=== PATIENT | male | born 1940 ===

== ENCOUNTER 2017-08-08 21:18 | Inpatient (IN) | payer MEDICARE ==
[2017-08-08 21:30] VITALS: BMI 34.0
[2017-08-08 21:42] LABS: BASO # 0.1 K/uL (0.0-0.2); BASO % 0.8 % (0.0-2.0); EOS # 0.1 K/uL (0.0-0.7); EOS % 1.3 % (0.0-4.0); HEMATOCRIT 51.3 % (35.0-51.0); LYMPH # 3.9 K/uL (1.0-4.3); LYMPH % 39.8 % (20.0-40.0); MEAN CORPUSCULAR HEMOGLOBIN 32.3 pg (27.0-31.0); MEAN PLATELET VOLUME 8.8 fL (7.2-11.7); MONO # 1.1 K/uL (0.0-0.8); MONO % 11.3 % (0.0-10.0); NRBC % 0.2 % (0.0-2.0); RED CELL DISTRIBUTION WIDTH 13.9 % (11.5-14.5); WHITE BLOOD COUNT 9.9 K/uL (4.8-10.8)
[2017-08-08 21:50] LABS: INR 1.1
[2017-08-08 21:59] LABS: ALB/GLOB RATIO 1.7 (1.0-2.1); ALKALINE PHOSPHATASE 95 U/L (38-126); ALT/SGPT 69 U/L (21-72); AST/SGOT 57 U/L (17-59); BLOOD UREA NITROGEN 14 mg/dL (9-20); CARBON DIOXIDE 20 mmol/L (22-30); CHLORIDE 102 mmol/L (98-107); GFR AFRICAN-AMERICAN > 60; GLUCOSE,RANDOM 121 mg/dL (75-110); POTASSIUM 3.4 mmol/L (3.6-5.2); SODIUM 136 mmol/L (132-148)
[2017-08-08] MEDS: Magnesium Sulfate 1 gm in D5W 1 GM/100 ML BAG IVPB SCH ×2 (22:00→22:03)
[2017-08-08] MEDS ORDERED: Propofol 10 mg/ml 1,000 MG/100 ML VIAL ONE (22:12)
[2017-08-08] MEDS ORDERED: Propofol 10 mg/ml Inj (20 ML) ONE (22:12)
[2017-08-08] MEDS ORDERED: Lidocaine 2 Grams in D5W 2,000 MG/500 ML BAG IV ONE (22:13)
[2017-08-08] MEDS ORDERED: Lidocaine 2 Grams in D5W 2,000 MG/500 ML BAG IV SCH (22:15)
[2017-08-08] MEDS ORDERED: Midazolam 2 MG/2 ML VIAL ONE (22:17)
[2017-08-08] MEDS ORDERED: Lidocaine 2% Inj (20ml) ONE (22:17)
--- NOTE | 2017-08-08 22:35 | C.PDOC ---
History Of Present Illness 76 year old male brought in by BLS after having LOC and found with an arrhythmia. BLS believed patient had torsades de pointes and shocked patient twice, patient returned to rhythm. Patient had a cardiac stent placed today with stent by Dr. Velez at [facility] [place]. Time Seen by Provider: 08/08/17 21:28 Chief Complaint (Nursing): Chest Pain History Per: EMS History/Exam Limitations: no limitations Onset/Duration Of Symptoms: Hrs Current Symptoms Are (Timing): Still Present Associated Symptoms: Syncope Recent travel outside of the [place]: No Past Medical History Reviewed: Historical Data, Nursing Documentation, Vital Signs Vital Signs: Last Vital Signs Temp 97.7 F 08/12/17 16:00 Pulse 56 L 08/12/17 20:00 Resp 10 L 08/12/17 20:00 BP 122/64 08/12/17 19:37 Pulse Ox 97 08/12/17 20:00 - Medical History PMH: HTN Surgical History: Coronary Stent Family History: States: Unknown Family Hx - Social History Hx Alcohol Use: No Hx Substance Use: No - Immunization History Hx Tetanus Toxoid Vaccination: No Hx Influenza Vaccination: No Hx Pneumococcal Vaccination: No Review Of Systems Constitutional: Negative for: Fever, Chills Cardiovascular: Negative for: Palpitations Respiratory: Negative for: Shortness of Breath Gastrointestinal: Negative for: Nausea, Vomiting Genitourinary: Negative for: Dysuria Skin: Negative for: Rash Neurological: Positive for: Other (LOC). Negative for: Weakness, Numbness Physical Exam - Physical Exam Appears: Non-toxic, No Acute Distress Skin: Normal Color, Warm, Dry Head: Atraumatic, Normacephalic Eye(s): bilateral: Normal Inspection, PERRL Oral Mucosa: Moist Neck: Normal, Supple Chest: Symmetrical Cardiovascular: Rhythm Regular Respiratory: Normal Breath Sounds, No Rales, No Rhonchi, No Wheezing Gastrointestinal/Abdominal: Soft, No Distention, Other (Obese) Male Genital: Other (Bandage to irght groin from cath. No swelling, ecchymosis, or pusitile mass.) Neurological/Psych: Oriented x3 ED Course And Treatment - Laboratory Results Result Diagrams: 08/12/17 06:36 08/12/17 06:36 ECG: Interpreted By Me ECG Rhythm: Atrial Fibrillation ECG Interpretation: Abnormal Rate From EC O2 Sat by Pulse Oximetry: 88 Pulse Ox Interpretation: Abnormal - Radiology CXR: Interpreted by Me CXR Interpretation: Yes: Heart Size, Other (+ widened mediastinum) Progress Note: 2114: Arrived ED, A/O x 3, hr irreg 70's, EKG AF 70, Mag Sulfate x 2 g IV, Amiodarone 150 mg IV bolus. 2119: ? Torades and LOC, + shock x 2 with regain of perfusing rhythm. Call to Dr. Casiano and Dr. Velez- who cath and one stent this AM. 2144: SHock x 1, amio Drip started, Code Heart Called- Heparin 500 IV, Plavix 75 mg PO, ASA 325 PO given. 2199: non-perfusing arrhythmia- Shock x 2 with return of perfusing rhythm. 2209: Dr. Velez in ED, Lido bolus and drip started, Amio drip d/c'd by Dr. Velez, requests pt intubated , non-perfusing arrhythmia w shock x 2 to perfusing rhythm. Repeat EKG AF 70, no acute ST changes. 2224: Pt electively intubated by this MD, propofol for sedation. 2229: pt left ED for Settlement Agent Critical Care Time - Critical Care Note Total Time (in mins): 90 Documented critical care: time excludes all time spent performing seperately billable procedures. Medical Decision Making Medical Decision Making: arrhythmia of Torsades de Pointes vs VF, refractory to Amiodaron and Lido, and Mg IV Code Heart by Dr. Velez, consider acute occluded stent placed this AM PMD Dr. Torres, who's pt's are admitted usually to Dr. Salas. Disposition Doctor Will See Patient In The: Hospital Counseled Patient/Family Regarding: Studies Performed, Diagnosis - Disposition Disposition: HOSPITALIZED Disposition Time: 22:50 Condition: CRITICAL - POA Core Measure Indicators: Code Heart - Clinical Impression Clinical Impression: Cardiac arrest, Acute non-ST segment elevation myocardial infarction, Torsades de pointes - Scribe Statement The provider has reviewed the documentation as recorded by the Scribnati Min All medical record entries made by the Scribe were at my direction and personally dictated by me. I have reviewed the chart and agree that the record accurately reflects my personal performance of the history, physical exam, medical decision making, and the department course for this patient. I have also personally directed, reviewed, and agree with the discharge instructions and disposition.
[2017-08-08] MEDS ORDERED: Propofol 10 mg/ml Inj (100 ml) IV SCH ×2 (22:50→22:53)
[2017-08-08] MEDS: Propofol 10 mg/ml 1,000 MG/100 ML VIAL IV PRN (22:55)
[2017-08-08] MEDS ORDERED: Amiodarone 150mg/3 ml vial ONE (23:00)
[2017-08-08] MEDS ORDERED: Potassium Chloride 20 mEq 40 MEQ/200 ML BAG IVPB ONE (23:04)
[2017-08-08] MEDS ORDERED: Metoprolol 1 mg/ml Inj IVP ONE (23:39)
--- NOTE | 2017-08-09 00:11 | CP.PCM.CON ---
History of Present Illness - History of Present Illness History of Present Illness: CCM 76 yo male with hx HTN who had Cardiac Cath & [place] with MIRTA to Cx [place] [facility] [place] to ED c/o chest pain and had Torsade arrythmia in ED requiring shock. Pt given Mg and started on amiodarone but had recurrent VF arrythmia without pulse requiring multiple defib. Pt intubated in ED and Code Heart activated. Pt to lab asst required levophed & had patent stent / LV fx was OK. Pt had another ventricular arrythmia requirng defib. and code blue called. Started on Lidocaine as well.Pt started on K+ supplements in lab asst.Pt on propofol and unable to give hx.Transveinous PM placed from R groin ROS-As noted All- NKDA Social- No tob/ etoh/ drugs Meds- reviewed FH- Unknown Intubated, sedated/ T-97.5 P-90 R-17 BP-127/97 Perrl Neck-no jvd Lungs-bilat bs Heart-rr Abd-bs+, soft, nontender Ext-no edema, pulses intact Labs, EKG, x-rays -reviewed A&P NSTEMI s/p Cardiac Cath / patent MIRTA s/p Cardiac Arrest/ Torsade Acute Resp Failure Shock Hypokalemia Hx HTN vent support in ICU cont ASA/Plavix cont Lidocaine and hold Amiodarone as per Cardiology / EP cont Pacing at 90 Optimize lytes repeat labs/CE titrate off levophed DVT & GI prophylaxis ECHO Cardiology f/u titrate sedation repeat cxr Past Patient History - Past Social History Smoking Status: Unknown If Ever Smoked - CARDIAC Hx Hypertension: Yes - PULMONARY Hx Respiratory Disorders: No - NEUROLOGICAL Hx Neurological Disorder: No - HEENT Hx HEENT Problems: No - RENAL Hx Chronic Kidney Disease: No - ENDOCRINE/METABOLIC Hx Endocrine Disorders: Yes Hx Diabetes Mellitus Type 2: Yes - HEMATOLOGICAL/ONCOLOGICAL Hx Blood Disorders: No - INTEGUMENTARY Hx Dermatological Problems: No - MUSCULOSKELETAL/RHEUMATOLOGICAL Hx Musculoskeletal Disorders: No - GASTROINTESTINAL Hx Gastrointestinal Disorders: Yes - GENITOURINARY/GYNECOLOGICAL Hx Genitourinary Disorders: No - PSYCHIATRIC Hx Substance Use: No - ANESTHESIA Hx Anesthesia: Yes Meds Allergies/Adverse Reactions: Allergies Allergy/AdvReac Type Severity Reaction Status Date / Time No Known Allergies Allergy Verified 08/08/17 21:43 - Medications Medications: Current Medications Amiodarone HCl 900 mg/ (Dextrose) 500 mls @ 33.33 mls/hr IV .Q15H1M LOLLY; 1 MG/ MIN PRN Reason: Protocol Stop: 08/09/17 04:00 Last Admin: 08/08/17 22:09 Dose: 33.33 mls/hr Amiodarone HCl 900 mg/ (Dextrose) 500 mls @ 17 mls/hr IV ONCE LOLLY Lidocaine HCl/Dextrose (Lidocaine 2 Grams In D5w) 2,000 mg in 500 mls @ 15 mls/ hr IV .Q24H LOLLY; 1 MG/MIN PRN Reason: Protocol Last Admin: 08/08/17 22:20 Dose: 15 mls/hr Propofol (Diprivan) 1,000 mg in 100 mls @ 3.266 mls/hr IV .Q24H PRN; Protocol; 5 MCG/KG/MIN PRN Reason: sedation Last Admin: 08/08/17 22:55 Dose: 3.266 mls/hr Propofol (Diprivan) 100 mg IV TITR LOLLY Propofol (Diprivan) 100 mg IV TITR LOLLY Results - Vital Signs Recent Vital Signs: Last Vital Signs Temp 97.6 F 08/08/17 21:43 Pulse 49 L 08/08/17 22:10 Resp 82 H 08/08/17 22:20 BP 102/68 08/08/17 22:20 Pulse Ox 88 L 08/08/17 22:50 - Labs Result Diagrams: 08/08/17 21:37 08/08/17 21:37 Labs: Laboratory Results - last 24 hr 08/08/17 08/08/17 08/08/17 21:35 21:37 21:37 WBC 9.9 RBC 5.24 Hgb 16.9 Hct 51.3 H MCV 98.0 H MCH 32.3 H MCHC 33.0 RDW 13.9 Plt Count 224 MPV 8.8 Neut % (Auto) 46.8 L Lymph % (Auto) 39.8 [place] % (Auto) 11.3 H Eos % (Auto) 1.3 Baso % (Auto) 0.8 Neut # 4.6 Lymph # 3.9 [place] # 1.1 H Eos # 0.1 Baso # 0.1 PT 12.1 INR 1.1 APTT 27 Sodium Potassium Chloride Carbon Dioxide Anion Gap BUN Creatinine Est GFR ( Amer) Est GFR (Non-Af Amer) POC Glucose (mg/dL) 149 H Random Glucose Calcium Total Bilirubin AST ALT Alkaline Phosphatase Troponin I NT-Pro-B Natriuret Pep Total Protein Albumin Globulin Albumin/Globulin Ratio 08/08/17 21:37 WBC RBC Hgb Hct MCV MCH MCHC RDW Plt Count MPV Neut % (Auto) Lymph % (Auto) [place] % (Auto) Eos % (Auto) Baso % (Auto) Neut # Lymph # [place] # Eos # Baso # PT INR APTT Sodium 136 Potassium 3.4 L Chloride 102 Carbon Dioxide 20 L Anion Gap 17 BUN 14 Creatinine 1.0 Est GFR ( Amer) > 60 Est GFR (Non-Af Amer) > 60 POC Glucose (mg/dL) Random Glucose 121 H Calcium 9.0 Total Bilirubin 1.0 AST 57 ALT 69 Alkaline Phosphatase 95 Troponin I 1.1100 H* NT-Pro-B Natriuret Pep 57.4 Total Protein 7.0 Albumin 4.5 Globulin 2.6 Albumin/Globulin Ratio 1.7 Assessment & Plan (1) Cardiac arrest Status: Acute (2) NSTEMI (non-ST elevated myocardial infarction) Status: Acute (3) Acute non-ST segment elevation myocardial infarction Status: Acute (4) Torsades de pointes Status: Acute (5) Respiratory failure Status: Acute (6) Hypokalemia Status: Acute (7) Shock Status: Acute (8) HTN (hypertension) Status: Chronic
[2017-08-09] MEDS ORDERED: Norepinephrine 16 MG in Dextrose 5% In Water 500 ML IV PRN (00:58)
[2017-08-09] MEDS ORDERED: Magnesium Sulfate 1 gm in D5W 1 GM/100 ML BAG IVPB ONE (01:00)
[2017-08-09 01:13] LABS: BASO % 0.2 % (0.0-2.0); EOS % 0.1 % (0.0-4.0); HEMATOCRIT 46.6 % (35.0-51.0); LYMPH # 0.5 K/uL (1.0-4.3); LYMPH % 3.7 % (20.0-40.0); MEAN CELL VOLUME 97.6 fL (80.0-94.0); MEAN CORPUSCULAR HEMOGLOBIN 32.8 pg (27.0-31.0); MEAN CORPUSCULAR HGB CONC 33.6 g/dL (33.0-37.0); MEAN PLATELET VOLUME 8.9 fL (7.2-11.7); MONO # 0.7 K/uL (0.0-0.8); PLATELET COUNT 209 K/uL (130-400); RED CELL DISTRIBUTION WIDTH 13.9 % (11.5-14.5); WHITE BLOOD COUNT 14.7 K/uL (4.8-10.8)
--- NOTE | 2017-08-09 01:22 | CP.PCM.HP ---
<Tisha Strickland - Last Filed: 08/09/17 01:17> History of Present Illness - History of Present Illness History of Present Illness: CC: brought in by BLS after having LOS and arrhythmia 76 yo male with hx HTN who had Cardiac Cath & PCI with MIRTA [place] [facility] [place]. Patient brought in by BLS after having LOS and arrhythmia. Patient shocked twice and returned to rhythm. Patient given Mg and started on Amiodarone, but had recurrent VF arrythmia without pulse requiring defibrillation. Patient intubated in ED and Code Heart activated. Patient sent labor relations representative and started on Levophed. Patient found to have patent stent and okay left ventricular function by Dr. Velez. Patient had another ventricular arrythmia requiring multiple defibrillations and code blue called. Patient started on Lidocaine and K+. Patient intubated and on propofol and unable to give history or answer ROS. Present on Admission - Present on Admission Any Indicators Present on Admission: No History of DVT/PE: No History of Uncontrolled Diabetes: No Urinary Catheter: No Decubitus Ulcer Present: No Review of Systems - Review of Systems Systems not reviewed;Unavailable: Intubated Past Patient History - Past Social History Smoking Status: Unknown If Ever Smoked - CARDIAC Hx Hypertension: Yes - PULMONARY Hx Respiratory Disorders: No - NEUROLOGICAL Hx Neurological Disorder: No - HEENT Hx HEENT Problems: No - RENAL Hx Chronic Kidney Disease: No - ENDOCRINE/METABOLIC Hx Endocrine Disorders: Yes Hx Diabetes Mellitus Type 2: Yes - HEMATOLOGICAL/ONCOLOGICAL Hx Blood Disorders: No - INTEGUMENTARY Hx Dermatological Problems: No - MUSCULOSKELETAL/RHEUMATOLOGICAL Hx Musculoskeletal Disorders: No - GASTROINTESTINAL Hx Gastrointestinal Disorders: Yes - GENITOURINARY/GYNECOLOGICAL Hx Genitourinary Disorders: No - PSYCHIATRIC Hx Substance Use: No - SURGICAL HISTORY Hx Coronary Stent: Yes - ANESTHESIA Hx Anesthesia: Yes Meds Allergies/Adverse Reactions: Allergies Allergy/AdvReac Type Severity Reaction Status Date / Time No Known Allergies Allergy Verified 08/08/17 21:43 Physical Exam - Head Exam Head Exam: ATRAUMATIC, NORMAL INSPECTION, NORMOCEPHALIC - Respiratory Exam Respiratory Exam: NORMAL BREATHING PATTERN Additional comments: intubated - Cardiovascular Exam Cardiovascular Exam: RRR, +S1, +S2 - GI/Abdominal Exam GI & Abdominal Exam: Distended, Normal Bowel Sounds, Soft - Extremities Exam Extremities exam: Positive for: normal inspection. Negative for: pedal edema - Skin Skin Exam: Intact, Normal Color, Warm Results - Vital Signs Recent Vital Signs: Last Vital Signs Temp 97.6 F 08/08/17 21:43 Pulse 49 L 08/08/17 22:10 Resp 82 H 08/08/17 22:20 BP 102/68 08/08/17 22:20 Pulse Ox 88 L 08/09/17 00:52 - Labs Result Diagrams: 08/08/17 21:37 08/08/17 21:37 Labs: Laboratory Results - last 24 hr 08/08/17 08/08/17 08/08/17 21:35 21:37 21:37 WBC 9.9 RBC 5.24 Hgb 16.9 Hct 51.3 H MCV 98.0 H MCH 32.3 H MCHC 33.0 RDW 13.9 Plt Count 224 MPV 8.8 Neut % (Auto) 46.8 L Lymph % (Auto) 39.8 [place] % (Auto) 11.3 H Eos % (Auto) 1.3 Baso % (Auto) 0.8 Neut # 4.6 Lymph # 3.9 [place] # 1.1 H Eos # 0.1 Baso # 0.1 PT 12.1 INR 1.1 APTT 27 Sodium Potassium Chloride Carbon Dioxide Anion Gap BUN Creatinine Est GFR ( Amer) Est GFR (Non-Af Amer) POC Glucose (mg/dL) 149 H Random Glucose Calcium Total Bilirubin AST ALT Alkaline Phosphatase Troponin I NT-Pro-B Natriuret Pep Total Protein Albumin Globulin Albumin/Globulin Ratio 08/08/17 21:37 WBC RBC Hgb Hct MCV MCH MCHC RDW Plt Count MPV Neut % (Auto) Lymph % (Auto) [place] % (Auto) Eos % (Auto) Baso % (Auto) Neut # Lymph # [place] # Eos # Baso # PT INR APTT Sodium 136 Potassium 3.4 L Chloride 102 Carbon Dioxide 20 L Anion Gap 17 BUN 14 Creatinine 1.0 Est GFR ( Amer) > 60 Est GFR (Non-Af Amer) > 60 POC Glucose (mg/dL) Random Glucose 121 H Calcium 9.0 Total Bilirubin 1.0 AST 57 ALT 69 Alkaline Phosphatase 95 Troponin I 1.1100 H* NT-Pro-B Natriuret Pep 57.4 Total Protein 7.0 Albumin 4.5 Globulin 2.6 Albumin/Globulin Ratio 1.7 Assessment & Plan - Assessment and Plan (Free Text) Assessment: s/p Cardiac cath Dr. Velez consulted, continue recommendations s/p Cardiac arrest vent support in ICU continue Lidocaine titrate off Levophed propofol for sedation 2/2 intubation continue ICU recommendations Prophylaxis GI: Pepcid 20mg ivp q12h DVT: 5000 u sc q8h <Locke,Jim More - Last Filed: 08/09/17 06:29> Results - Vital Signs Recent Vital Signs: Last Vital Signs Temp 97.5 F L 08/09/17 04:00 Pulse 89 08/09/17 03:10 Resp 18 08/09/17 03:10 BP 103/80 08/09/17 03:07 Pulse Ox 100 08/09/17 03:10 - Labs Result Diagrams: 08/09/17 01:00 08/09/17 01:00 Labs: Laboratory Results - last 24 hr 08/08/17 08/08/17 08/08/17 21:35 21:37 21:37 WBC 9.9 RBC 5.24 Hgb 16.9 Hct 51.3 H MCV 98.0 H MCH 32.3 H MCHC 33.0 RDW 13.9 Plt Count 224 MPV 8.8 Neut % (Auto) 46.8 L Lymph % (Auto) 39.8 [place] % (Auto) 11.3 H Eos % (Auto) 1.3 Baso % (Auto) 0.8 Neut # 4.6 Lymph # 3.9 [place] # 1.1 H Eos # 0.1 Baso # 0.1 Neutrophils % (Manual) Band Neutrophils % Lymphocytes % (Manual) Reactive Lymphs % Monocytes % (Manual) Toxic Granulation Platelet Estimate RBC Morphology PT 12.1 INR 1.1 APTT 27 Puncture Site pCO2 pO2 HCO3 ABG pH ABG Total CO2 ABG O2 Saturation ABG Base Excess ABG Hemoglobin ABG Carboxyhemoglobin POC ABG HHb (Measured) ABG Methemoglobin Andres Test A-a O2 Difference Respiratory Index Hgb O2 Saturation Vent Mode Mechanical Rate FiO2 Tidal Volume PEEP Sodium Potassium Chloride Carbon Dioxide Anion Gap BUN Creatinine Est GFR ( Amer) Est GFR (Non-Af Amer) POC Glucose (mg/dL) 149 H Random Glucose Calcium Phosphorus Magnesium Total Bilirubin AST ALT Alkaline Phosphatase Troponin I NT-Pro-B Natriuret Pep Total Protein Albumin Globulin Albumin/Globulin Ratio Blood Type Antibody Screen 08/08/17 08/09/17 08/09/17 21:37 01:00 01:00 WBC 14.7 H RBC 4.78 Hgb 15.7 Hct 46.6 MCV 97.6 H MCH 32.8 H MCHC 33.6 RDW 13.9 Plt Count 209 MPV 8.9 Neut % (Auto) 91.0 H Lymph % (Auto) 3.7 L [place] % (Auto) 5.0 Eos % (Auto) 0.1 Baso % (Auto) 0.2 Neut # 13.4 H Lymph # 0.5 L [place] # 0.7 Eos # 0.0 Baso # 0.0 Neutrophils % (Manual) 87 H Band Neutrophils % 1 Lymphocytes % (Manual) 5 L Reactive Lymphs % 2 H Monocytes % (Manual) 5 Toxic Granulation Present Platelet Estimate Normal RBC Morphology Normal PT INR APTT Puncture Site pCO2 pO2 HCO3 ABG pH ABG Total CO2 ABG O2 Saturation ABG Base Excess ABG Hemoglobin ABG Carboxyhemoglobin POC ABG HHb (Measured) ABG Methemoglobin Andres Test A-a O2 Difference Respiratory Index Hgb O2 Saturation Vent Mode Mechanical Rate FiO2 Tidal Volume PEEP Sodium 136 134 Potassium 3.4 L 4.1 Chloride 102 103 Carbon Dioxide 20 L 19 L Anion Gap 17 16 BUN 14 13 Creatinine 1.0 0.8 Est GFR ( Amer) > 60 > 60 Est GFR (Non-Af Amer) > 60 > 60 POC Glucose (mg/dL) Random Glucose 121 H 192 H Calcium 9.0 8.2 L Phosphorus 3.7 Magnesium 2.3 Total Bilirubin 1.0 1.0 AST 57 71 H D ALT 69 94 H D Alkaline Phosphatase 95 107 Troponin I 1.1100 H* NT-Pro-B Natriuret Pep 57.4 Total Protein 7.0 6.3 Albumin 4.5 4.0 Globulin 2.6 2.3 Albumin/Globulin Ratio 1.7 1.8 Blood Type Antibody Screen 08/09/17 08/09/17 08/09/17 01:00 01:05 05:39 WBC RBC Hgb Hct MCV MCH MCHC RDW Plt Count MPV Neut % (Auto) Lymph % (Auto) [place] % (Auto) Eos % (Auto) Baso % (Auto) Neut # Lymph # [place] # Eos # Baso # Neutrophils % (Manual) Band Neutrophils % Lymphocytes % (Manual) Reactive Lymphs % Monocytes % (Manual) Toxic Granulation Platelet Estimate RBC Morphology PT 11.5 INR 1.0 APTT 44 H D Puncture Site [place] pCO2 40 pO2 179 H HCO3 21.4 ABG pH 7.33 L ABG Total CO2 22.3 ABG O2 Saturation 100.0 H ABG Base Excess -4.5 L ABG Hemoglobin 15.3 ABG Carboxyhemoglobin 1.8 H POC ABG HHb (Measured) 0.0 ABG Methemoglobin 0.9 Andres Test Na A-a O2 Difference 128.0 Respiratory Index 0.7 Hgb O2 Saturation 97.2 Vent Mode Prvc Mechanical Rate 12 FiO2 50.0 Tidal Volume 500 PEEP 5 Sodium Potassium Chloride Carbon Dioxide Anion Gap BUN Creatinine Est GFR ( Amer) Est GFR (Non-Af Amer) POC Glucose (mg/dL) Random Glucose Calcium Phosphorus Magnesium Total Bilirubin AST ALT Alkaline Phosphatase Troponin I NT-Pro-B Natriuret Pep Total Protein Albumin Globulin Albumin/Globulin Ratio Blood Type O POSITIVE Antibody Screen Negative Assessment & Plan - Date & Time Date: 08/09/17 (I have seen and examined the patient. I agree with the findings and plan of care as documented by Dr. Strickland. Patient a code heart in ED. Dr Velez consulted. Cardiac cath done and then admitted to ICU. On Lidocaine drip. Cath negative for occlusion. Cardiac arrhythmia. Multiple defibrillations. Further management as per ICU. Monitor for acute changes.) Time: 06:26 Attending/Attestation - Attestation I have personally seen and examined this patient.: Yes I have fully participated in the care of the patient.: Yes I have reviewed all pertinent clinical information: Yes
[2017-08-09 01:34] LABS: ALB/GLOB RATIO 1.8 (1.0-2.1); ALKALINE PHOSPHATASE 107 U/L (38-126); ALT/SGPT 94 U/L (21-72); AST/SGOT 71 U/L (17-59); BLOOD UREA NITROGEN 13 mg/dL (9-20); CALCIUM 8.2 mg/dl (8.6-10.4); CARBON DIOXIDE 19 mmol/L (22-30); CHLORIDE 103 mmol/L (98-107); GFR AFRICAN-AMERICAN > 60; GLUCOSE,RANDOM 192 mg/dL (75-110); MAGNESIUM 2.3 mg/dL (1.6-2.3); PHOSPHOROUS 3.7 mg/dL (2.5-4.5); POTASSIUM 4.1 mmol/L (3.6-5.2); SODIUM 134 mmol/L (132-148); TOTAL PROTEIN 6.3 g/dL (6.3-8.3)
[2017-08-09 02:31] LABS: NEUTROPHIL 87 % (50-75); REACTIVE LYMPHOCYTES 2 % (0-0); TOTAL CELLS COUNTED 100
[2017-08-09] MEDS: Propofol 10 mg/ml 1,000 MG/100 ML VIAL IV PRN ×5 (05:53→20:50)
[2017-08-09 06:02] LABS: ABG MECHANICAL RATE 12; ARTERIAL BLOOD GAS MODE PRVC; ARTERIAL BLOOD HGB O2 SAT 97.2 % (95.0-98.0); ATERIAL BLOOD GAS PEEP 5; CARBOXYHEMOGLOBIN 1.8 % (0.5-1.5); DRAW SITE ALINE; METHEMOGLOBIN 0.9 % (0.0-3.0)
[2017-08-09 06:51] LABS: BASO % 0.2 % (0.0-2.0); HEMATOCRIT 46.5 % (35.0-51.0); LYMPH # 0.9 K/uL (1.0-4.3); LYMPH % 7.9 % (20.0-40.0); MEAN CELL VOLUME 97.7 fL (80.0-94.0); MEAN CORPUSCULAR HEMOGLOBIN 32.6 pg (27.0-31.0); MEAN CORPUSCULAR HGB CONC 33.4 g/dL (33.0-37.0); MEAN PLATELET VOLUME 9.4 fL (7.2-11.7); MONO # 0.9 K/uL (0.0-0.8); MONO % 7.5 % (0.0-10.0); NRBC % 0.1 % (0.0-2.0); PLATELET COUNT 213 K/uL (130-400); RED CELL DISTRIBUTION WIDTH 13.5 % (11.5-14.5); WHITE BLOOD COUNT 11.6 K/uL (4.8-10.8)
--- NOTE | 2017-08-09 06:58 | CP.PCM.CON ---
History of Present Illness - History of Present Illness History of Present Illness: Patient s/p L Cx PCI presented to [facility] with syncope and recurrent [place] episodes requiring multiple shocks Taken to [facility] emergently 1. Patent Coronaries 2. Normal EF 3. Hand injection Aortogram did not detect major abnormalities Patient now on Lidocaine drip and Overdrive pacing at HR of 90 DD: 1. Irritable Myocardium (Ischemia) Vs. 2. Electrolyte abnormalities EP Dr. Hampton to see patient this morning Continue ASA, Plavix, Statins, Hep SC, Pepcid and IVF Will Check ECHO Patient sedated and intubated Past Patient History - Past Medical History & Family History Past Medical History?: Yes - Past Social History Smoking Status: Unknown If Ever Smoked - CARDIAC Hx Hypertension: Yes - PULMONARY Hx Respiratory Disorders: No - NEUROLOGICAL Hx Neurological Disorder: No - HEENT Hx HEENT Problems: No - RENAL Hx Chronic Kidney Disease: No - ENDOCRINE/METABOLIC Hx Endocrine Disorders: Yes Hx Diabetes Mellitus Type 2: Yes - HEMATOLOGICAL/ONCOLOGICAL Hx Blood Disorders: No - INTEGUMENTARY Hx Dermatological Problems: No - MUSCULOSKELETAL/RHEUMATOLOGICAL Hx Musculoskeletal Disorders: No - GASTROINTESTINAL Hx Gastrointestinal Disorders: Yes - GENITOURINARY/GYNECOLOGICAL Hx Genitourinary Disorders: No - PSYCHIATRIC Hx Substance Use: No - SURGICAL HISTORY Hx Coronary Stent: Yes - ANESTHESIA Hx Anesthesia: Yes Meds Allergies/Adverse Reactions: Allergies Allergy/AdvReac Type Severity Reaction Status Date / Time No Known Allergies Allergy Verified 08/08/17 21:43 - Medications Medications: Current Medications Aspirin (Ecotrin) 81 mg PO DAILY [facility] Clopidogrel Bisulfate (Plavix) 75 mg PO DAILY [facility] Famotidine (Pepcid) 20 mg IVP Q12 [facility] Last Admin: 08/09/17 01:02 Dose: 20 mg Heparin Sodium (Porcine) (Heparin) 5,000 units SC Q8 [facility] Last Admin: 08/09/17 05:41 Dose: 5,000 units Propofol (Diprivan) 1,000 mg in 100 mls @ 3.266 mls/hr IV .Q24H PRN; Protocol; 5 MCG/KG/MIN PRN Reason: sedation Last Admin: 08/09/17 05:53 Dose: 30 mcg/kg/min, 19.6 mls/hr Norepinephrine Bitartrate 16 (mg/ Dextrose) 516 mls @ 7.74 mls/hr IV .Q24H PRN ; Protocol; 4 MCG/MIN PRN Reason: TITRATE PER MD ORDER Last Titration: 08/09/17 05:00 Dose: 7.75 mcg/min, 15 mls/hr Sodium Chloride (Sodium Chloride 0.9%) 1,000 mls @ 80 mls/hr IV .[id number] [facility] Last Admin: 08/09/17 00:00 Dose: 80 mls/hr Lidocaine HCl/Dextrose (Lidocaine 2 Grams In D5w) 2,000 mg in 500 mls @ 45 mls/ hr IV .Q11H7M [facility]; 3 MG/MIN PRN Reason: Protocol Propofol (Diprivan) 100 mg IV TITR [facility] Propofol (Diprivan) 100 mg IV TITR [facility] Rosuvastatin Calcium (Crestor) 20 mg PO HS [facility] Results - Vital Signs Recent Vital Signs: Last Vital Signs Temp 97.5 F L 08/09/17 04:00 Pulse 89 08/09/17 03:10 Resp 18 08/09/17 03:10 BP 103/80 08/09/17 03:07 Pulse Ox 100 08/09/17 03:10 - Labs Result Diagrams: 08/09/17 06:43 08/09/17 01:00 Labs: Laboratory Results - last 24 hr 08/08/17 08/08/17 08/08/17 21:35 21:37 21:37 WBC 9.9 RBC 5.24 Hgb 16.9 Hct 51.3 H MCV 98.0 H MCH 32.3 H MCHC 33.0 RDW 13.9 Plt Count 224 MPV 8.8 Neut % (Auto) 46.8 L Lymph % (Auto) 39.8 [place] % (Auto) 11.3 H Eos % (Auto) 1.3 Baso % (Auto) 0.8 Neut # 4.6 Lymph # 3.9 [place] # 1.1 H Eos # 0.1 Baso # 0.1 Neutrophils % (Manual) Band Neutrophils % Lymphocytes % (Manual) Reactive Lymphs % Monocytes % (Manual) Toxic Granulation Platelet Estimate RBC Morphology PT 12.1 INR 1.1 APTT 27 Puncture Site pCO2 pO2 HCO3 ABG pH ABG Total CO2 ABG O2 Saturation ABG Base Excess ABG Hemoglobin ABG Carboxyhemoglobin POC ABG HHb (Measured) ABG Methemoglobin Andres Test A-a O2 Difference Respiratory Index Hgb O2 Saturation Vent Mode Mechanical Rate FiO2 Tidal Volume PEEP Sodium Potassium Chloride Carbon Dioxide Anion Gap BUN Creatinine Est GFR ( Amer) Est GFR (Non-Af Amer) POC Glucose (mg/dL) 149 H Random Glucose Calcium Phosphorus Magnesium Total Bilirubin AST ALT Alkaline Phosphatase Troponin I NT-Pro-B Natriuret Pep Total Protein Albumin Globulin Albumin/Globulin Ratio Blood Type Antibody Screen 08/08/17 08/09/17 08/09/17 21:37 01:00 01:00 WBC 14.7 H RBC 4.78 Hgb 15.7 Hct 46.6 MCV 97.6 H MCH 32.8 H MCHC 33.6 RDW 13.9 Plt Count 209 MPV 8.9 Neut % (Auto) 91.0 H Lymph % (Auto) 3.7 L [place] % (Auto) 5.0 Eos % (Auto) 0.1 Baso % (Auto) 0.2 Neut # 13.4 H Lymph # 0.5 L [place] # 0.7 Eos # 0.0 Baso # 0.0 Neutrophils % (Manual) 87 H Band Neutrophils % 1 Lymphocytes % (Manual) 5 L Reactive Lymphs % 2 H Monocytes % (Manual) 5 Toxic Granulation Present Platelet Estimate Normal RBC Morphology Normal PT INR APTT Puncture Site pCO2 pO2 HCO3 ABG pH ABG Total CO2 ABG O2 Saturation ABG Base Excess ABG Hemoglobin ABG Carboxyhemoglobin POC ABG HHb (Measured) ABG Methemoglobin Andres Test A-a O2 Difference Respiratory Index Hgb O2 Saturation Vent Mode Mechanical Rate FiO2 Tidal Volume PEEP Sodium 136 134 Potassium 3.4 L 4.1 Chloride 102 103 Carbon Dioxide 20 L 19 L Anion Gap 17 16 BUN 14 13 Creatinine 1.0 0.8 Est GFR ( Amer) > 60 > 60 Est GFR (Non-Af Amer) > 60 > 60 POC Glucose (mg/dL) Random Glucose 121 H 192 H Calcium 9.0 8.2 L Phosphorus 3.7 Magnesium 2.3 Total Bilirubin 1.0 1.0 AST 57 71 H D ALT 69 94 H D Alkaline Phosphatase 95 107 Troponin I 1.1100 H* NT-Pro-B Natriuret Pep 57.4 Total Protein 7.0 6.3 Albumin 4.5 4.0 Globulin 2.6 2.3 Albumin/Globulin Ratio 1.7 1.8 Blood Type Antibody Screen 08/09/17 08/09/17 08/09/17 01:00 01:05 05:39 WBC RBC Hgb Hct MCV MCH MCHC RDW Plt Count MPV Neut % (Auto) Lymph % (Auto) [place] % (Auto) Eos % (Auto) Baso % (Auto) Neut # Lymph # [place] # Eos # Baso # Neutrophils % (Manual) Band Neutrophils % Lymphocytes % (Manual) Reactive Lymphs % Monocytes % (Manual) Toxic Granulation Platelet Estimate RBC Morphology PT 11.5 INR 1.0 APTT 44 H D Puncture Site [place] pCO2 40 pO2 179 H HCO3 21.4 ABG pH 7.33 L ABG Total CO2 22.3 ABG O2 Saturation 100.0 H ABG Base Excess -4.5 L ABG Hemoglobin 15.3 ABG Carboxyhemoglobin 1.8 H POC ABG HHb (Measured) 0.0 ABG Methemoglobin 0.9 Andres Test Na A-a O2 Difference 128.0 Respiratory Index 0.7 Hgb O2 Saturation 97.2 Vent Mode Prvc Mechanical Rate 12 FiO2 50.0 Tidal Volume 500 PEEP 5 Sodium Potassium Chloride Carbon Dioxide Anion Gap BUN Creatinine Est GFR ( Amer) Est GFR (Non-Af Amer) POC Glucose (mg/dL) Random Glucose Calcium Phosphorus Magnesium Total Bilirubin AST ALT Alkaline Phosphatase Troponin I NT-Pro-B Natriuret Pep Total Protein Albumin Globulin Albumin/Globulin Ratio Blood Type O POSITIVE Antibody Screen Negative
[2017-08-09 07:01] LABS: ALB/GLOB RATIO 1.1 (1.0-2.1); ALKALINE PHOSPHATASE 75 U/L (38-126); ALT/SGPT 83 U/L (21-72); AST/SGOT 60 U/L (17-59); BILIRUBIN,TOTAL 0.6 mg/dL (0.2-1.3); BLOOD UREA NITROGEN 12 mg/dL (9-20); CALCIUM 7.6 mg/dl (8.6-10.4); CARBON DIOXIDE 18 mmol/L (22-30); CHLORIDE 106 mmol/L (98-107); GFR AFRICAN-AMERICAN > 60; GLUCOSE,RANDOM 149 mg/dL (75-110); POTASSIUM 3.6 mmol/L (3.6-5.2); SODIUM 137 mmol/L (132-148); TOTAL PROTEIN 6.7 g/dL (6.3-8.3)
[2017-08-09] MEDS: Lidocaine 2 Grams in D5W 2,000 MG/500 ML BAG IV SCH ×3 (07:23→19:43)
--- NOTE | 2017-08-09 08:32 | RAD ---
PROCEDURE: CHEST RADIOGRAPH, 1 VIEW HISTORY: Shortness of breath COMPARISON: None available. FINDINGS: LUNGS: Mild venous congestion with mild linear atelectatic changes in the right midlung zone. Biapical pleural thickening with upper lobe granulomatous changes. Right hilar prominence. PLEURA: No pneumothorax or pleural fluid seen. CARDIOVASCULAR: Widened mediastinum with enlarged ectatic aorta. Mild cardiomegaly. OSSEOUS STRUCTURES: Degenerative changes the spine and shoulders. VISUALIZED UPPER ABDOMEN: Normal. OTHER FINDINGS: None. IMPRESSION: Mild venous congestion with mild linear atelectatic changes in the right midlung zone. Biapical pleural thickening with upper lobe granulomatous changes. Right hilar prominence. Widened mediastinum with enlarged ectatic aorta. Mild cardiomegaly.
--- NOTE | 2017-08-09 08:36 | CP.CCUPN ---
<Macho Perez - Last Filed: 08/09/17 10:50> CCU Subjective - Physician Review Subjective (Free Text): PGY1 ICU progress note for Dr. De León Patient seen and examined at bedside this morning. Patient is intubated. ROS unattainable. CCU Objective - Vital Signs / Intake & Output Vital Signs (Last 4 hours): Vital Signs Temp Pulse Resp BP BP Pulse Ox 08/09/17 08:23 96/69 L 08/09/17 08:22 90 14 100 08/09/17 08:20 90 14 100 08/09/17 08:10 90 12 100 08/09/17 08:00 97.5 F L 89 14 118/81 100 08/09/17 07:50 90 14 100 08/09/17 07:40 89 15 99 08/09/17 07:30 89 13 100 08/09/17 07:23 90 12 104/75 100 08/09/17 07:20 90 14 100 08/09/17 07:10 89 16 100 08/09/17 07:00 89 12 100 08/09/17 06:52 89 14 133/95 H 100 08/09/17 06:50 90 14 99 08/09/17 06:40 89 14 100 08/09/17 06:30 89 13 100 08/09/17 06:23 89 13 98/68 L 100 08/09/17 06:20 89 13 100 08/09/17 06:10 89 13 100 08/09/17 06:00 89 13 100 08/09/17 05:50 90 13 100 08/09/17 05:40 89 13 100 08/09/17 05:30 89 8 L 100 08/09/17 05:23 89 14 128/95 H 100 08/09/17 05:20 90 12 100 08/09/17 05:12 89 15 126/86 100 08/09/17 05:10 89 13 100 08/09/17 05:00 89 13 100 08/09/17 04:50 89 14 100 08/09/17 04:40 90 14 100 Intake and Output (Last 8hrs): Intake & Output 08/08/17 08/09/17 08/09/17 22:59 06:59 14:59 Intake Total 1381.8 345.0 Output Total 3400 125 Balance -2018.2 220.0 Weight 240 lb 244 lb 12.8 oz Intake: IV 206 20 Intake, IV Amount 1175.8 325.0 rt ac port 1 176.4 52.4 rt ac port 2 560 160 rt fem cordis 124.4 22.6 rt fem cordis distal 315 90 port Output: Urine 3400 125 Urethral (Melissa) 3400 125 Other: Voiding Method Indwelling Catheter # Bowel Movements 0 - Physical Exam Physical Exam Limitations: Positive for: Other (Intubated) Head: Positive for: Atraumatic Pupils: Positive for: PERRL Conjunctiva: Positive for: Normal Mouth: Positive for: Other (intubation) Nose (External): Positive for: Atraumatic Respiratory/Chest: Positive for: Clear to Auscultation, Good Air Exchange. Negative for: Respiratory Distress, Accessory Muscle Use Cardiovascular: Positive for: Regular Rate and Rhythm Abdomen: Positive for: Normal Bowel Sounds. Negative for: Distention Upper Extremity: Negative for: Edema Lower Extremity: Positive for: Other (SCDs in place). Negative for: Edema Neurological: Positive for: Other (intubated). Negative for: GCS=15 Psychiatric: Negative for: Alert, Oriented x 3 - Medications Active Medications: Active Medications Generic Name Dose Route Start Last Admin Trade Name Freq PRN Reason Stop Dose Admin Aspirin 81 mg 08/09/17 10:00 Ecotrin PO DAILY LOLLY Clopidogrel Bisulfate 75 mg 08/09/17 10:00 Plavix PO DAILY LOLLY Famotidine 20 mg 08/09/17 00:30 08/09/17 01:02 Pepcid IVP 20 mg Q12 LOLLY Administration Heparin Sodium (Porcine) 5,000 units 08/09/17 06:00 08/09/17 05:41 Heparin SC 5,000 units Q8 LOLLY Administration Propofol 1,000 mg in 100 mls @ 3.266 mls/hr 08/08/17 21:45 08/09/17 07:13 Diprivan IV 40.11 mcg/kg/min .Q24H PRN 26.2 mls/hr sedation Titration Protocol 5 MCG/KG/MIN Norepinephrine Bitartrate 16 516 mls @ 7.74 mls/hr 08/09/17 00:58 08/09/17 06 :53 mg/ Dextrose IV 5.83 mcg/min .Q24H PRN 11.3 mls/hr TITRATE PER MD ORDER Titration Protocol 4 MCG/MIN Sodium Chloride 1,000 mls @ 80 mls/hr 08/09/17 00:00 08/09/17 00:00 Sodium Chloride 0.9% IV 80 mls/hr .[id number] LOLLY Administration Lidocaine HCl/Dextrose 2,000 mg in 500 mls @ 45 mls/hr 08/09/17 06:52 07:23 Lidocaine 2 Grams In D5w IV Not Given .[id number] LOLLY Protocol 3 MG/MIN Propofol 100 mg 08/08/17 22:50 Diprivan IV TITR LOLLY Propofol 100 mg 08/08/17 22:53 Diprivan IV TITR LOLLY Rosuvastatin Calcium 20 mg 08/09/17 22:00 Crestor PO HS LOLLY - Patient Studies Lab Studies: Lab Studies 08/09/17 08/09/17 08/09/17 Range/Units 06:43 06:36 05:39 WBC 11.6 H (4.8-10.8) K/uL RBC 4.75 (4.40-5.90) Mil/uL Hgb 15.5 (12.0-18.0) g/dL Hct 46.5 (35.0-51.0) % MCV 97.7 H (80.0-94.0) fL MCH 32.6 H (27.0-31.0) pg MCHC 33.4 (33.0-37.0) g/dL RDW 13.5 (11.5-14.5) % Plt Count 213 (130-400) K/uL MPV 9.4 (7.2-11.7) fL Neut % (Auto) 84.4 H (50.0-75.0) % Lymph % (Auto) 7.9 L (20.0-40.0) % [place] % (Auto) 7.5 (0.0-10.0) % Eos % (Auto) 0.0 (0.0-4.0) % Baso % (Auto) 0.2 (0.0-2.0) % Neut # 9.8 H (1.8-7.0) K/uL Lymph # 0.9 L (1.0-4.3) K/uL [place] # 0.9 H (0.0-0.8) K/uL Eos # 0.0 (0.0-0.7) K/uL Baso # 0.0 (0.0-0.2) K/uL Neutrophils % (Manual) (50-75) % Band Neutrophils % (0-2) % Lymphocytes % (Manual) (20-40) % Reactive Lymphs % (0-0) % Monocytes % (Manual) (0-10) % Toxic Granulation Platelet Estimate (NORMAL) RBC Morphology PT (9.7-12.2) SECONDS INR APTT (21-34) SECONDS Puncture Site [place] pCO2 40 (35-45) mm/Hg pO2 179 H (80-100) mm/Hg HCO3 21.4 (21-28) mmol/L ABG pH 7.33 L (7.35-7.45) ABG Total CO2 22.3 (22-28) mmol/L ABG O2 Saturation 100.0 H (95-98) % ABG Base Excess -4.5 L (-2.0-3.0) mmol/L ABG Hemoglobin 15.3 (11.7-17.4) g/dL ABG Carboxyhemoglobin 1.8 H (0.5-1.5) % POC ABG HHb (Measured) 0.0 (0.0-5.0) % ABG Methemoglobin 0.9 (0.0-3.0) % Andres Test Na A-a O2 Difference 128.0 mm/Hg Respiratory Index 0.7 Hgb O2 Saturation 97.2 (95.0-98.0) % Vent Mode Prvc Mechanical Rate 12 FiO2 50.0 % Tidal Volume 500 PEEP 5 Sodium 137 (132-148) mmol/L Potassium 3.6 (3.6-5.2) mmol/L Chloride 106 (98-107) mmol/L Carbon Dioxide 18 L (22-30) mmol/L Anion Gap 17 (10-20) BUN 12 (9-20) mg/dL Creatinine 0.8 (0.8-1.5) mg/dL Est GFR ( Amer) > 60 Est GFR (Non-Af Amer) > 60 POC Glucose (mg/dL) (65-110) mg/dL Random Glucose 149 H (75-110) mg/dL Calcium 7.6 L (8.6-10.4) mg/dl Phosphorus 7.0 H (2.5-4.5) mg/dL Magnesium 2.0 (1.6-2.3) mg/dL Total Bilirubin 0.6 (0.2-1.3) mg/dL AST 60 H (17-59) U/L ALT 83 H (21-72) U/L Alkaline Phosphatase 75 (38-126) U/L Troponin I 0.9660 H* (0.00-0.120) ng/mL NT-Pro-B Natriuret Pep (0-900) pg/mL Total Protein 6.7 (6.3-8.3) g/dL Albumin 3.5 (3.5-5.0) g/dL Globulin 3.2 (2.2-3.9) gm/dL Albumin/Globulin Ratio 1.1 (1.0-2.1) Blood Type Antibody Screen 08/09/17 08/09/17 08/09/17 Range/Units 01:05 01:00 01:00 WBC 14.7 H (4.8-10.8) K/uL RBC 4.78 (4.40-5.90) Mil/uL Hgb 15.7 (12.0-18.0) g/dL Hct 46.6 (35.0-51.0) % MCV 97.6 H (80.0-94.0) fL MCH 32.8 H (27.0-31.0) pg MCHC 33.6 (33.0-37.0) g/dL RDW 13.9 (11.5-14.5) % Plt Count 209 (130-400) K/uL MPV 8.9 (7.2-11.7) fL Neut % (Auto) 91.0 H (50.0-75.0) % Lymph % (Auto) 3.7 L (20.0-40.0) % [place] % (Auto) 5.0 (0.0-10.0) % Eos % (Auto) 0.1 (0.0-4.0) % Baso % (Auto) 0.2 (0.0-2.0) % Neut # 13.4 H (1.8-7.0) K/uL Lymph # 0.5 L (1.0-4.3) K/uL [place] # 0.7 (0.0-0.8) K/uL Eos # 0.0 (0.0-0.7) K/uL Baso # 0.0 (0.0-0.2) K/uL Neutrophils % (Manual) 87 H (50-75) % Band Neutrophils % 1 (0-2) % Lymphocytes % (Manual) 5 L (20-40) % Reactive Lymphs % 2 H (0-0) % Monocytes % (Manual) 5 (0-10) % Toxic Granulation Present Platelet Estimate Normal (NORMAL) RBC Morphology Normal PT 11.5 (9.7-12.2) SECONDS INR 1.0 APTT 44 H D (21-34) SECONDS Puncture Site pCO2 (35-45) mm/Hg pO2 (80-100) mm/Hg HCO3 (21-28) mmol/L ABG pH (7.35-7.45) ABG Total CO2 (22-28) mmol/L ABG O2 Saturation (95-98) % ABG Base Excess (-2.0-3.0) mmol/L ABG Hemoglobin (11.7-17.4) g/dL ABG Carboxyhemoglobin (0.5-1.5) % POC ABG HHb (Measured) (0.0-5.0) % ABG Methemoglobin (0.0-3.0) % Andres Test A-a O2 Difference mm/Hg Respiratory Index Hgb O2 Saturation (95.0-98.0) % Vent Mode Mechanical Rate FiO2 % Tidal Volume PEEP Sodium (132-148) mmol/L Potassium (3.6-5.2) mmol/L Chloride (98-107) mmol/L Carbon Dioxide (22-30) mmol/L Anion Gap (10-20) BUN (9-20) mg/dL Creatinine (0.8-1.5) mg/dL Est GFR ( Amer) Est GFR (Non-Af Amer) POC Glucose (mg/dL) (65-110) mg/dL Random Glucose (75-110) mg/dL Calcium (8.6-10.4) mg/dl Phosphorus (2.5-4.5) mg/dL Magnesium (1.6-2.3) mg/dL Total Bilirubin (0.2-1.3) mg/dL AST (17-59) U/L ALT (21-72) U/L Alkaline Phosphatase (38-126) U/L Troponin I (0.00-0.120) ng/mL NT-Pro-B Natriuret Pep (0-900) pg/mL Total Protein (6.3-8.3) g/dL Albumin (3.5-5.0) g/dL Globulin (2.2-3.9) gm/dL Albumin/Globulin Ratio (1.0-2.1) Blood Type O POSITIVE Antibody Screen Negative 08/09/17 08/08/17 08/08/17 Range/Units 01:00 21:37 21:37 WBC (4.8-10.8) K/uL RBC (4.40-5.90) Mil/uL Hgb (12.0-18.0) g/dL Hct (35.0-51.0) % MCV (80.0-94.0) fL MCH (27.0-31.0) pg MCHC (33.0-37.0) g/dL RDW (11.5-14.5) % Plt Count (130-400) K/uL MPV (7.2-11.7) fL Neut % (Auto) (50.0-75.0) % Lymph % (Auto) (20.0-40.0) % [place] % (Auto) (0.0-10.0) % Eos % (Auto) (0.0-4.0) % Baso % (Auto) (0.0-2.0) % Neut # (1.8-7.0) K/uL Lymph # (1.0-4.3) K/uL [place] # (0.0-0.8) K/uL Eos # (0.0-0.7) K/uL Baso # (0.0-0.2) K/uL Neutrophils % (Manual) (50-75) % Band Neutrophils % (0-2) % Lymphocytes % (Manual) (20-40) % Reactive Lymphs % (0-0) % Monocytes % (Manual) (0-10) % Toxic Granulation Platelet Estimate (NORMAL) RBC Morphology PT 12.1 (9.7-12.2) SECONDS INR 1.1 APTT 27 (21-34) SECONDS Puncture Site pCO2 (35-45) mm/Hg pO2 (80-100) mm/Hg HCO3 (21-28) mmol/L ABG pH (7.35-7.45) ABG Total CO2 (22-28) mmol/L ABG O2 Saturation (95-98) % ABG Base Excess (-2.0-3.0) mmol/L ABG Hemoglobin (11.7-17.4) g/dL ABG Carboxyhemoglobin (0.5-1.5) % POC ABG HHb (Measured) (0.0-5.0) % ABG Methemoglobin (0.0-3.0) % Andres Test A-a O2 Difference mm/Hg Respiratory Index Hgb O2 Saturation (95.0-98.0) % Vent Mode Mechanical Rate FiO2 % Tidal Volume PEEP Sodium 134 136 (132-148) mmol/L Potassium 4.1 3.4 L (3.6-5.2) mmol/L Chloride 103 102 (98-107) mmol/L Carbon Dioxide 19 L 20 L (22-30) mmol/L Anion Gap 16 17 (10-20) BUN 13 14 (9-20) mg/dL Creatinine 0.8 1.0 (0.8-1.5) mg/dL Est GFR ( Amer) > 60 > 60 Est GFR (Non-Af Amer) > 60 > 60 POC Glucose (mg/dL) (65-110) mg/dL Random Glucose 192 H 121 H (75-110) mg/dL Calcium 8.2 L 9.0 (8.6-10.4) mg/dl Phosphorus 3.7 (2.5-4.5) mg/dL Magnesium 2.3 (1.6-2.3) mg/dL Total Bilirubin 1.0 1.0 (0.2-1.3) mg/dL AST 71 H D 57 (17-59) U/L ALT 94 H D 69 (21-72) U/L Alkaline Phosphatase 107 95 (38-126) U/L Troponin I 1.1100 H* (0.00-0.120) ng/mL NT-Pro-B Natriuret Pep 57.4 (0-900) pg/mL Total Protein 6.3 7.0 (6.3-8.3) g/dL Albumin 4.0 4.5 (3.5-5.0) g/dL Globulin 2.3 2.6 (2.2-3.9) gm/dL Albumin/Globulin Ratio 1.8 1.7 (1.0-2.1) Blood Type Antibody Screen 08/08/17 08/08/17 Range/Units 21:37 21:35 WBC 9.9 (4.8-10.8) K/uL RBC 5.24 (4.40-5.90) Mil/uL Hgb 16.9 (12.0-18.0) g/dL Hct 51.3 H (35.0-51.0) % MCV 98.0 H (80.0-94.0) fL MCH 32.3 H (27.0-31.0) pg MCHC 33.0 (33.0-37.0) g/dL RDW 13.9 (11.5-14.5) % Plt Count 224 (130-400) K/uL MPV 8.8 (7.2-11.7) fL Neut % (Auto) 46.8 L (50.0-75.0) % Lymph % (Auto) 39.8 (20.0-40.0) % [place] % (Auto) 11.3 H (0.0-10.0) % Eos % (Auto) 1.3 (0.0-4.0) % Baso % (Auto) 0.8 (0.0-2.0) % Neut # 4.6 (1.8-7.0) K/uL Lymph # 3.9 (1.0-4.3) K/uL [place] # 1.1 H (0.0-0.8) K/uL Eos # 0.1 (0.0-0.7) K/uL Baso # 0.1 (0.0-0.2) K/uL Neutrophils % (Manual) (50-75) % Band Neutrophils % (0-2) % Lymphocytes % (Manual) (20-40) % Reactive Lymphs % (0-0) % Monocytes % (Manual) (0-10) % Toxic Granulation Platelet Estimate (NORMAL) RBC Morphology PT (9.7-12.2) SECONDS INR APTT (21-34) SECONDS Puncture Site pCO2 (35-45) mm/Hg pO2 (80-100) mm/Hg HCO3 (21-28) mmol/L ABG pH (7.35-7.45) ABG Total CO2 (22-28) mmol/L ABG O2 Saturation (95-98) % ABG Base Excess (-2.0-3.0) mmol/L ABG Hemoglobin (11.7-17.4) g/dL ABG Carboxyhemoglobin (0.5-1.5) % POC ABG HHb (Measured) (0.0-5.0) % ABG Methemoglobin (0.0-3.0) % Andres Test A-a O2 Difference mm/Hg Respiratory Index Hgb O2 Saturation (95.0-98.0) % Vent Mode Mechanical Rate FiO2 % Tidal Volume PEEP Sodium (132-148) mmol/L Potassium (3.6-5.2) mmol/L Chloride (98-107) mmol/L Carbon Dioxide (22-30) mmol/L Anion Gap (10-20) BUN (9-20) mg/dL Creatinine (0.8-1.5) mg/dL Est GFR ( Amer) Est GFR (Non-Af Amer) POC Glucose (mg/dL) 149 H (65-110) mg/dL Random Glucose (75-110) mg/dL Calcium (8.6-10.4) mg/dl Phosphorus (2.5-4.5) mg/dL Magnesium (1.6-2.3) mg/dL Total Bilirubin (0.2-1.3) mg/dL AST (17-59) U/L ALT (21-72) U/L Alkaline Phosphatase (38-126) U/L Troponin I (0.00-0.120) ng/mL NT-Pro-B Natriuret Pep (0-900) pg/mL Total Protein (6.3-8.3) g/dL Albumin (3.5-5.0) g/dL Globulin (2.2-3.9) gm/dL Albumin/Globulin Ratio (1.0-2.1) Blood Type Antibody Screen Laboratory Results - last 24 hr 08/08/17 08/08/17 08/08/17 21:35 21:37 21:37 WBC 9.9 RBC 5.24 Hgb 16.9 Hct 51.3 H MCV 98.0 H MCH 32.3 H MCHC 33.0 RDW 13.9 Plt Count 224 MPV 8.8 Neut % (Auto) 46.8 L Lymph % (Auto) 39.8 [place] % (Auto) 11.3 H Eos % (Auto) 1.3 Baso % (Auto) 0.8 Neut # 4.6 Lymph # 3.9 [place] # 1.1 H Eos # 0.1 Baso # 0.1 Neutrophils % (Manual) Band Neutrophils % Lymphocytes % (Manual) Reactive Lymphs % Monocytes % (Manual) Toxic Granulation Platelet Estimate RBC Morphology PT 12.1 INR 1.1 APTT 27 Puncture Site pCO2 pO2 HCO3 ABG pH ABG Total CO2 ABG O2 Saturation ABG Base Excess ABG Hemoglobin ABG Carboxyhemoglobin POC ABG HHb (Measured) ABG Methemoglobin Andres Test A-a O2 Difference Respiratory Index Hgb O2 Saturation Vent Mode Mechanical Rate FiO2 Tidal Volume PEEP Sodium Potassium Chloride Carbon Dioxide Anion Gap BUN Creatinine Est GFR ( Amer) Est GFR (Non-Af Amer) POC Glucose (mg/dL) 149 H Random Glucose Calcium Phosphorus Magnesium Total Bilirubin AST ALT Alkaline Phosphatase Troponin I NT-Pro-B Natriuret Pep Total Protein Albumin Globulin Albumin/Globulin Ratio Blood Type Antibody Screen 08/08/17 08/09/17 08/09/17 21:37 01:00 01:00 WBC 14.7 H RBC 4.78 Hgb 15.7 Hct 46.6 MCV 97.6 H MCH 32.8 H MCHC 33.6 RDW 13.9 Plt Count 209 MPV 8.9 Neut % (Auto) 91.0 H Lymph % (Auto) 3.7 L [place] % (Auto) 5.0 Eos % (Auto) 0.1 Baso % (Auto) 0.2 Neut # 13.4 H Lymph # 0.5 L [place] # 0.7 Eos # 0.0 Baso # 0.0 Neutrophils % (Manual) 87 H Band Neutrophils % 1 Lymphocytes % (Manual) 5 L Reactive Lymphs % 2 H Monocytes % (Manual) 5 Toxic Granulation Present Platelet Estimate Normal RBC Morphology Normal PT INR APTT Puncture Site pCO2 pO2 HCO3 ABG pH ABG Total CO2 ABG O2 Saturation ABG Base Excess ABG Hemoglobin ABG Carboxyhemoglobin POC ABG HHb (Measured) ABG Methemoglobin Andres Test A-a O2 Difference Respiratory Index Hgb O2 Saturation Vent Mode Mechanical Rate FiO2 Tidal Volume PEEP Sodium 136 134 Potassium 3.4 L 4.1 Chloride 102 103 Carbon Dioxide 20 L 19 L Anion Gap 17 16 BUN 14 13 Creatinine 1.0 0.8 Est GFR ( Amer) > 60 > 60 Est GFR (Non-Af Amer) > 60 > 60 POC Glucose (mg/dL) Random Glucose 121 H 192 H Calcium 9.0 8.2 L Phosphorus 3.7 Magnesium 2.3 Total Bilirubin 1.0 1.0 AST 57 71 H D ALT 69 94 H D Alkaline Phosphatase 95 107 Troponin I 1.1100 H* NT-Pro-B Natriuret Pep 57.4 Total Protein 7.0 6.3 Albumin 4.5 4.0 Globulin 2.6 2.3 Albumin/Globulin Ratio 1.7 1.8 Blood Type Antibody Screen 08/09/17 08/09/17 08/09/17 01:00 01:05 05:39 WBC RBC Hgb Hct MCV MCH MCHC RDW Plt Count MPV Neut % (Auto) Lymph % (Auto) [place] % (Auto) Eos % (Auto) Baso % (Auto) Neut # Lymph # [place] # Eos # Baso # Neutrophils % (Manual) Band Neutrophils % Lymphocytes % (Manual) Reactive Lymphs % Monocytes % (Manual) Toxic Granulation Platelet Estimate RBC Morphology PT 11.5 INR 1.0 APTT 44 H D Puncture Site [place] pCO2 40 pO2 179 H HCO3 21.4 ABG pH 7.33 L ABG Total CO2 22.3 ABG O2 Saturation 100.0 H ABG Base Excess -4.5 L ABG Hemoglobin 15.3 ABG Carboxyhemoglobin 1.8 H POC ABG HHb (Measured) 0.0 ABG Methemoglobin 0.9 Andres Test Na A-a O2 Difference 128.0 Respiratory Index 0.7 Hgb O2 Saturation 97.2 Vent Mode Prvc Mechanical Rate 12 FiO2 50.0 Tidal Volume 500 PEEP 5 Sodium Potassium Chloride Carbon Dioxide Anion Gap BUN Creatinine Est GFR ( Amer) Est GFR (Non-Af Amer) POC Glucose (mg/dL) Random Glucose Calcium Phosphorus Magnesium Total Bilirubin AST ALT Alkaline Phosphatase Troponin I NT-Pro-B Natriuret Pep Total Protein Albumin Globulin Albumin/Globulin Ratio Blood Type O POSITIVE Antibody Screen Negative 08/09/17 08/09/17 06:36 06:43 WBC 11.6 H RBC 4.75 Hgb 15.5 Hct 46.5 MCV 97.7 H MCH 32.6 H MCHC 33.4 RDW 13.5 Plt Count 213 MPV 9.4 Neut % (Auto) 84.4 H Lymph % (Auto) 7.9 L [place] % (Auto) 7.5 Eos % (Auto) 0.0 Baso % (Auto) 0.2 Neut # 9.8 H Lymph # 0.9 L [place] # 0.9 H Eos # 0.0 Baso # 0.0 Neutrophils % (Manual) Band Neutrophils % Lymphocytes % (Manual) Reactive Lymphs % Monocytes % (Manual) Toxic Granulation Platelet Estimate RBC Morphology PT INR APTT Puncture Site pCO2 pO2 HCO3 ABG pH ABG Total CO2 ABG O2 Saturation ABG Base Excess ABG Hemoglobin ABG Carboxyhemoglobin POC ABG HHb (Measured) ABG Methemoglobin Andres Test A-a O2 Difference Respiratory Index Hgb O2 Saturation Vent Mode Mechanical Rate FiO2 Tidal Volume PEEP Sodium 137 Potassium 3.6 Chloride 106 Carbon Dioxide 18 L Anion Gap 17 BUN 12 Creatinine 0.8 Est GFR ( Amer) > 60 Est GFR (Non-Af Amer) > 60 POC Glucose (mg/dL) Random Glucose 149 H Calcium 7.6 L Phosphorus 7.0 H Magnesium 2.0 Total Bilirubin 0.6 AST 60 H ALT 83 H Alkaline Phosphatase 75 Troponin I 0.9660 H* NT-Pro-B Natriuret Pep Total Protein 6.7 Albumin 3.5 Globulin 3.2 Albumin/Globulin Ratio 1.1 Blood Type Antibody Screen EKG/Cardiology Studies: Cardiology / EKG Studies 08/08/17 21:29 ELECTROCARDIOGRAM Stat Comment: Mode Of Transportation: BED Reason For Exam: SOB 08/09/17 00:22 EKG [ELECTROCARDIOGRAM] Stat Comment: Mode Of Transportation: PORTABLE Reason For Exam: vfib Fingerstick Blood Sugar Results: 149 Review of Systems - Review of Systems Systems not reviewed;Unavailable: Intubated Assessment/Plan - Assessment and Plan (Free Text) Assessment: 76 year old male with PMH of HTN and DM presenting with LOC and V-fib/torsade's after PCI and MIRTA placement. Code Heart/Code Blue. Shocked 2x by EMS/7x in ED/ 6x in [place]. Plan: Cardio: Dr. Velez consulted, help appreciated Dr. Hampton consulted, help appreciated Code Heart/Code Blue s/p left circumflex MIRTA (08/08/17) at [facility] [place] Velez patient was taken back to [place] [place] overnight - no blockages seen, stent patent. V-fib w/ or w/o "Torsades" arrhythmias - shocked 2x by EMS/shocked 7x by ER/ shocked 6x in [place] = 15 total shocks LV function preserved Aspirin 81mg PO daily Plavix 75mg PO daily Crestor 20mg PO HS Levophed drip Lidocaine drip Transvenous pacing - "overdrive" pacing - cardio will attempt to ween him down NS @ 80ml/hr NS 500ml bolus challenge given for hypotension f/u cardio recs - due to failure of documentation (rhythm strip) of the Torsade's rhythm, amiodarone use is contra indicated at this time, per Dr. Hampton - may need MRI of heart for further evaluation - should be considered for ICD placement Respiratory: Intubated pCO2 40 pO2 179 HCO3 21.4 pH 7.33 Current vent settings: Prvc, TV 500/FiO2 50/RR 12/PEEP 5 Neuro: Propofol drip f/u Head CT - r/o brain bleed due to patient on anticoagulation for MIRTA placement and became unresponsive at home, per Dr. Velez Electrolytes: K+ = 3.6 Goal potassium > 4 K+ 20 mEq IVPB given x2 Phos 7.0 - continue to monitor Prophylactic: Pepcid 20mg IVP q12 Heparin 5,000 units SC q8 Case discussed with Dr[address] Sarthak Perez PGY1 <Yves De León - Last Filed: 08/09/17 18:38> CCU Objective - Vital Signs / Intake & Output Vital Signs (Last 4 hours): Vital Signs Temp Pulse Resp BP Pulse Ox 08/09/17 18:10 70 15 100 08/09/17 18:00 97.3 F L 71 12 107/66 100 08/09/17 17:50 71 12 100 08/09/17 17:40 71 13 100 08/09/17 17:30 72 12 97 08/09/17 17:23 72 17 90/58 L 99 08/09/17 17:20 71 15 97 08/09/17 17:10 71 15 100 08/09/17 17:00 71 17 100 08/09/17 16:50 69 16 100 08/09/17 16:40 71 15 100 08/09/17 16:30 70 15 100 08/09/17 16:23 71 15 91/65 L 100 08/09/17 16:20 72 16 100 08/09/17 16:10 71 13 100 08/09/17 16:00 70 16 100 08/09/17 15:50 70 14 100 08/09/17 15:40 72 13 100 08/09/17 15:30 71 13 100 08/09/17 15:23 70 13 94/58 L 100 08/09/17 15:20 71 11 L 100 08/09/17 15:10 70 13 100 08/09/17 15:00 89 15 100 08/09/17 14:50 89 16 100 08/09/17 14:40 90 19 100 Intake and Output (Last 8hrs): Intake & Output 08/09/17 08/09/17 08/09/17 06:59 14:59 22:59 Intake Total 1381.8 2187.2 767.2 Output Total 3400 430 395 Balance -2018.2 1757.2 372.2 Weight 244 lb 12.8 oz Intake: IV 206 210 200 Intake, IV Amount 1175.8 1897.2 567.2 Left Antecubital 200 rt ac port 1 176.4 213.4 104.8 rt ac port 2 560 1060 320 rt fem cordis 124.4 63.8 22.4 rt fem cordis distal 315 360 120 port Other 80 Output: Urine 3400 430 395 Urethral (Melissa) 3400 430 395 Other: Voiding Method Indwelling Catheter # Bowel Movements 0 0 - Medications Active Medications: Active Medications Generic Name Dose Route Start Last Admin Trade Name Ducq PRN Reason Stop Dose Admin Aspirin 81 mg 08/09/17 10:00 08/09/17 09:37 Ecotrin PO 81 mg DAILY LOLLY Administration Clopidogrel Bisulfate 75 mg 08/09/17 10:00 08/09/17 09:37 Plavix PO 75 mg DAILY LOLLY Administration Famotidine 20 mg 08/09/17 00:30 08/09/17 09:36 Pepcid IVP 20 mg Q12 LOLLY Administration Heparin Sodium (Porcine) 5,000 units 08/09/17 06:00 08/09/17 13:48 Heparin SC 5,000 units Q8 LOLLY Administration Norepinephrine Bitartrate 16 516 mls @ 7.74 mls/hr 08/09/17 00:58 08/09/17 11 :00 mg/ Dextrose IV 2.89 mcg/min .Q24H PRN 5.6 mls/hr TITRATE PER MD ORDER Titration Protocol 4 MCG/MIN Sodium Chloride 1,000 mls @ 80 mls/hr 08/09/17 00:00 08/09/17 12:58 Sodium Chloride 0.9% IV 80 mls/hr .[id number] LOLLY Administration Lidocaine HCl/Dextrose 2,000 mg in 500 mls @ 45 mls/hr 08/09/17 06:52 15:05 Lidocaine 2 Grams In D5w IV 2 mg/min .Q11H7M LOLLY 30 mls/hr Protocol Titration 3 MG/MIN Propofol 1,000 mg in 100 mls @ 26.25 mls/hr 08/09/17 17:45 Diprivan IV .Q3H49M PRN TITRATE PER MD ORDER Protocol 39.4 MCG/KG/MIN Rosuvastatin Calcium 20 mg 08/09/17 22:00 Crestor PO HS LOLLY - Patient Studies Lab Studies: Lab Studies 08/09/17 08/09/17 08/09/17 Range/Units 08:41 06:43 06:36 WBC 11.6 H (4.8-10.8) K/uL RBC 4.75 (4.40-5.90) Mil/uL Hgb 15.5 (12.0-18.0) g/dL Hct 46.5 (35.0-51.0) % MCV 97.7 H (80.0-94.0) fL MCH 32.6 H (27.0-31.0) pg MCHC 33.4 (33.0-37.0) g/dL RDW 13.5 (11.5-14.5) % Plt Count 213 (130-400) K/uL MPV 9.4 (7.2-11.7) fL Neut % (Auto) 84.4 H (50.0-75.0) % Lymph % (Auto) 7.9 L (20.0-40.0) % [place] % (Auto) 7.5 (0.0-10.0) % Eos % (Auto) 0.0 (0.0-4.0) % Baso % (Auto) 0.2 (0.0-2.0) % Neut # 9.8 H (1.8-7.0) K/uL Lymph # 0.9 L (1.0-4.3) K/uL [place] # 0.9 H (0.0-0.8) K/uL Eos # 0.0 (0.0-0.7) K/uL Baso # 0.0 (0.0-0.2) K/uL Neutrophils % (Manual) 82 H (50-75) % Band Neutrophils % 4 H (0-2) % Lymphocytes % (Manual) 8 L (20-40) % Reactive Lymphs % (0-0) % Monocytes % (Manual) 6 (0-10) % Toxic Granulation Platelet Estimate Normal (NORMAL) Large Platelets Present Giant Platelets Present RBC Morphology PT (9.7-12.2) SECONDS INR APTT (21-34) SECONDS Puncture Site pCO2 (35-45) mm/Hg pO2 (80-100) mm/Hg HCO3 (21-28) mmol/L ABG pH (7.35-7.45) ABG Total CO2 (22-28) mmol/L ABG O2 Saturation (95-98) % ABG Base Excess (-2.0-3.0) mmol/L ABG Hemoglobin (11.7-17.4) g/dL ABG Carboxyhemoglobin (0.5-1.5) % POC ABG HHb (Measured) (0.0-5.0) % ABG Methemoglobin (0.0-3.0) % Andres Test A-a O2 Difference mm/Hg Respiratory Index Hgb O2 Saturation (95.0-98.0) % Vent Mode Mechanical Rate FiO2 % Tidal Volume PEEP Sodium 137 (132-148) mmol/L Potassium 3.6 (3.6-5.2) mmol/L Chloride 106 (98-107) mmol/L Carbon Dioxide 18 L (22-30) mmol/L Anion Gap 17 (10-20) BUN 12 (9-20) mg/dL Creatinine 0.8 (0.8-1.5) mg/dL Est GFR ( Amer) > 60 Est GFR (Non-Af Amer) > 60 POC Glucose (mg/dL) (65-110) mg/dL Random Glucose 149 H (75-110) mg/dL Calcium 7.6 L (8.6-10.4) mg/dl Phosphorus 7.0 H (2.5-4.5) mg/dL Magnesium 2.0 (1.6-2.3) mg/dL Total Bilirubin 0.6 (0.2-1.3) mg/dL AST 60 H (17-59) U/L ALT 83 H (21-72) U/L Alkaline Phosphatase 75 (38-126) U/L Troponin I 0.9660 H* (0.00-0.120) ng/mL NT-Pro-B Natriuret Pep (0-900) pg/mL Total Protein 6.7 (6.3-8.3) g/dL Albumin 3.5 (3.5-5.0) g/dL Globulin 3.2 (2.2-3.9) gm/dL Albumin/Globulin Ratio 1.1 (1.0-2.1) Urine Color Yellow (YELLOW) Urine Clarity [place] (Clear) Urine pH 5.0 (5.0-8.0) Ur Specific [place] 1.031 H (1.003-1.030) Urine Protein 1+ H (NEGATIVE) mg/dL Urine Glucose (UA) Normal (Normal) mg/dL Urine Ketones Negative (NEGATIVE) mg/dL Urine Blood 2+ H (NEGATIVE) Urine Nitrate Negative (NEGATIVE) Urine Bilirubin Negative (NEGATIVE) Urine Urobilinogen Normal (0.2-1.0) mg/dL Ur Leukocyte Esterase 1+ H (Negative) Patricia/uL Urine WBC (Auto) 14 H (0-5) /hpf Urine RBC (Auto) 24 H (0-3) /hpf Urine Bacteria Rare (<OCC) Blood Type Antibody Screen 08/09/17 08/09/17 08/09/17 Range/Units 05:39 01:05 01:00 WBC (4.8-10.8) K/uL RBC (4.40-5.90) Mil/uL Hgb (12.0-18.0) g/dL Hct (35.0-51.0) % MCV (80.0-94.0) fL MCH (27.0-31.0) pg MCHC (33.0-37.0) g/dL RDW (11.5-14.5) % Plt Count (130-400) K/uL MPV (7.2-11.7) fL Neut % (Auto) (50.0-75.0) % Lymph % (Auto) (20.0-40.0) % [place] % (Auto) (0.0-10.0) % Eos % (Auto) (0.0-4.0) % Baso % (Auto) (0.0-2.0) % Neut # (1.8-7.0) K/uL Lymph # (1.0-4.3) K/uL [place] # (0.0-0.8) K/uL Eos # (0.0-0.7) K/uL Baso # (0.0-0.2) K/uL Neutrophils % (Manual) (50-75) % Band Neutrophils % (0-2) % Lymphocytes % (Manual) (20-40) % Reactive Lymphs % (0-0) % Monocytes % (Manual) (0-10) % Toxic Granulation Platelet Estimate (NORMAL) Large Platelets Giant Platelets RBC Morphology PT 11.5 (9.7-12.2) SECONDS INR 1.0 APTT 44 H D (21-34) SECONDS Puncture Site [place] pCO2 40 (35-45) mm/Hg pO2 179 H (80-100) mm/Hg HCO3 21.4 (21-28) mmol/L ABG pH 7.33 L (7.35-7.45) ABG Total CO2 22.3 (22-28) mmol/L ABG O2 Saturation 100.0 H (95-98) % ABG Base Excess -4.5 L (-2.0-3.0) mmol/L ABG Hemoglobin 15.3 (11.7-17.4) g/dL ABG Carboxyhemoglobin 1.8 H (0.5-1.5) % POC ABG HHb (Measured) 0.0 (0.0-5.0) % ABG Methemoglobin 0.9 (0.0-3.0) % Andres Test Na A-a O2 Difference 128.0 mm/Hg Respiratory Index 0.7 Hgb O2 Saturation 97.2 (95.0-98.0) % Vent Mode Prvc Mechanical Rate 12 FiO2 50.0 % Tidal Volume 500 PEEP 5 Sodium (132-148) mmol/L Potassium (3.6-5.2) mmol/L Chloride (98-107) mmol/L Carbon Dioxide (22-30) mmol/L Anion Gap (10-20) BUN (9-20) mg/dL Creatinine (0.8-1.5) mg/dL Est GFR ( Amer) Est GFR (Non-Af Amer) POC Glucose (mg/dL) (65-110) mg/dL Random Glucose (75-110) mg/dL Calcium (8.6-10.4) mg/dl Phosphorus (2.5-4.5) mg/dL Magnesium (1.6-2.3) mg/dL Total Bilirubin (0.2-1.3) mg/dL AST (17-59) U/L ALT (21-72) U/L Alkaline Phosphatase (38-126) U/L Troponin I (0.00-0.120) ng/mL NT-Pro-B Natriuret Pep (0-900) pg/mL Total Protein (6.3-8.3) g/dL Albumin (3.5-5.0) g/dL Globulin (2.2-3.9) gm/dL Albumin/Globulin Ratio (1.0-2.1) Urine Color (YELLOW) Urine Clarity (Clear) Urine pH (5.0-8.0) Ur Specific [place] (1.003-1.030) Urine Protein (NEGATIVE) mg/dL Urine Glucose (UA) (Normal) mg/dL Urine Ketones (NEGATIVE) mg/dL Urine Blood (NEGATIVE) Urine Nitrate (NEGATIVE) Urine Bilirubin (NEGATIVE) Urine Urobilinogen (0.2-1.0) mg/dL Ur Leukocyte Esterase (Negative) Patricia/uL Urine WBC (Auto) (0-5) /hpf Urine RBC (Auto) (0-3) /hpf Urine Bacteria (<OCC) Blood Type O POSITIVE Antibody Screen Negative 08/09/17 08/09/17 08/08/17 Range/Units 01:00 01:00 21:37 WBC 14.7 H (4.8-10.8) K/uL RBC 4.78 (4.40-5.90) Mil/uL Hgb 15.7 (12.0-18.0) g/dL Hct 46.6 (35.0-51.0) % MCV 97.6 H (80.0-94.0) fL MCH 32.8 H (27.0-31.0) pg MCHC 33.6 (33.0-37.0) g/dL RDW 13.9 (11.5-14.5) % Plt Count 209 (130-400) K/uL MPV 8.9 (7.2-11.7) fL Neut % (Auto) 91.0 H (50.0-75.0) % Lymph % (Auto) 3.7 L (20.0-40.0) % [place] % (Auto) 5.0 (0.0-10.0) % Eos % (Auto) 0.1 (0.0-4.0) % Baso % (Auto) 0.2 (0.0-2.0) % Neut # 13.4 H (1.8-7.0) K/uL Lymph # 0.5 L (1.0-4.3) K/uL [place] # 0.7 (0.0-0.8) K/uL Eos # 0.0 (0.0-0.7) K/uL Baso # 0.0 (0.0-0.2) K/uL Neutrophils % (Manual) 87 H (50-75) % Band Neutrophils % 1 (0-2) % Lymphocytes % (Manual) 5 L (20-40) % Reactive Lymphs % 2 H (0-0) % Monocytes % (Manual) 5 (0-10) % Toxic Granulation Present Platelet Estimate Normal (NORMAL) Large Platelets Giant Platelets RBC Morphology Normal PT (9.7-12.2) SECONDS INR APTT (21-34) SECONDS Puncture Site pCO2 (35-45) mm/Hg pO2 (80-100) mm/Hg HCO3 (21-28) mmol/L ABG pH (7.35-7.45) ABG Total CO2 (22-28) mmol/L ABG O2 Saturation (95-98) % ABG Base Excess (-2.0-3.0) mmol/L ABG Hemoglobin (11.7-17.4) g/dL ABG Carboxyhemoglobin (0.5-1.5) % POC ABG HHb (Measured) (0.0-5.0) % ABG Methemoglobin (0.0-3.0) % Andres Test A-a O2 Difference mm/Hg Respiratory Index Hgb O2 Saturation (95.0-98.0) % Vent Mode Mechanical Rate FiO2 % Tidal Volume PEEP Sodium 134 136 (132-148) mmol/L Potassium 4.1 3.4 L (3.6-5.2) mmol/L Chloride 103 102 (98-107) mmol/L Carbon Dioxide 19 L 20 L (22-30) mmol/L Anion Gap 16 17 (10-20) BUN 13 14 (9-20) mg/dL Creatinine 0.8 1.0 (0.8-1.5) mg/dL Est GFR ( Amer) > 60 > 60 Est GFR (Non-Af Amer) > 60 > 60 POC Glucose (mg/dL) (65-110) mg/dL Random Glucose 192 H 121 H (75-110) mg/dL Calcium 8.2 L 9.0 (8.6-10.4) mg/dl Phosphorus 3.7 (2.5-4.5) mg/dL Magnesium 2.3 (1.6-2.3) mg/dL Total Bilirubin 1.0 1.0 (0.2-1.3) mg/dL AST 71 H D 57 (17-59) U/L ALT 94 H D 69 (21-72) U/L Alkaline Phosphatase 107 95 (38-126) U/L Troponin I 1.1100 H* (0.00-0.120) ng/mL NT-Pro-B Natriuret Pep 57.4 (0-900) pg/mL Total Protein 6.3 7.0 (6.3-8.3) g/dL Albumin 4.0 4.5 (3.5-5.0) g/dL Globulin 2.3 2.6 (2.2-3.9) gm/dL Albumin/Globulin Ratio 1.8 1.7 (1.0-2.1) Urine Color (YELLOW) Urine Clarity (Clear) Urine pH (5.0-8.0) Ur Specific [place] (1.003-1.030) Urine Protein (NEGATIVE) mg/dL Urine Glucose (UA) (Normal) mg/dL Urine Ketones (NEGATIVE) mg/dL Urine Blood (NEGATIVE) Urine Nitrate (NEGATIVE) Urine Bilirubin (NEGATIVE) Urine Urobilinogen (0.2-1.0) mg/dL Ur Leukocyte Esterase (Negative) Patricia/uL Urine WBC (Auto) (0-5) /hpf Urine RBC (Auto) (0-3) /hpf Urine Bacteria (<OCC) Blood Type Antibody Screen 08/08/17 08/08/17 08/08/17 Range/Units 21:37 21:37 21:35 WBC 9.9 (4.8-10.8) K/uL RBC 5.24 (4.40-5.90) Mil/uL Hgb 16.9 (12.0-18.0) g/dL Hct 51.3 H (35.0-51.0) % MCV 98.0 H (80.0-94.0) fL MCH 32.3 H (27.0-31.0) pg MCHC 33.0 (33.0-37.0) g/dL RDW 13.9 (11.5-14.5) % Plt Count 224 (130-400) K/uL MPV 8.8 (7.2-11.7) fL Neut % (Auto) 46.8 L (50.0-75.0) % Lymph % (Auto) 39.8 (20.0-40.0) % [place] % (Auto) 11.3 H (0.0-10.0) % Eos % (Auto) 1.3 (0.0-4.0) % Baso % (Auto) 0.8 (0.0-2.0) % Neut # 4.6 (1.8-7.0) K/uL Lymph # 3.9 (1.0-4.3) K/uL [place] # 1.1 H (0.0-0.8) K/uL Eos # 0.1 (0.0-0.7) K/uL Baso # 0.1 (0.0-0.2) K/uL Neutrophils % (Manual) (50-75) % Band Neutrophils % (0-2) % Lymphocytes % (Manual) (20-40) % Reactive Lymphs % (0-0) % Monocytes % (Manual) (0-10) % Toxic Granulation Platelet Estimate (NORMAL) Large Platelets Giant Platelets RBC Morphology PT 12.1 (9.7-12.2) SECONDS INR 1.1 APTT 27 (21-34) SECONDS Puncture Site pCO2 (35-45) mm/Hg pO2 (80-100) mm/Hg HCO3 (21-28) mmol/L ABG pH (7.35-7.45) ABG Total CO2 (22-28) mmol/L ABG O2 Saturation (95-98) % ABG Base Excess (-2.0-3.0) mmol/L ABG Hemoglobin (11.7-17.4) g/dL ABG Carboxyhemoglobin (0.5-1.5) % POC ABG HHb (Measured) (0.0-5.0) % ABG Methemoglobin (0.0-3.0) % Andres Test A-a O2 Difference mm/Hg Respiratory Index Hgb O2 Saturation (95.0-98.0) % Vent Mode Mechanical Rate FiO2 % Tidal Volume PEEP Sodium (132-148) mmol/L Potassium (3.6-5.2) mmol/L Chloride (98-107) mmol/L Carbon Dioxide (22-30) mmol/L Anion Gap (10-20) BUN (9-20) mg/dL Creatinine (0.8-1.5) mg/dL Est GFR ( Amer) Est GFR (Non-Af Amer) POC Glucose (mg/dL) 149 H (65-110) mg/dL Random Glucose (75-110) mg/dL Calcium (8.6-10.4) mg/dl Phosphorus (2.5-4.5) mg/dL Magnesium (1.6-2.3) mg/dL Total Bilirubin (0.2-1.3) mg/dL AST (17-59) U/L ALT (21-72) U/L Alkaline Phosphatase (38-126) U/L Troponin I (0.00-0.120) ng/mL NT-Pro-B Natriuret Pep (0-900) pg/mL Total Protein (6.3-8.3) g/dL Albumin (3.5-5.0) g/dL Globulin (2.2-3.9) gm/dL Albumin/Globulin Ratio (1.0-2.1) Urine Color (YELLOW) Urine Clarity (Clear) Urine pH (5.0-8.0) Ur Specific [place] (1.003-1.030) Urine Protein (NEGATIVE) mg/dL Urine Glucose (UA) (Normal) mg/dL Urine Ketones (NEGATIVE) mg/dL Urine Blood (NEGATIVE) Urine Nitrate (NEGATIVE) Urine Bilirubin (NEGATIVE) Urine Urobilinogen (0.2-1.0) mg/dL Ur Leukocyte Esterase (Negative) Patricia/uL Urine WBC (Auto) (0-5) /hpf Urine RBC (Auto) (0-3) /hpf Urine Bacteria (<OCC) Blood Type Antibody Screen Laboratory Results - last 24 hr 08/08/17 08/08/17 08/08/17 21:35 21:37 21:37 WBC 9.9 RBC 5.24 Hgb 16.9 Hct 51.3 H MCV 98.0 H MCH 32.3 H MCHC 33.0 RDW 13.9 Plt Count 224 MPV 8.8 Neut % (Auto) 46.8 L Lymph % (Auto) 39.8 [place] % (Auto) 11.3 H Eos % (Auto) 1.3 Baso % (Auto) 0.8 Neut # 4.6 Lymph # 3.9 [place] # 1.1 H Eos # 0.1 Baso # 0.1 Neutrophils % (Manual) Band Neutrophils % Lymphocytes % (Manual) Reactive Lymphs % Monocytes % (Manual) Toxic Granulation Platelet Estimate Large Platelets Giant Platelets RBC Morphology PT 12.1 INR 1.1 APTT 27 Puncture Site pCO2 pO2 HCO3 ABG pH ABG Total CO2 ABG O2 Saturation ABG Base Excess ABG Hemoglobin ABG Carboxyhemoglobin POC ABG HHb (Measured) ABG Methemoglobin Andres Test A-a O2 Difference Respiratory Index Hgb O2 Saturation Vent Mode Mechanical Rate FiO2 Tidal Volume PEEP Sodium Potassium Chloride Carbon Dioxide Anion Gap BUN Creatinine Est GFR ( Amer) Est GFR (Non-Af Amer) POC Glucose (mg/dL) 149 H Random Glucose Calcium Phosphorus Magnesium Total Bilirubin AST ALT Alkaline Phosphatase Troponin I NT-Pro-B Natriuret Pep Total Protein Albumin Globulin Albumin/Globulin Ratio Urine Color Urine Clarity Urine pH Ur Specific [place] Urine Protein Urine Glucose (UA) Urine Ketones Urine Blood Urine Nitrate Urine Bilirubin Urine Urobilinogen Ur Leukocyte Esterase Urine WBC (Auto) Urine RBC (Auto) Urine Bacteria Blood Type Antibody Screen 08/08/17 08/09/17 08/09/17 21:37 01:00 01:00 WBC 14.7 H RBC 4.78 Hgb 15.7 Hct 46.6 MCV 97.6 H MCH 32.8 H MCHC 33.6 RDW 13.9 Plt Count 209 MPV 8.9 Neut % (Auto) 91.0 H Lymph % (Auto) 3.7 L [place] % (Auto) 5.0 Eos % (Auto) 0.1 Baso % (Auto) 0.2 Neut # 13.4 H Lymph # 0.5 L [place] # 0.7 Eos # 0.0 Baso # 0.0 Neutrophils % (Manual) 87 H Band Neutrophils % 1 Lymphocytes % (Manual) 5 L Reactive Lymphs % 2 H Monocytes % (Manual) 5 Toxic Granulation Present Platelet Estimate Normal Large Platelets Giant Platelets RBC Morphology Normal PT INR APTT Puncture Site pCO2 pO2 HCO3 ABG pH ABG Total CO2 ABG O2 Saturation ABG Base Excess ABG Hemoglobin ABG Carboxyhemoglobin POC ABG HHb (Measured) ABG Methemoglobin Andres Test A-a O2 Difference Respiratory Index Hgb O2 Saturation Vent Mode Mechanical Rate FiO2 Tidal Volume PEEP Sodium 136 134 Potassium 3.4 L 4.1 Chloride 102 103 Carbon Dioxide 20 L 19 L Anion Gap 17 16 BUN 14 13 Creatinine 1.0 0.8 Est GFR ( Amer) > 60 > 60 Est GFR (Non-Af Amer) > 60 > 60 POC Glucose (mg/dL) Random Glucose 121 H 192 H Calcium 9.0 8.2 L Phosphorus 3.7 Magnesium 2.3 Total Bilirubin 1.0 1.0 AST 57 71 H D ALT 69 94 H D Alkaline Phosphatase 95 107 Troponin I 1.1100 H* NT-Pro-B Natriuret Pep 57.4 Total Protein 7.0 6.3 Albumin 4.5 4.0 Globulin 2.6 2.3 Albumin/Globulin Ratio 1.7 1.8 Urine Color Urine Clarity Urine pH Ur Specific [place] Urine Protein Urine Glucose (UA) Urine Ketones Urine Blood Urine Nitrate Urine Bilirubin Urine Urobilinogen Ur Leukocyte Esterase Urine WBC (Auto) Urine RBC (Auto) Urine Bacteria Blood Type Antibody Screen 08/09/17 08/09/17 08/09/17 01:00 01:05 05:39 WBC RBC Hgb Hct MCV MCH MCHC RDW Plt Count MPV Neut % (Auto) Lymph % (Auto) [place] % (Auto) Eos % (Auto) Baso % (Auto) Neut # Lymph # [place] # Eos # Baso # Neutrophils % (Manual) Band Neutrophils % Lymphocytes % (Manual) Reactive Lymphs % Monocytes % (Manual) Toxic Granulation Platelet Estimate Large Platelets Giant Platelets RBC Morphology PT 11.5 INR 1.0 APTT 44 H D Puncture Site [place] pCO2 40 pO2 179 H HCO3 21.4 ABG pH 7.33 L ABG Total CO2 22.3 ABG O2 Saturation 100.0 H ABG Base Excess -4.5 L ABG Hemoglobin 15.3 ABG Carboxyhemoglobin 1.8 H POC ABG HHb (Measured) 0.0 ABG Methemoglobin 0.9 Andres Test Na A-a O2 Difference 128.0 Respiratory Index 0.7 Hgb O2 Saturation 97.2 Vent Mode Prvc Mechanical Rate 12 FiO2 50.0 Tidal Volume 500 PEEP 5 Sodium Potassium Chloride Carbon Dioxide Anion Gap BUN Creatinine Est GFR ( Amer) Est GFR (Non-Af Amer) POC Glucose (mg/dL) Random Glucose Calcium Phosphorus Magnesium Total Bilirubin AST ALT Alkaline Phosphatase Troponin I NT-Pro-B Natriuret Pep Total Protein Albumin Globulin Albumin/Globulin Ratio Urine Color Urine Clarity Urine pH Ur Specific [place] Urine Protein Urine Glucose (UA) Urine Ketones Urine Blood Urine Nitrate Urine Bilirubin Urine Urobilinogen Ur Leukocyte Esterase Urine WBC (Auto) Urine RBC (Auto) Urine Bacteria Blood Type O POSITIVE Antibody Screen Negative 08/09/17 08/09/17 08/09/17 06:36 06:43 08:41 WBC 11.6 H RBC 4.75 Hgb 15.5 Hct 46.5 MCV 97.7 H MCH 32.6 H MCHC 33.4 RDW 13.5 Plt Count 213 MPV 9.4 Neut % (Auto) 84.4 H Lymph % (Auto) 7.9 L [place] % (Auto) 7.5 Eos % (Auto) 0.0 Baso % (Auto) 0.2 Neut # 9.8 H Lymph # 0.9 L [place] # 0.9 H Eos # 0.0 Baso # 0.0 Neutrophils % (Manual) 82 H Band Neutrophils % 4 H Lymphocytes % (Manual) 8 L Reactive Lymphs % Monocytes % (Manual) 6 Toxic Granulation Platelet Estimate Normal Large Platelets Present Giant Platelets Present RBC Morphology PT INR APTT Puncture Site pCO2 pO2 HCO3 ABG pH ABG Total CO2 ABG O2 Saturation ABG Base Excess ABG Hemoglobin ABG Carboxyhemoglobin POC ABG HHb (Measured) ABG Methemoglobin Andres Test A-a O2 Difference Respiratory Index Hgb O2 Saturation Vent Mode Mechanical Rate FiO2 Tidal Volume PEEP Sodium 137 Potassium 3.6 Chloride 106 Carbon Dioxide 18 L Anion Gap 17 BUN 12 Creatinine 0.8 Est GFR ( Amer) > 60 Est GFR (Non-Af Amer) > 60 POC Glucose (mg/dL) Random Glucose 149 H Calcium 7.6 L Phosphorus 7.0 H Magnesium 2.0 Total Bilirubin 0.6 AST 60 H ALT 83 H Alkaline Phosphatase 75 Troponin I 0.9660 H* NT-Pro-B Natriuret Pep Total Protein 6.7 Albumin 3.5 Globulin 3.2 Albumin/Globulin Ratio 1.1 Urine Color Yellow Urine Clarity [place] Urine pH 5.0 Ur Specific [place] 1.031 H Urine Protein 1+ H Urine Glucose (UA) Normal Urine Ketones Negative Urine Blood 2+ H Urine Nitrate Negative Urine Bilirubin Negative Urine Urobilinogen Normal Ur Leukocyte Esterase 1+ H Urine WBC (Auto) 14 H Urine RBC (Auto) 24 H Urine Bacteria Rare Blood Type Antibody Screen EKG/Cardiology Studies: Cardiology / EKG Studies 08/08/17 21:29 ELECTROCARDIOGRAM Stat Comment: Mode Of Transportation: BED Reason For Exam: SOB 08/09/17 00:22 EKG [ELECTROCARDIOGRAM] Stat Comment: Mode Of Transportation: PORTABLE Reason For Exam: vfib Attending/Attestation - Attestation I have personally seen and examined this patient.: Yes I have fully participated in the care of the patient.: Yes I have reviewed all pertinent clinical information: Yes Notes (Text): 08/09/17 18:36 Patient seen and examined in the intensive care unit. Case discussed with house staff in the morning rounds. Patient remains intubated on ventilatory support Sedated on propofol drip On amiodarone and lidocaine drip later amiodarone. discontinued By EPS Arrhythmia consistent with ventricular fibrillation Continue present treatment for now Taper off Levophed weaning from tomorrow Reduce lidocaine drip as tolerated
[2017-08-09 08:37] LABS: TOTAL CELLS COUNTED 100
[2017-08-09 08:38] LABS: GIANT PLATELETS PRESENT; LARGE PLATELETS PRESENT; NEUTROPHIL 82 % (50-75)
--- NOTE | 2017-08-09 08:38 | RAD ---
PROCEDURE: CHEST RADIOGRAPH, 1 VIEW HISTORY: post intubation COMPARISON: 08/08/2017 FINDINGS: LUNGS: Endotracheal tube extending into the mid thoracic trachea. Biapical pleural thickening with upper lobe granulomatous changes. Diffuse increased interstitial lung markings. Patchy increased markings at the left lung base with trace left pleural effusion. Bilateral hilar prominence. PLEURA: No pneumothorax or pleural fluid seen. CARDIOVASCULAR: Cardiomegaly. Enlarged ectatic aorta. OSSEOUS STRUCTURES: Degenerative changes in the spine and shoulders. VISUALIZED UPPER ABDOMEN: Normal. OTHER FINDINGS: None. IMPRESSION: Endotracheal tube extending into the mid thoracic trachea. Biapical pleural thickening with upper lobe granulomatous changes. Diffuse increased interstitial lung markings. Patchy increased markings at the left lung base with trace left pleural effusion. Bilateral hilar prominence.
[2017-08-09 09:05] LABS: RBC URINE 24 /hpf (0-3); URINE BACTERIA RARE (<OCC); URINE BILIRUBIN NEGATIVE (NEGATIVE); URINE BLOOD 2+ (NEGATIVE); URINE COLOR Yellow (YELLOW); URINE GLUCOSE (UA) NORMAL (Normal); URINE KETONE NEGATIVE (NEGATIVE); URINE LEUKOCYTE ESTERASE 1+ Leu/uL (Negative); URINE PROTEIN 1+ mg/dL (NEGATIVE); URINE UROBILINOGEN NORMAL mg/dL (0.2-1.0); WBC URINE 14 /hpf (0-5)
[2017-08-09] MEDS: Sodium Chloride 0.9% 500 ML IV SCH ×5 (09:33→17:40)
--- NOTE | 2017-08-09 10:09 | CP.PCM.CON ---
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; was transferred to the ICU post cardiac cath on a temporary transvenous pacemaker amiodarone and lidocaine He had an unremarkable left circumflex coronary artery stent at [facility] [facility] yesterday and discharged to home Currently intubated; history corroborated from patients at bedside Past Patient History - Past Medical History & Family History Past Medical History?: Yes - Past Social History Smoking Status: Unknown If Ever Smoked - CARDIAC Hx Hypertension: Yes - PULMONARY Hx Respiratory Disorders: No - NEUROLOGICAL Hx Neurological Disorder: No - HEENT Hx HEENT Problems: No - RENAL Hx Chronic Kidney Disease: No - ENDOCRINE/METABOLIC Hx Endocrine Disorders: Yes Hx Diabetes Mellitus Type 2: Yes - HEMATOLOGICAL/ONCOLOGICAL Hx Blood Disorders: No - INTEGUMENTARY Hx Dermatological Problems: No - MUSCULOSKELETAL/RHEUMATOLOGICAL Hx Musculoskeletal Disorders: No - GASTROINTESTINAL Hx Gastrointestinal Disorders: Yes - GENITOURINARY/GYNECOLOGICAL Hx Genitourinary Disorders: No - PSYCHIATRIC Hx Substance Use: No - SURGICAL HISTORY Hx Coronary Stent: Yes - ANESTHESIA Hx Anesthesia: Yes Meds Allergies/Adverse Reactions: Allergies Allergy/AdvReac Type Severity Reaction Status Date / Time No Known Allergies Allergy Verified 08/08/17 21:43 - Medications Medications: Current Medications Aspirin (Ecotrin) 81 mg PO DAILY [facility] Last Admin: 08/09/17 09:37 Dose: 81 mg Clopidogrel Bisulfate (Plavix) 75 mg PO DAILY [facility] Last Admin: 08/09/17 09:37 Dose: 75 mg Famotidine (Pepcid) 20 mg IVP Q12 [facility] Last Admin: 08/09/17 09:36 Dose: 20 mg Heparin Sodium (Porcine) (Heparin) 5,000 units SC Q8 [facility] Last Admin: 08/09/17 05:41 Dose: 5,000 units Propofol (Diprivan) 1,000 mg in 100 mls @ 3.266 mls/hr IV .Q24H PRN; Protocol; 5 MCG/KG/MIN PRN Reason: sedation Last Admin: 08/09/17 09:54 Dose: 40.11 mcg/kg/min, 26.2 mls/hr Norepinephrine Bitartrate 16 (mg/ Dextrose) 516 mls @ 7.74 mls/hr IV .Q24H PRN ; Protocol; 4 MCG/MIN PRN Reason: TITRATE PER MD ORDER Last Titration: 08/09/17 09:50 Dose: 3.87 mcg/min, 7.5 mls/hr Sodium Chloride (Sodium Chloride 0.9%) 1,000 mls @ 80 mls/hr IV .[id number] [facility] Last Admin: 08/09/17 00:00 Dose: 80 mls/hr Lidocaine HCl/Dextrose (Lidocaine 2 Grams In D5w) 2,000 mg in 500 mls @ 45 mls/ hr IV .Q11H7M LOLLY; 3 MG/MIN PRN Reason: Protocol Last Admin: 08/09/17 09:52 Dose: 3 mg/min, 45 mls/hr Potassium Chloride (Potassium Chloride 20 Meq/100 Ml) 20 meq in 100 mls @ 50 mls/hr IVPB ONCE ONE Stop: 08/09/17 11:19 Last Admin: 08/09/17 09:36 Dose: 50 mls/hr Sodium Chloride (Sodium Chloride 0.9%) 500 mls @ 1,000 mls/hr IV .Q30M [facility] Last Admin: 08/09/17 09:33 Dose: 1,000 mls/hr Propofol (Diprivan) 100 mg IV TITR LOLLY Propofol (Diprivan) 100 mg IV TITR LOLLY Rosuvastatin Calcium (Crestor) 20 mg PO HS LO[facility] Results - Vital Signs Recent Vital Signs: Last Vital Signs Temp 97.5 F L 08/09/17 08:00 Pulse 90 08/09/17 08:22 Resp 14 08/09/17 08:22 BP 96/69 L 08/09/17 08:23 Pulse Ox 100 08/09/17 08:22 - Labs Result Diagrams: 08/09/17 06:43 08/09/17 06:36 Labs: Laboratory Results - last 24 hr 08/08/17 08/08/17 08/08/17 21:35 21:37 21:37 WBC 9.9 RBC 5.24 Hgb 16.9 Hct 51.3 H MCV 98.0 H MCH 32.3 H MCHC 33.0 RDW 13.9 Plt Count 224 MPV 8.8 Neut % (Auto) 46.8 L Lymph % (Auto) 39.8 Starr % (Auto) 11.3 H Eos % (Auto) 1.3 Baso % (Auto) 0.8 Neut # 4.6 Lymph # 3.9 Starr # 1.1 H Eos # 0.1 Baso # 0.1 Neutrophils % (Manual) Band Neutrophils % Lymphocytes % (Manual) Reactive Lymphs % Monocytes % (Manual) Toxic Granulation Platelet Estimate Large Platelets Giant Platelets RBC Morphology PT 12.1 INR 1.1 APTT 27 Puncture Site pCO2 pO2 HCO3 ABG pH ABG Total CO2 ABG O2 Saturation ABG Base Excess ABG Hemoglobin ABG Carboxyhemoglobin POC ABG HHb (Measured) ABG Methemoglobin Andres Test A-a O2 Difference Respiratory Index Hgb O2 Saturation Vent Mode Mechanical Rate FiO2 Tidal Volume PEEP Sodium Potassium Chloride Carbon Dioxide Anion Gap BUN Creatinine Est GFR ( Amer) Est GFR (Non-Af Amer) POC Glucose (mg/dL) 149 H Random Glucose Calcium Phosphorus Magnesium Total Bilirubin AST ALT Alkaline Phosphatase Troponin I NT-Pro-B Natriuret Pep Total Protein Albumin Globulin Albumin/Globulin Ratio Urine Color Urine Clarity Urine pH Ur Specific [place] Urine Protein Urine Glucose (UA) Urine Ketones Urine Blood Urine Nitrate Urine Bilirubin Urine Urobilinogen Ur Leukocyte Esterase Urine WBC (Auto) Urine RBC (Auto) Urine Bacteria Blood Type Antibody Screen 08/08/17 08/09/17 08/09/17 21:37 01:00 01:00 WBC 14.7 H RBC 4.78 Hgb 15.7 Hct 46.6 MCV 97.6 H MCH 32.8 H MCHC 33.6 RDW 13.9 Plt Count 209 MPV 8.9 Neut % (Auto) 91.0 H Lymph % (Auto) 3.7 L Starr % (Auto) 5.0 Eos % (Auto) 0.1 Baso % (Auto) 0.2 Neut # 13.4 H Lymph # 0.5 L Starr # 0.7 Eos # 0.0 Baso # 0.0 Neutrophils % (Manual) 87 H Band Neutrophils % 1 Lymphocytes % (Manual) 5 L Reactive Lymphs % 2 H Monocytes % (Manual) 5 Toxic Granulation Present Platelet Estimate Normal Large Platelets Giant Platelets RBC Morphology Normal PT INR APTT Puncture Site pCO2 pO2 HCO3 ABG pH ABG Total CO2 ABG O2 Saturation ABG Base Excess ABG Hemoglobin ABG Carboxyhemoglobin POC ABG HHb (Measured) ABG Methemoglobin Andres Test A-a O2 Difference Respiratory Index Hgb O2 Saturation Vent Mode Mechanical Rate FiO2 Tidal Volume PEEP Sodium 136 134 Potassium 3.4 L 4.1 Chloride 102 103 Carbon Dioxide 20 L 19 L Anion Gap 17 16 BUN 14 13 Creatinine 1.0 0.8 Est GFR ( Amer) > 60 > 60 Est GFR (Non-Af Amer) > 60 > 60 POC Glucose (mg/dL) Random Glucose 121 H 192 H Calcium 9.0 8.2 L Phosphorus 3.7 Magnesium 2.3 Total Bilirubin 1.0 1.0 AST 57 71 H D ALT 69 94 H D Alkaline Phosphatase 95 107 Troponin I 1.1100 H* NT-Pro-B Natriuret Pep 57.4 Total Protein 7.0 6.3 Albumin 4.5 4.0 Globulin 2.6 2.3 Albumin/Globulin Ratio 1.7 1.8 Urine Color Urine Clarity Urine pH Ur Specific [place] Urine Protein Urine Glucose (UA) Urine Ketones Urine Blood Urine Nitrate Urine Bilirubin Urine Urobilinogen Ur Leukocyte Esterase Urine WBC (Auto) Urine RBC (Auto) Urine Bacteria Blood Type Antibody Screen 08/09/17 08/09/17 08/09/17 01:00 01:05 05:39 WBC RBC Hgb Hct MCV MCH MCHC RDW Plt Count MPV Neut % (Auto) Lymph % (Auto) Starr % (Auto) Eos % (Auto) Baso % (Auto) Neut # Lymph # Starr # Eos # Baso # Neutrophils % (Manual) Band Neutrophils % Lymphocytes % (Manual) Reactive Lymphs % Monocytes % (Manual) Toxic Granulation Platelet Estimate Large Platelets Giant Platelets RBC Morphology PT 11.5 INR 1.0 APTT 44 H D Puncture Site [place] pCO2 40 pO2 179 H HCO3 21.4 ABG pH 7.33 L ABG Total CO2 22.3 ABG O2 Saturation 100.0 H ABG Base Excess -4.5 L ABG Hemoglobin 15.3 ABG Carboxyhemoglobin 1.8 H POC ABG HHb (Measured) 0.0 ABG Methemoglobin 0.9 Andres Test Na A-a O2 Difference 128.0 Respiratory Index 0.7 Hgb O2 Saturation 97.2 Vent Mode Prvc Mechanical Rate 12 FiO2 50.0 Tidal Volume 500 PEEP 5 Sodium Potassium Chloride Carbon Dioxide Anion Gap BUN Creatinine Est GFR ( Amer) Est GFR (Non-Af Amer) POC Glucose (mg/dL) Random Glucose Calcium Phosphorus Magnesium Total Bilirubin AST ALT Alkaline Phosphatase Troponin I NT-Pro-B Natriuret Pep Total Protein Albumin Globulin Albumin/Globulin Ratio Urine Color Urine Clarity Urine pH Ur Specific [place] Urine Protein Urine Glucose (UA) Urine Ketones Urine Blood Urine Nitrate Urine Bilirubin Urine Urobilinogen Ur Leukocyte Esterase Urine WBC (Auto) Urine RBC (Auto) Urine Bacteria Blood Type O POSITIVE Antibody Screen Negative 08/09/17 08/09/17 08/09/17 06:36 06:43 08:41 WBC 11.6 H RBC 4.75 Hgb 15.5 Hct 46.5 MCV 97.7 H MCH 32.6 H MCHC 33.4 RDW 13.5 Plt Count 213 MPV 9.4 Neut % (Auto) 84.4 H Lymph % (Auto) 7.9 L Starr % (Auto) 7.5 Eos % (Auto) 0.0 Baso % (Auto) 0.2 Neut # 9.8 H Lymph # 0.9 L Starr # 0.9 H Eos # 0.0 Baso # 0.0 Neutrophils % (Manual) 82 H Band Neutrophils % 4 H Lymphocytes % (Manual) 8 L Reactive Lymphs % Monocytes % (Manual) 6 Toxic Granulation Platelet Estimate Normal Large Platelets Present Giant Platelets Present RBC Morphology PT INR APTT Puncture Site pCO2 pO2 HCO3 ABG pH ABG Total CO2 ABG O2 Saturation ABG Base Excess ABG Hemoglobin ABG Carboxyhemoglobin POC ABG HHb (Measured) ABG Methemoglobin Andres Test A-a O2 Difference Respiratory Index Hgb O2 Saturation Vent Mode Mechanical Rate FiO2 Tidal Volume PEEP Sodium 137 Potassium 3.6 Chloride 106 Carbon Dioxide 18 L Anion Gap 17 BUN 12 Creatinine 0.8 Est GFR ( Amer) > 60 Est GFR (Non-Af Amer) > 60 POC Glucose (mg/dL) Random Glucose 149 H Calcium 7.6 L Phosphorus 7.0 H Magnesium 2.0 Total Bilirubin 0.6 AST 60 H ALT 83 H Alkaline Phosphatase 75 Troponin I 0.9660 H* NT-Pro-B Natriuret Pep Total Protein 6.7 Albumin 3.5 Globulin 3.2 Albumin/Globulin Ratio 1.1 Urine Color Yellow Urine Clarity [place] Urine pH 5.0 Ur Specific [place] 1.031 H Urine Protein 1+ H Urine Glucose (UA) Normal Urine Ketones Negative Urine Blood 2+ H Urine Nitrate Negative Urine Bilirubin Negative Urine Urobilinogen Normal Ur Leukocyte Esterase 1+ H Urine WBC (Auto) 14 H Urine RBC (Auto) 24 H Urine Bacteria Rare Blood Type Antibody Screen Assessment & Plan - Assessment and Plan (Free Text) Assessment: Mr. Rodriguez presented with unstable tachy-arrhythmias after an unremarkable percutaneous intervention of the left circumflex. The identity of the initiating arrhythmia is difficult to ascertain in absence of documentation; assuming a polymorphic tachycardia, its unlikely to be ' tporsade given normal Qtc intervals; the subsequent events at the hospital for which documentation is available is ventricular fibrillation. In absence of myocardial ischemia and seemingly preserved LV systolic function the trigger and the supportive substrate for the arrhythmia is not obvious; there is no evidence or suggestion of "myocarditis' or a stress cardiomyopathy , toxin drugs or electrolytes or a primary electrical abnormality (brugada etc) Diagnostic options include an MRI of the heart Regardless if neurological function is not a concern he should be considered for an ICD; in the interim would continue with lidocaine, wean him off the transvenous pacing support and obtain an echocardiogram amiodarone has been used with polymorphic VT but is contraindicated with ' torsade'; given difficulty in obtaining the initiating arrhythmia would defer its use for now. Plan: as above
--- NOTE | 2017-08-09 12:54 | CP.PCM.PN ---
Subjective - Date & Time of Evaluation Date of Evaluation: 08/09/17 Time of Evaluation: 12:53 - Subjective Subjective: Sedated on MV Discussed with her daughter Andria at bedside and spoke to G Paul Guerrero Objective - Vital Signs/Intake and Output Vital Signs (last 24 hours): Temp Pulse Resp BP Pulse Ox 97.5 F L 90 14 90/59 L 100 08/09/17 08:00 08/09/17 12:40 08/09/17 12:40 08/09/17 12:22 08/09/17 12:40 Intake and Output: 08/09/17 08/09/17 06:59 18:59 Intake Total 1381.8 1516.8 Output Total 3400 255 Balance -2018.2 1261.8 - Medications Medications: Current Medications Aspirin (Ecotrin) 81 mg PO DAILY [facility] Last Admin: 08/09/17 09:37 Dose: 81 mg Clopidogrel Bisulfate (Plavix) 75 mg PO DAILY [facility] Last Admin: 08/09/17 09:37 Dose: 75 mg Famotidine (Pepcid) 20 mg IVP Q12 [facility] Last Admin: 08/09/17 09:36 Dose: 20 mg Heparin Sodium (Porcine) (Heparin) 5,000 units SC Q8 [facility] Last Admin: 08/09/17 05:41 Dose: 5,000 units Propofol (Diprivan) 1,000 mg in 100 mls @ 3.266 mls/hr IV .Q24H PRN; Protocol; 5 MCG/KG/MIN PRN Reason: sedation Last Admin: 08/09/17 09:54 Dose: 40.11 mcg/kg/min, 26.2 mls/hr Norepinephrine Bitartrate 16 (mg/ Dextrose) 516 mls @ 7.74 mls/hr IV .Q24H PRN ; Protocol; 4 MCG/MIN PRN Reason: TITRATE PER MD ORDER Last Titration: 08/09/17 11:00 Dose: 2.89 mcg/min, 5.6 mls/hr Sodium Chloride (Sodium Chloride 0.9%) 1,000 mls @ 80 mls/hr IV .[id number] [facility] Last Admin: 08/09/17 00:00 Dose: 80 mls/hr Lidocaine HCl/Dextrose (Lidocaine 2 Grams In D5w) 2,000 mg in 500 mls @ 45 mls/ hr IV .Q11H7M LOLLY; 3 MG/MIN PRN Reason: Protocol Last Admin: 08/09/17 09:52 Dose: 3 mg/min, 45 mls/hr Sodium Chloride (Sodium Chloride 0.9%) 500 mls @ 1,000 mls/hr IV .Q30M [facility] Last Admin: 08/09/17 09:33 Dose: 1,000 mls/hr Potassium Chloride (Potassium Chloride 20 Meq/100 Ml) 20 meq in 100 mls @ 50 mls/hr IVPB ONCE ONE Stop: 08/09/17 14:14 Propofol (Diprivan) 100 mg IV TITR LOLLY Propofol (Diprivan) 100 mg IV TITR [facility] Rosuvastatin Calcium (Crestor) 20 mg PO HS LOLLY - Labs Labs: 08/09/17 06:43 08/09/17 06:36 PT 11.5 SECONDS (9.7-12.2) 08/09/17 01:00 INR 1.0 08/09/17 01:00 APTT 44 SECONDS (21-34) H D 08/09/17 01:00 - Constitutional Appears: No Acute Distress - Head Exam Head Exam: ATRAUMATIC - Eye Exam Eye Exam: Normal appearance - ENT Exam ENT Exam: Mucous Membranes Moist - Neck Exam Neck Exam: absent: Full ROM (intubated) - Respiratory Exam Respiratory Exam: Clear to Ausculation Bilateral, NORMAL BREATHING PATTERN - Cardiovascular Exam Cardiovascular Exam: REGULAR RHYTHM - GI/Abdominal Exam GI & Abdominal Exam: Soft, Normal Bowel Sounds - Exam External exam: NORMAL EXTERNAL EXAM - Extremities Exam Extremities Exam: Normal Inspection - Neurological Exam Neurological Exam: absent: Alert - Psychiatric Exam Psychiatric exam: absent: Normal Mood - Skin Skin Exam: Dry Assessment and Plan - Assessment and Plan (Free Text) Assessment: This is a 76 years old male with history of hypertension who had Cardiac Cath & PCI with MIRTA to Cx yesterday at [facility] with Dr. Velez was brought in by BLS after having LOS and arrhythmia. Patient shocked twice and returned to rhythm. Patient given Mg and started on Amiodarone, but had recurrent VF arrythmia without pulse requiring defibrillation. Patient intubated in ED and Code Heart activated. Patient sent [facility] programmer and started on Levophed. Patient found to have patent stent . Patient had another ventricular arrythmia requiring multiple defibrillation and code blue called. Patient started on Lidocaine Plan: 1. 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 CAD,s/p stent continue asprin,plavix and crestor 4 Prophylactic: Pepcid 20mg IVP q12 Heparin 5,000 units SC q8
[2017-08-09] MEDS: Sodium Chloride 0.9% 1,000 ML IV SCH ×2 (12:58)
--- NOTE | 2017-08-09 13:51 | CT ---
PROCEDURE: CT HEAD WITHOUT CONTRAST. HISTORY: r/o bleed, s/p MIRTA placement on anticoag COMPARISON: MR brain without contrast performed 03/08/15 TECHNIQUE: Axial computed tomography images were obtained through the head/brain without intravenous contrast. Radiation dose: Total exam DLP = 1395.86 mGy-cm. This CT exam was performed using one or more of the following dose reduction techniques: Automated exposure control, adjustment of the mA and/or kV according to patient size, and/or use of iterative reconstruction technique. FINDINGS: Streak artifact obscures evaluation of the skullbase. Partially imaged endotracheal tube an nasogastric tube. HEMORRHAGE: No intracranial hemorrhage. BRAIN: Diffuse atrophy with prominence of the ventricles and sulci noted. No mass effect or edema. Scattered periventricular and subcortical white matter hypodensities, which are nonspecific, but often seen with chronic microvascular ischemic disease. Please note that MRI with diffusion imaging is more sensitive in the detection of acute ischemic event. VENTRICLES: No hydrocephalus. CALVARIUM: Unremarkable. PARANASAL SINUSES: Unremarkable as visualized. No significant inflammatory changes. MASTOID AIR CELLS: Fluid/opacification of bilateral mastoid air cells. OTHER FINDINGS: None. IMPRESSION: Generalized atrophy. Nonspecific white matter changes. Bilateral fluid/opacification within the mastoid air cells. Correlate for mastoiditis. Endotracheal tube. Nasogastric tube.
--- NOTE | 2017-08-09 15:13 | RAD ---
HISTORY: vent COMPARISON: Chest radiograph performed approximately 6.5 hours prior. FINDINGS: LUNGS: Stable chronic prominence of the bilateral interstitial markings. No focal consolidation. PLEURA: No significant pleural effusion identified, no pneumothorax apparent. CARDIOVASCULAR: Stable cardiomediastinal silhouette. OSSEOUS STRUCTURES: No significant abnormalities. VISUALIZED UPPER ABDOMEN: Normal. OTHER FINDINGS: Interval placement of enteric tube with tip in the stomach. Endotracheal tube, unchanged. IMPRESSION: Interval of tube in satisfactory position. No other significant interval changes.
[2017-08-09] MEDS ORDERED: Propofol 10 mg/ml 1,000 MG/100 ML VIAL IV PRN (17:39)
--- NOTE | 2017-08-09 18:13 | CARD ---
APPROVED REPORT EXAM: Two-dimensional and M-mode echocardiogram with Doppler and color Doppler. Other Information Quality : Technically LimitedRhythm : INDICATION Status/Post DC Non STEMI RISK FACTORS Hypertension 2D DIMENSIONS IVSd1.0 (0.7-1.1cm)LVDd4.4 (3.9-5.9cm) PWd1.0 (0.7-1.1cm)LVDs4.1 (2.5-4.0cm) FS (%) 8.4 %LVEF (%)40.0 (>50%) M-Mode DIMENSIONS RVDd1.73 (2.1-3.2cm)Left Atrium (MM)3.23 (2.5-4.0cm) Aortic Root4.15 (2.2-3.7cm)Aortic Cusp Exc.2.33 (1.5-2.0cm) Mitral Valve MV A Bppxoefz36.1cm/sE/A ratio0.0 TDI E/Lateral E'0.0E/Medial E'0.0 Tricuspid Valve TR Peak [id number]/sTR Peak [id number] LEFT VENTRICLE There is borderline to mild concentric left ventricular hypertrophy. The systolic function is mildly to moderately impaired. Paradoxical septal motion. Diastolic function is undetermined. RIGHT VENTRICLE The right ventricle is normal size. the right ventricular systolic function is mildly reduced. ATRIA The left atrium size is normal. The right atrium size is normal. AORTIC VALVE The aortic valve is normal in structure. MITRAL VALVE The mitral valve is normal in structure. TRICUSPID VALVE The tricuspid valve is normal in structure. There is trace to mild tricuspid regurgitation. PULMONIC VALVE The pulmonic valve is not well visualized. GREAT VESSELS The aortic root is mildly enlarged. The aortic root displays mild sclerocalcific changes. The IVC is dilated. PERICARDIAL EFFUSION There is no pericardial effusion. <Conclusion> SUBOPTIMAL STUDY DUE TO POOR ACOUSTIC WINDOWS There is borderline to mild concentric left ventricular hypertrophy. The systolic function is mildly to moderately impaired. Paradoxical septal motion. Diastolic function is undetermined. the right ventricular systolic function is mildly reduced. The aortic root is mildly enlarged. The aortic root displays mild sclerocalcific changes. There is no pericardial effusion.
--- NOTE | 2017-08-09 19:27 | CARD ---
APPROVED REPORT EKG Measurement Heart [id number] <Conclusion> Atrial fibrillation Low voltage QRS Septal infarct, age undetermined Abnormal ECG
--- NOTE | 2017-08-09 19:39 | CARD ---
APPROVED REPORT EKG Measurement Heart [id number] <Conclusion> Ventricular-paced rhythm Abnormal ECG
[2017-08-10] MEDS: Propofol 10 mg/ml 1,000 MG/100 ML VIAL IV PRN ×4 (00:35→10:41)
[2017-08-10] MEDS: Lidocaine 2 Grams in D5W 2,000 MG/500 ML BAG IV SCH ×3 (01:19→18:29)
[2017-08-10] MEDS: Sodium Chloride 0.9% 1,000 ML IV SCH ×2 (01:22→15:21)
[2017-08-10 05:46] LABS: ABG MECHANICAL RATE 12; ARTERIAL BLOOD GAS MODE PRVC; ARTERIAL BLOOD HGB O2 SAT 96.7 % (95.0-98.0); ATERIAL BLOOD GAS PEEP 5; CARBOXYHEMOGLOBIN 1.2 % (0.5-1.5); DRAW SITE RB; METHEMOGLOBIN 1.1 % (0.0-3.0)
[2017-08-10] MEDS ORDERED: Lidocaine 2% Inj (20ml) ONE (06:17)
[2017-08-10 06:34] LABS: BASO % 0.2 % (0.0-2.0); EOS % 0.1 % (0.0-4.0); LYMPH # 1.3 K/uL (1.0-4.3); LYMPH % 11.2 % (20.0-40.0); MEAN CELL VOLUME 99.2 fL (80.0-94.0); MEAN CORPUSCULAR HEMOGLOBIN 31.9 pg (27.0-31.0); MEAN CORPUSCULAR HGB CONC 32.2 g/dL (33.0-37.0); MEAN PLATELET VOLUME 9.3 fL (7.2-11.7); MONO % 8.4 % (0.0-10.0); NRBC % 0.1 % (0.0-2.0); WHITE BLOOD COUNT 11.7 K/uL (4.8-10.8)
[2017-08-10 07:00] LABS: ALB/GLOB RATIO 1.5 (1.0-2.1); ALKALINE PHOSPHATASE 68 U/L (38-126); ALT/SGPT 64 U/L (21-72); AST/SGOT 44 U/L (17-59); BILIRUBIN,TOTAL 1.1 mg/dL (0.2-1.3); BLOOD UREA NITROGEN 9 mg/dL (9-20); CARBON DIOXIDE 19 mmol/L (22-30); CHLORIDE 105 mmol/L (98-107); GFR AFRICAN-AMERICAN > 60; GLUCOSE,RANDOM 118 mg/dL (75-110); PHOSPHOROUS 3.4 mg/dL (2.5-4.5); POTASSIUM 5.1 mmol/L (3.6-5.2); SODIUM 134 mmol/L (132-148); TOTAL PROTEIN 6.1 g/dL (6.3-8.3)
--- NOTE | 2017-08-10 07:36 | CP.CCUPN ---
<Macho Perez - Last Filed: 08/10/17 10:11> CCU Subjective - Physician Review Subjective (Free Text): PGY1 ICU progress note for Dr. De León Patient seen and examined at bedside this morning. Patient is intubated. ROS unattainable. CCU Objective - Vital Signs / Intake & Output Vital Signs (Last 4 hours): Vital Signs Temp Pulse Resp BP Pulse Ox 08/10/17 05:00 73 15 120/88 100 08/10/17 04:46 72 14 110/78 100 08/10/17 04:31 72 13 95/61 L 98 08/10/17 04:15 74 14 79/49 L 100 08/10/17 04:06 72 14 81/50 L 08/10/17 04:00 98 F 08/10/17 03:50 71 13 71/33 L 98 Intake and Output (Last 8hrs): Intake & Output 08/09/17 08/10/17 08/10/17 22:59 06:59 14:59 Intake Total 1569.6 1787.90 49.0 Output Total 945 505 Balance 624.6 1282.90 49.0 Intake: IV 340.1 823.10 49.0 Intake, IV Amount 1139.5 964.8 rt ac port 1 229.1 166.9 rt ac port 2 640 560 rt fem cordis 30.4 27.9 rt fem cordis distal 240 210 port Other 90 Output: Urine 945 505 Urethral (Melissa) 945 505 Other: # Bowel Movements 0 0 - Physical Exam Head: Positive for: Atraumatic Conjunctiva: Positive for: Normal Mouth: Positive for: Other (intubation) Nose (External): Positive for: Atraumatic Respiratory/Chest: Positive for: Clear to Auscultation, Good Air Exchange. Negative for: Respiratory Distress, Accessory Muscle Use Cardiovascular: Positive for: Regular Rate and Rhythm Abdomen: Positive for: Normal Bowel Sounds. Negative for: Distention Upper Extremity: Negative for: Edema Lower Extremity: Positive for: Other (SCDs in place). Negative for: Edema Neurological: Positive for: Other (intubated) Psychiatric: Negative for: Alert, Oriented x 3 - Medications Active Medications: Active Medications Generic Name Dose Route Start Last Admin Trade Name Freq PRN Reason Stop Dose Admin Aspirin 81 mg 08/09/17 10:00 08/09/17 09:37 Ecotrin PO 81 mg DAILY LOLLY Administration Clopidogrel Bisulfate 75 mg 08/09/17 10:00 08/09/17 09:37 Plavix PO 75 mg DAILY LOLLY Administration Famotidine 20 mg 08/09/17 00:30 08/09/17 22:19 Pepcid IVP 20 mg Q12 LOLLY Administration Heparin Sodium (Porcine) 5,000 units 08/09/17 06:00 08/10/17 05:12 Heparin SC 5,000 units Q8 LOLLY Administration Norepinephrine Bitartrate 16 516 mls @ 7.74 mls/hr 08/09/17 00:58 08/10/17 07 :00 mg/ Dextrose IV 3 mcg/min .Q24H PRN 5.8 mls/hr TITRATE PER MD ORDER Titration Protocol 4 MCG/MIN Sodium Chloride 1,000 mls @ 80 mls/hr 08/09/17 00:00 08/10/17 01:22 Sodium Chloride 0.9% IV 80 mls/hr .[id number] LOLLY Administration Lidocaine HCl/Dextrose 2,000 mg in 500 mls @ 45 mls/hr 08/09/17 06:52 06:00 Lidocaine 2 Grams In D5w IV 1 mg/min .Q11H7M LOLLY 15 mls/hr Protocol Titration 3 MG/MIN Propofol 1,000 mg in 100 mls @ 26.25 mls/hr 08/09/17 17:45 08/10/17 07:00 Diprivan IV 40 mcg/kg/min .Q3H49M PRN 26.649 mls/hr TITRATE PER MD ORDER Titration Protocol 39.4 MCG/KG/MIN Rosuvastatin Calcium 20 mg 08/09/17 22:00 08/09/17 21:55 Crestor PO 20 mg HS LOLLY Administration - Patient Studies Lab Studies: Lab Studies 08/10/17 08/10/17 08/10/17 Range/Units 06:26 06:25 05:00 WBC 11.7 H (4.8-10.8) K/uL RBC 4.34 L (4.40-5.90) Mil/uL Hgb 13.8 (12.0-18.0) g/dL Hct 43.0 (35.0-51.0) % MCV 99.2 H (80.0-94.0) fL MCH 31.9 H (27.0-31.0) pg MCHC 32.2 L (33.0-37.0) g/dL RDW 14.0 (11.5-14.5) % Plt Count 167 (130-400) K/uL MPV 9.3 (7.2-11.7) fL Neut % (Auto) 80.1 H (50.0-75.0) % Lymph % (Auto) 11.2 L (20.0-40.0) % [place] % (Auto) 8.4 (0.0-10.0) % Eos % (Auto) 0.1 (0.0-4.0) % Baso % (Auto) 0.2 (0.0-2.0) % Neut # 9.4 H (1.8-7.0) K/uL Lymph # 1.3 (1.0-4.3) K/uL [place] # 1.0 H (0.0-0.8) K/uL Eos # 0.0 (0.0-0.7) K/uL Baso # 0.0 (0.0-0.2) K/uL Neutrophils % (Manual) (50-75) % Band Neutrophils % (0-2) % Lymphocytes % (Manual) (20-40) % Monocytes % (Manual) (0-10) % Platelet Estimate (NORMAL) Large Platelets Giant Platelets Puncture Site Rb pCO2 37 (35-45) mm/Hg pO2 146 H (80-100) mm/Hg HCO3 21.3 (21-28) mmol/L ABG pH 7.35 (7.35-7.45) ABG Total CO2 21.5 L (22-28) mmol/L ABG O2 Saturation 99.0 H (95-98) % ABG Base Excess -4.6 L (-2.0-3.0) mmol/L ABG Hemoglobin 15.3 (11.7-17.4) g/dL ABG Carboxyhemoglobin 1.2 (0.5-1.5) % POC ABG HHb (Measured) 1.0 (0.0-5.0) % ABG Methemoglobin 1.1 (0.0-3.0) % Andres Test Na A-a O2 Difference 164.0 mm/Hg Respiratory Index 1.1 Hgb O2 Saturation 96.7 (95.0-98.0) % Vent Mode Prvc Mechanical Rate 12 FiO2 50.0 % Tidal Volume 500 PEEP 5 Sodium 134 (132-148) mmol/L Potassium 5.1 (3.6-5.2) mmol/L Chloride 105 (98-107) mmol/L Carbon Dioxide 19 L (22-30) mmol/L Anion Gap 15 (10-20) BUN 9 (9-20) mg/dL Creatinine 1.0 (0.8-1.5) mg/dL Est GFR ( Amer) > 60 Est GFR (Non-Af Amer) > 60 Random Glucose 118 H (75-110) mg/dL Calcium 8.0 L (8.6-10.4) mg/dl Phosphorus 3.4 (2.5-4.5) mg/dL Magnesium 2.0 (1.6-2.3) mg/dL Total Bilirubin 1.1 (0.2-1.3) mg/dL AST 44 (17-59) U/L ALT 64 (21-72) U/L Alkaline Phosphatase 68 (38-126) U/L Total Protein 6.1 L (6.3-8.3) g/dL Albumin 3.6 (3.5-5.0) g/dL Globulin 2.5 (2.2-3.9) gm/dL Albumin/Globulin Ratio 1.5 (1.0-2.1) Urine Color (YELLOW) Urine Clarity (Clear) Urine pH (5.0-8.0) Ur Specific [place] (1.003-1.030) Urine Protein (NEGATIVE) mg/dL Urine Glucose (UA) (Normal) mg/dL Urine Ketones (NEGATIVE) mg/dL Urine Blood (NEGATIVE) Urine Nitrate (NEGATIVE) Urine Bilirubin (NEGATIVE) Urine Urobilinogen (0.2-1.0) mg/dL Ur Leukocyte Esterase (Negative) Patricia/uL Urine WBC (Auto) (0-5) /hpf Urine RBC (Auto) (0-3) /hpf Urine Bacteria (<OCC) 08/09/17 08/09/17 Range/Units 08:41 06:43 WBC (4.8-10.8) K/uL RBC (4.40-5.90) Mil/uL Hgb (12.0-18.0) g/dL Hct (35.0-51.0) % MCV (80.0-94.0) fL MCH (27.0-31.0) pg MCHC (33.0-37.0) g/dL RDW (11.5-14.5) % Plt Count (130-400) K/uL MPV (7.2-11.7) fL Neut % (Auto) (50.0-75.0) % Lymph % (Auto) (20.0-40.0) % [place] % (Auto) (0.0-10.0) % Eos % (Auto) (0.0-4.0) % Baso % (Auto) (0.0-2.0) % Neut # (1.8-7.0) K/uL Lymph # (1.0-4.3) K/uL [place] # (0.0-0.8) K/uL Eos # (0.0-0.7) K/uL Baso # (0.0-0.2) K/uL Neutrophils % (Manual) 82 H (50-75) % Band Neutrophils % 4 H (0-2) % Lymphocytes % (Manual) 8 L (20-40) % Monocytes % (Manual) 6 (0-10) % Platelet Estimate Normal (NORMAL) Large Platelets Present Giant Platelets Present Puncture Site pCO2 (35-45) mm/Hg pO2 (80-100) mm/Hg HCO3 (21-28) mmol/L ABG pH (7.35-7.45) ABG Total CO2 (22-28) mmol/L ABG O2 Saturation (95-98) % ABG Base Excess (-2.0-3.0) mmol/L ABG Hemoglobin (11.7-17.4) g/dL ABG Carboxyhemoglobin (0.5-1.5) % POC ABG HHb (Measured) (0.0-5.0) % ABG Methemoglobin (0.0-3.0) % Andres Test A-a O2 Difference mm/Hg Respiratory Index Hgb O2 Saturation (95.0-98.0) % Vent Mode Mechanical Rate FiO2 % Tidal Volume PEEP Sodium (132-148) mmol/L Potassium (3.6-5.2) mmol/L Chloride (98-107) mmol/L Carbon Dioxide (22-30) mmol/L Anion Gap (10-20) BUN (9-20) mg/dL Creatinine (0.8-1.5) mg/dL Est GFR ( Amer) Est GFR (Non-Af Amer) Random Glucose (75-110) mg/dL Calcium (8.6-10.4) mg/dl Phosphorus (2.5-4.5) mg/dL Magnesium (1.6-2.3) mg/dL Total Bilirubin (0.2-1.3) mg/dL AST (17-59) U/L ALT (21-72) U/L Alkaline Phosphatase (38-126) U/L Total Protein (6.3-8.3) g/dL Albumin (3.5-5.0) g/dL Globulin (2.2-3.9) gm/dL Albumin/Globulin Ratio (1.0-2.1) Urine Color Yellow (YELLOW) Urine Clarity [place] (Clear) Urine pH 5.0 (5.0-8.0) Ur Specific [place] 1.031 H (1.003-1.030) Urine Protein 1+ H (NEGATIVE) mg/dL Urine Glucose (UA) Normal (Normal) mg/dL Urine Ketones Negative (NEGATIVE) mg/dL Urine Blood 2+ H (NEGATIVE) Urine Nitrate Negative (NEGATIVE) Urine Bilirubin Negative (NEGATIVE) Urine Urobilinogen Normal (0.2-1.0) mg/dL Ur Leukocyte Esterase 1+ H (Negative) Patricia/uL Urine WBC (Auto) 14 H (0-5) /hpf Urine RBC (Auto) 24 H (0-3) /hpf Urine Bacteria Rare (<OCC) Laboratory Results - last 24 hr 08/09/17 08/09/17 08/10/17 06:43 08:41 05:00 WBC RBC Hgb Hct MCV MCH MCHC RDW Plt Count MPV Neut % (Auto) Lymph % (Auto) [place] % (Auto) Eos % (Auto) Baso % (Auto) Neut # Lymph # [place] # Eos # Baso # Neutrophils % (Manual) 82 H Band Neutrophils % 4 H Lymphocytes % (Manual) 8 L Monocytes % (Manual) 6 Platelet Estimate Normal Large Platelets Present Giant Platelets Present Puncture Site Rb pCO2 37 pO2 146 H HCO3 21.3 ABG pH 7.35 ABG Total CO2 21.5 L ABG O2 Saturation 99.0 H ABG Base Excess -4.6 L ABG Hemoglobin 15.3 ABG Carboxyhemoglobin 1.2 POC ABG HHb (Measured) 1.0 ABG Methemoglobin 1.1 Andres Test Na A-a O2 Difference 164.0 Respiratory Index 1.1 Hgb O2 Saturation 96.7 Vent Mode Prvc Mechanical Rate 12 FiO2 50.0 Tidal Volume 500 PEEP 5 Sodium Potassium Chloride Carbon Dioxide Anion Gap BUN Creatinine Est GFR ( Amer) Est GFR (Non-Af Amer) Random Glucose Calcium Phosphorus Magnesium Total Bilirubin AST ALT Alkaline Phosphatase Total Protein Albumin Globulin Albumin/Globulin Ratio Urine Color Yellow Urine Clarity [place] Urine pH 5.0 Ur Specific [place] 1.031 H Urine Protein 1+ H Urine Glucose (UA) Normal Urine Ketones Negative Urine Blood 2+ H Urine Nitrate Negative Urine Bilirubin Negative Urine Urobilinogen Normal Ur Leukocyte Esterase 1+ H Urine WBC (Auto) 14 H Urine RBC (Auto) 24 H Urine Bacteria Rare 08/10/17 08/10/17 06:25 06:26 WBC 11.7 H RBC 4.34 L Hgb 13.8 Hct 43.0 MCV 99.2 H MCH 31.9 H MCHC 32.2 L RDW 14.0 Plt Count 167 MPV 9.3 Neut % (Auto) 80.1 H Lymph % (Auto) 11.2 L [place] % (Auto) 8.4 Eos % (Auto) 0.1 Baso % (Auto) 0.2 Neut # 9.4 H Lymph # 1.3 [place] # 1.0 H Eos # 0.0 Baso # 0.0 Neutrophils % (Manual) Band Neutrophils % Lymphocytes % (Manual) Monocytes % (Manual) Platelet Estimate Large Platelets Giant Platelets Puncture Site pCO2 pO2 HCO3 ABG pH ABG Total CO2 ABG O2 Saturation ABG Base Excess ABG Hemoglobin ABG Carboxyhemoglobin POC ABG HHb (Measured) ABG Methemoglobin Andres Test A-a O2 Difference Respiratory Index Hgb O2 Saturation Vent Mode Mechanical Rate FiO2 Tidal Volume PEEP Sodium 134 Potassium 5.1 Chloride 105 Carbon Dioxide 19 L Anion Gap 15 BUN 9 Creatinine 1.0 Est GFR ( Amer) > 60 Est GFR (Non-Af Amer) > 60 Random Glucose 118 H Calcium 8.0 L Phosphorus 3.4 Magnesium 2.0 Total Bilirubin 1.1 AST 44 ALT 64 Alkaline Phosphatase 68 Total Protein 6.1 L Albumin 3.6 Globulin 2.5 Albumin/Globulin Ratio 1.5 Urine Color Urine Clarity Urine pH Ur Specific [place] Urine Protein Urine Glucose (UA) Urine Ketones Urine Blood Urine Nitrate Urine Bilirubin Urine Urobilinogen Ur Leukocyte Esterase Urine WBC (Auto) Urine RBC (Auto) Urine Bacteria Fingerstick Blood Sugar Results: 149 Review of Systems - Review of Systems Systems not reviewed;Unavailable: Intubated Assessment/Plan - Assessment and Plan (Free Text) Assessment: 76 year old male with PMH of HTN and DM presenting with LOC and V-fib/torsade's after PCI and MIRTA placement. Code Heart/Code Blue. Shocked 2x by EMS/7x in ED/ 6x in [facility]. Plan: Cardio: Dr. Velez consulted, help appreciated Dr. Hampton consulted, help appreciated Code Heart/Code Blue s/p left circumflex MIRTA (08/08/17) at [facility] with Dr. Velez patient was taken back to [facility] overnight - no blockages seen, stent patent. V-fib w/ or w/o "Torsades" arrhythmias - shocked 2x by EMS/shocked 7x by ER/ shocked 6x in [facility] = 15 total shocks ECHO- LV function preserved, near normal EF Aspirin 81mg PO daily Plavix 75mg PO daily Crestor 20mg PO HS Levophed drip Lidocaine drip, per cardio - decreased to 1mg/min - attempt to titrate off tomorrow Transvenous pacing, per cardio - pacing rate decreased to 60 bpm A-line replaced, femoral removed - new line placed in L radial NS @ 80ml/hr f/u cardio recs - due to failure of documentation (rhythm strip) of the Torsade's rhythm, amiodarone use is contra indicated at this time, per Dr. Hampton - may need MRI of heart for further evaluation - should be considered for ICD placement Respiratory: Intubated pCO2 37 pO2 146 HCO3 21.3 pH 7.35 Current vent settings: Prvc, TV 500/FiO2 50/RR 12/PEEP 5 - will start to ween off of vent Neuro: Propofol drip - will decrease sedation Head CT - negative for brain bleed Electrolytes: K+ = 5.1 Goal potassium > 4 Prophylactic: Pepcid 20mg IVP q12 Heparin 5,000 units SC q8 Case discussed with Dr. Sarthak Pritchard Chris PGY1 <Yvse De León S - Last Filed: 08/10/17 17:20> CCU Objective - Vital Signs / Intake & Output Vital Signs (Last 4 hours): Vital Signs Temp Pulse Resp BP Pulse Ox 08/10/17 17:00 99 F 64 18 100 08/10/17 16:26 67 11 L 126/76 95 08/10/17 16:00 68 11 L 100 08/10/17 15:26 65 9 L 130/80 100 08/10/17 15:00 66 11 L 100 08/10/17 14:25 63 7 L 113/71 100 08/10/17 14:00 64 6 L 100 08/10/17 13:26 61 8 L 130/73 100 Intake and Output (Last 8hrs): Intake & Output 08/10/17 08/10/17 08/10/17 06:59 14:59 22:59 Intake Total 1787.90 1250.4 285 Output Total 505 1095 345 Balance 1282.90 155.4 -60 Intake: IV 823.10 249.0 Intake, IV Amount 964.8 921.4 285 Right Antecubital 80 rt ac port 1 166.9 127.6 0 rt ac port 2 560 640 160 rt fem cordis 27.9 33.8 0 rt fem cordis distal 210 120 45 port Other 80 Output: Urine 505 1095 345 Urethral (Melissa) 505 1095 345 Other: # Bowel Movements 0 0 0 - Medications Active Medications: Active Medications Generic Name Dose Route Start Last Admin Trade Name Bandar PRN Reason Stop Dose Admin Aspirin 81 mg 08/09/17 10:00 08/10/17 09:07 Ecotrin PO 81 mg DAILY LOLLY Administration Clopidogrel Bisulfate 75 mg 08/09/17 10:00 08/10/17 09:07 Plavix PO 75 mg DAILY LOLLY Administration Famotidine 20 mg 08/09/17 00:30 08/10/17 09:07 Pepcid IVP 20 mg Q12 LOLLY Administration Heparin Sodium (Porcine) 5,000 units 08/09/17 06:00 08/10/17 13:27 Heparin SC 5,000 units Q8 LOLLY Administration Norepinephrine Bitartrate 16 516 mls @ 7.74 mls/hr 08/09/17 00:58 08/10/17 10 :30 mg/ Dextrose IV 0 mcg/min .Q24H PRN 0 mls/hr TITRATE PER MD ORDER Titration Protocol 4 MCG/MIN Sodium Chloride 1,000 mls @ 80 mls/hr 08/09/17 00:00 08/10/17 15:21 Sodium Chloride 0.9% IV 80 mls/hr .[id number] LOLLY Administration Lidocaine HCl/Dextrose 2,000 mg in 500 mls @ 45 mls/hr 08/09/17 06:52 06:00 Lidocaine 2 Grams In D5w IV 1 mg/min .Q11H7M LOLLY 15 mls/hr Protocol Titration 3 MG/MIN Propofol 1,000 mg in 100 mls @ 26.25 mls/hr 08/09/17 17:45 08/10/17 12:10 Diprivan IV 0 mcg/kg/min .Q3H49M PRN 0 mls/hr TITRATE PER MD ORDER Titration Protocol 39.4 MCG/KG/MIN Rosuvastatin Calcium 20 mg 08/09/17 22:00 08/09/17 21:55 Crestor PO 20 mg HS LOLLY Administration - Patient Studies Lab Studies: Lab Studies 08/10/17 08/10/17 08/10/17 Range/Units 06:26 06:25 05:00 WBC 11.7 H (4.8-10.8) K/uL RBC 4.34 L (4.40-5.90) Mil/uL Hgb 13.8 (12.0-18.0) g/dL Hct 43.0 (35.0-51.0) % MCV 99.2 H (80.0-94.0) fL MCH 31.9 H (27.0-31.0) pg MCHC 32.2 L (33.0-37.0) g/dL RDW 14.0 (11.5-14.5) % Plt Count 167 (130-400) K/uL MPV 9.3 (7.2-11.7) fL Neut % (Auto) 80.1 H (50.0-75.0) % Lymph % (Auto) 11.2 L (20.0-40.0) % [place] % (Auto) 8.4 (0.0-10.0) % Eos % (Auto) 0.1 (0.0-4.0) % Baso % (Auto) 0.2 (0.0-2.0) % Neut # 9.4 H (1.8-7.0) K/uL Lymph # 1.3 (1.0-4.3) K/uL [place] # 1.0 H (0.0-0.8) K/uL Eos # 0.0 (0.0-0.7) K/uL Baso # 0.0 (0.0-0.2) K/uL Puncture Site Rb pCO2 37 (35-45) mm/Hg pO2 146 H (80-100) mm/Hg HCO3 21.3 (21-28) mmol/L ABG pH 7.35 (7.35-7.45) ABG Total CO2 21.5 L (22-28) mmol/L ABG O2 Saturation 99.0 H (95-98) % ABG Base Excess -4.6 L (-2.0-3.0) mmol/L ABG Hemoglobin 15.3 (11.7-17.4) g/dL ABG Carboxyhemoglobin 1.2 (0.5-1.5) % POC ABG HHb (Measured) 1.0 (0.0-5.0) % ABG Methemoglobin 1.1 (0.0-3.0) % Andres Test Na A-a O2 Difference 164.0 mm/Hg Respiratory Index 1.1 Hgb O2 Saturation 96.7 (95.0-98.0) % Vent Mode Prvc Mechanical Rate 12 FiO2 50.0 % Tidal Volume 500 PEEP 5 Sodium 134 (132-148) mmol/L Potassium 5.1 (3.6-5.2) mmol/L Chloride 105 (98-107) mmol/L Carbon Dioxide 19 L (22-30) mmol/L Anion Gap 15 (10-20) BUN 9 (9-20) mg/dL Creatinine 1.0 (0.8-1.5) mg/dL Est GFR ( Amer) > 60 Est GFR (Non-Af Amer) > 60 Random Glucose 118 H (75-110) mg/dL Calcium 8.0 L (8.6-10.4) mg/dl Phosphorus 3.4 (2.5-4.5) mg/dL Magnesium 2.0 (1.6-2.3) mg/dL Total Bilirubin 1.1 (0.2-1.3) mg/dL AST 44 (17-59) U/L ALT 64 (21-72) U/L Alkaline Phosphatase 68 (38-126) U/L Total Protein 6.1 L (6.3-8.3) g/dL Albumin 3.6 (3.5-5.0) g/dL Globulin 2.5 (2.2-3.9) gm/dL Albumin/Globulin Ratio 1.5 (1.0-2.1) Laboratory Results - last 24 hr 08/10/17 08/10/17 08/10/17 05:00 06:25 06:26 WBC 11.7 H RBC 4.34 L Hgb 13.8 Hct 43.0 MCV 99.2 H MCH 31.9 H MCHC 32.2 L RDW 14.0 Plt Count 167 MPV 9.3 Neut % (Auto) 80.1 H Lymph % (Auto) 11.2 L [place] % (Auto) 8.4 Eos % (Auto) 0.1 Baso % (Auto) 0.2 Neut # 9.4 H Lymph # 1.3 [place] # 1.0 H Eos # 0.0 Baso # 0.0 Puncture Site Rb pCO2 37 pO2 146 H HCO3 21.3 ABG pH 7.35 ABG Total CO2 21.5 L ABG O2 Saturation 99.0 H ABG Base Excess -4.6 L ABG Hemoglobin 15.3 ABG Carboxyhemoglobin 1.2 POC ABG HHb (Measured) 1.0 ABG Methemoglobin 1.1 Andres Test Na A-a O2 Difference 164.0 Respiratory Index 1.1 Hgb O2 Saturation 96.7 Vent Mode Prvc Mechanical Rate 12 FiO2 50.0 Tidal Volume 500 PEEP 5 Sodium 134 Potassium 5.1 Chloride 105 Carbon Dioxide 19 L Anion Gap 15 BUN 9 Creatinine 1.0 Est GFR ( Amer) > 60 Est GFR (Non-Af Amer) > 60 Random Glucose 118 H Calcium 8.0 L Phosphorus 3.4 Magnesium 2.0 Total Bilirubin 1.1 AST 44 ALT 64 Alkaline Phosphatase 68 Total Protein 6.1 L Albumin 3.6 Globulin 2.5 Albumin/Globulin Ratio 1.5 Attending/Attestation - Attestation I have personally seen and examined this patient.: Yes I have fully participated in the care of the patient.: Yes I have reviewed all pertinent clinical information: Yes Notes (Text): 08/10/17 17:20 Patient seen and examined in the intensive care unit. Case discussed with house staff in the morning rounds. Patient extubated after weaning trial Alert oriented On Diprivan drip On lidocaine drip at 1 mg and no further arrhythmias noted Continue present treatment for now
--- NOTE | 2017-08-10 08:02 | CP.PCM.PN ---
Subjective - Date & Time of Evaluation Date of Evaluation: 08/10/17 Time of Evaluation: 07:57 - Subjective Subjective: Patient seen and evaluated Stable hemodynamics with diprivan and levophed on board Pacer rate decreased to 60 Lidocaine drip decreased to 1mg/min Femoral sheath removed New a line placed in left hand CT head negative for bleed ECHO: Near normal EF Mildly dilated aortic root Titrate off Lidocaine drip tomorrow Antiarrhythmic mgt as per Dr. Hampton D/W his about the clinical condition Objective - Vital Signs/Intake and Output Vital Signs (last 24 hours): Temp Pulse Resp BP Pulse Ox 98 F 60 15 133/106 H 99 08/10/17 04:00 08/10/17 07:00 08/10/17 07:00 08/10/17 06:36 08/10/17 07:00 Intake and Output: 08/10/17 08/10/17 06:59 18:59 Intake Total 2590.30 49.0 Output Total 1055 Balance 1535.30 49.0 - Medications Medications: Current Medications Aspirin (Ecotrin) 81 mg PO DAILY [facility] Last Admin: 08/09/17 09:37 Dose: 81 mg Clopidogrel Bisulfate (Plavix) 75 mg PO DAILY [facility] Last Admin: 08/09/17 09:37 Dose: 75 mg Famotidine (Pepcid) 20 mg IVP Q12 [facility] Last Admin: 08/09/17 22:19 Dose: 20 mg Heparin Sodium (Porcine) (Heparin) 5,000 units SC Q8 [facility] Last Admin: 08/10/17 05:12 Dose: 5,000 units Norepinephrine Bitartrate 16 (mg/ Dextrose) 516 mls @ 7.74 mls/hr IV .Q24H PRN ; Protocol; 4 MCG/MIN PRN Reason: TITRATE PER MD ORDER Last Titration: 08/10/17 07:00 Dose: 3 mcg/min, 5.8 mls/hr Sodium Chloride (Sodium Chloride 0.9%) 1,000 mls @ 80 mls/hr IV .[id number] [facility] Last Admin: 08/10/17 01:22 Dose: 80 mls/hr Lidocaine HCl/Dextrose (Lidocaine 2 Grams In D5w) 2,000 mg in 500 mls @ 45 mls/ hr IV .Q11H7M LOLLY; 3 MG/MIN PRN Reason: Protocol Last Titration: 08/10/17 06:00 Dose: 1 mg/min, 15 mls/hr Propofol (Diprivan) 1,000 mg in 100 mls @ 26.25 mls/hr IV .Q3H49M PRN; Protocol ; 39.4 MCG/KG/MIN PRN Reason: TITRATE PER MD ORDER Last Titration: 08/10/17 07:00 Dose: 40 mcg/kg/min, 26.649 mls/hr Rosuvastatin Calcium (Crestor) 20 mg PO HS LOLLY Last Admin: 08/09/17 21:55 Dose: 20 mg - Labs Labs: 08/10/17 06:25 08/10/17 06:26 PT 11.5 SECONDS (9.7-12.2) 08/09/17 01:00 INR 1.0 08/09/17 01:00 APTT 44 SECONDS (21-34) H D 08/09/17 01:00
--- NOTE | 2017-08-10 09:42 | RAD ---
HISTORY: intubation COMPARISON: Portable chest 08/09/2017. FINDINGS: Endotracheal tube is unchanged in position. Days HC was also in placed appears core was left upper quadrant. An external pacer is identified placed and an additional set of wires seen in the midline upper abdomen possibly coiled into the right atrium of the heart. LUNGS: Images captured in the expiratory phase apparently. There is partial silhouetting the left hemidiaphragm suggesting probable atelectasis or even potential infiltrate here. No right-sided infiltrate is identified. PLEURA: Minimal left pleural effusions not excluded. None is seen the right. There is no pneumothorax bilaterally. CARDIOVASCULAR: Card recess silhouette appears stable. No definite CHF pattern identified at this time. OSSEOUS STRUCTURES: No significant abnormalities. VISUALIZED UPPER ABDOMEN: As above. OTHER FINDINGS: . IMPRESSION: Limited left basilar atelectasis or infiltrate is seen in the interval with remaining lung gannon appearing clear. Trace of pleural effusion is difficult to exclude. None is seen at the right.
--- NOTE | 2017-08-10 15:53 | CP.PCM.PN ---
Subjective - Date & Time of Evaluation Date of Evaluation: 08/10/17 Time of Evaluation: 15:00 - Subjective Subjective: Seen and examined.patient is on CPAP,doing good ,Awake and responsive Objective - Vital Signs/Intake and Output Vital Signs (last 24 hours): Temp Pulse Resp BP Pulse Ox 98.7 F 66 11 L 113/71 100 08/10/17 12:00 08/10/17 15:00 08/10/17 15:00 08/10/17 14:25 08/10/17 15:00 Intake and Output: 08/10/17 08/10/17 06:59 18:59 Intake Total 2590.30 1345.4 Output Total 1055 1245 Balance 1535.30 100.4 - Medications Medications: Current Medications Aspirin (Ecotrin) 81 mg PO DAILY [facility] Last Admin: 08/10/17 09:07 Dose: 81 mg Clopidogrel Bisulfate (Plavix) 75 mg PO DAILY [facility] Last Admin: 08/10/17 09:07 Dose: 75 mg Famotidine (Pepcid) 20 mg IVP Q12 [facility] Last Admin: 08/10/17 09:07 Dose: 20 mg Heparin Sodium (Porcine) (Heparin) 5,000 units SC Q8 [facility] Last Admin: 08/10/17 13:27 Dose: 5,000 units Norepinephrine Bitartrate 16 (mg/ Dextrose) 516 mls @ 7.74 mls/hr IV .Q24H PRN ; Protocol; 4 MCG/MIN PRN Reason: TITRATE PER MD ORDER Last Titration: 08/10/17 10:30 Dose: 0 mcg/min, 0 mls/hr Sodium Chloride (Sodium Chloride 0.9%) 1,000 mls @ 80 mls/hr IV .[id number] [facility] Last Admin: 08/10/17 15:21 Dose: 80 mls/hr Lidocaine HCl/Dextrose (Lidocaine 2 Grams In D5w) 2,000 mg in 500 mls @ 45 mls/ hr IV .Q11H7M [facility]; 3 MG/MIN PRN Reason: Protocol Last Titration: 08/10/17 06:00 Dose: 1 mg/min, 15 mls/hr Propofol (Diprivan) 1,000 mg in 100 mls @ 26.25 mls/hr IV .Q3H49M PRN; Protocol ; 39.4 MCG/KG/MIN PRN Reason: TITRATE PER MD ORDER Last Titration: 08/10/17 12:10 Dose: 0 mcg/kg/min, 0 mls/hr Rosuvastatin Calcium (Crestor) 20 mg PO HS [facility] Last Admin: 08/09/17 21:55 Dose: 20 mg - Labs Labs: 08/10/17 06:25 08/10/17 06:26 PT 11.5 SECONDS (9.7-12.2) 08/09/17 01:00 INR 1.0 08/09/17 01:00 APTT 44 SECONDS (21-34) H D 08/09/17 01:00 - Constitutional Appears: No Acute Distress - Head Exam Head Exam: NORMAL INSPECTION - ENT Exam ENT Exam: Normal Exam - Neck Exam Neck Exam: Normal Inspection - Respiratory Exam Respiratory Exam: Clear to Ausculation Bilateral - Cardiovascular Exam Cardiovascular Exam: REGULAR RHYTHM - GI/Abdominal Exam GI & Abdominal Exam: Normal Bowel Sounds - Exam Exam: NORMAL INSPECTION External exam: NORMAL EXTERNAL EXAM Bimanual exam: NORMAL BIMANUAL EXAM - Extremities Exam Extremities Exam: Full ROM - Back Exam Back Exam: Full ROM - Neurological Exam Neurological Exam: Awake - Psychiatric Exam Psychiatric exam: Normal Affect - Skin Skin Exam: Normal Color Assessment and Plan - Assessment and Plan (Free Text) Assessment: This is a 76 years old male with history of hypertension who had Cardiac Cath & PCI with MIRTA to Cx yesterday at [facility] with Dr. Velez was brought in by BLS after having LOS and arrhythmia. Patient shocked twice and returned to rhythm. Patient given Mg and started on Amiodarone, but had recurrent VF arrythmia without pulse requiring defibrillation. Patient intubated in ED and Code Heart activated. Patient sent garden labourer and started on Levophed. Patient found to have patent stent . Patient had another ventricular arrythmia requiring multiple defibrillation and code blue called. Patient started on Lidocaine. Plan: 1. s/o Code blue V-fib Multiple shock( shocked 2x by EMS/shocked 7x by ER/shocked 6x in garden labourer = 15 total shocks) On MV sedated Continue Aspirin 81mg PO daily,Plavix 75mg PO daily Crestor 20mg PO HS,Levophed drip,Titrate off Lidocaine drip Transvenous pacing on .cardiology follow up appreciated 2.acute respiratory failure Doing good on CPAP,awake and responsive 3. CAD,s/p stent continue asprin,plavix and crestor 4 Prophylactic: Pepcid 20mg IVP q12 Heparin 5,000 units SC q8
--- NOTE | 2017-08-10 22:09 | CP.PCM.PN ---
Subjective - Date & Time of Evaluation Date of Evaluation: 08/10/17 Time of Evaluation: 22:08 - Subjective Subjective: Chart and events reviewed Extubated No recurrence of ventricular fibrillation Weaned off the pacemaker Lidocaine at 1mcg Objective - Vital Signs/Intake and Output Vital Signs (last 24 hours): Temp Pulse Resp BP Pulse Ox 99 F 65 9 L 105/63 100 08/10/17 17:00 08/10/17 20:00 08/10/17 20:00 08/10/17 19:44 08/10/17 20:00 Intake and Output: 08/10/17 08/11/17 18:59 06:59 Intake Total 1630.4 190 Output Total 1500 250 Balance 130.4 -60 - Medications Medications: Current Medications Aspirin (Ecotrin) 81 mg PO DAILY [facility] Last Admin: 08/10/17 09:07 Dose: 81 mg Clopidogrel Bisulfate (Plavix) 75 mg PO DAILY [facility] Last Admin: 08/10/17 09:07 Dose: 75 mg Famotidine (Pepcid) 20 mg IVP Q12 [facility] Last Admin: 08/10/17 21:27 Dose: 20 mg Heparin Sodium (Porcine) (Heparin) 5,000 units SC Q8 [facility] Last Admin: 08/10/17 21:27 Dose: 5,000 units Sodium Chloride (Sodium Chloride 0.9%) 1,000 mls @ 80 mls/hr IV .[id number] [facility] Last Admin: 08/10/17 15:21 Dose: 80 mls/hr Lidocaine HCl/Dextrose (Lidocaine 2 Grams In D5w) 2,000 mg in 500 mls @ 45 mls/ hr IV .Q11H7M [facility]; 3 MG/MIN PRN Reason: Protocol Last Admin: 08/10/17 18:29 Dose: Not Given Mexiletine HCl (Mexiletine) 150 mg PO Q8 [facility] Last Admin: 08/10/17 21:28 Dose: 150 mg Rosuvastatin Calcium (Crestor) 20 mg PO HS [facility] Last Admin: 08/10/17 21:27 Dose: 20 mg - Labs Labs: 08/10/17 06:25 08/10/17 06:26 PT 11.5 SECONDS (9.7-12.2) 08/09/17 01:00 INR 1.0 08/09/17 01:00 APTT 44 SECONDS (21-34) H D 08/09/17 01:00 Assessment and Plan - Assessment and Plan (Free Text) Assessment: Mr. Rodriguez presented with unstable tachy-arrhythmias after an unremarkable percutaneous intervention of the left circumflex. The identity of the initiating arrhythmia is difficult to ascertain in absence of documentation; assuming a polymorphic tachycardia, its unlikely to be ' tporsade given normal Qtc intervals; the subsequent events at the hospital for which documentation is available is ventricular fibrillation. In absence of myocardial ischemia and seemingly preserved LV systolic function the trigger and the supportive substrate for the arrhythmia is not obvious; there is no evidence or suggestion of "myocarditis' or a stress cardiomyopathy , toxin drugs or electrolytes or a primary electrical abnormality (brugada etc) Diagnostic options include an MRI of the heart Regardless if neurological function is not a concern he should be considered for an ICD; in the interim would continue with lidocaine, wean him off the transvenous pacing support and obtain an echocardiogram amiodarone has been used with polymorphic VT but is contraindicated with ' torsade'; given difficulty in obtaining the initiating arrhythmia would defer its use for now. Much improved Extubated No recurrence of VT/VF Plan DC lidocaine Mexilitene 150 mg tid and then 300mg tid Life vest ICD implant Possibly tuesday
[2017-08-11] MEDS: Sodium Chloride 0.9% 1,000 ML IV SCH ×3 (03:59→22:43)
[2017-08-11] MEDS: Lidocaine 2 Grams in D5W 2,000 MG/500 ML BAG IV SCH (06:12)
[2017-08-11 06:36] LABS: BASO % 0.2 % (0.0-2.0); EOS % 0.4 % (0.0-4.0); HEMATOCRIT 40.1 % (35.0-51.0); LYMPH # 1.2 K/uL (1.0-4.3); LYMPH % 13.6 % (20.0-40.0); MEAN CELL VOLUME 97.4 fL (80.0-94.0); MEAN CORPUSCULAR HEMOGLOBIN 33.1 pg (27.0-31.0); MEAN PLATELET VOLUME 8.8 fL (7.2-11.7); MONO # 1.1 K/uL (0.0-0.8); MONO % 12.3 % (0.0-10.0); RED CELL DISTRIBUTION WIDTH 13.6 % (11.5-14.5)
[2017-08-11 06:45] LABS: ALB/GLOB RATIO 1.5 (1.0-2.1); ALKALINE PHOSPHATASE 61 U/L (38-126); ALT/SGPT 45 U/L (21-72); AST/SGOT 25 U/L (17-59); BILIRUBIN,TOTAL 1.1 mg/dL (0.2-1.3); BLOOD UREA NITROGEN 9 mg/dL (9-20); CALCIUM 8.3 mg/dl (8.6-10.4); CARBON DIOXIDE 23 mmol/L (22-30); CHLORIDE 108 mmol/L (98-107); GFR AFRICAN-AMERICAN > 60; GLUCOSE,RANDOM 92 mg/dL (75-110); MAGNESIUM 1.9 mg/dL (1.6-2.3); POTASSIUM 3.4 mmol/L (3.6-5.2); SODIUM 139 mmol/L (132-148); TOTAL PROTEIN 5.1 g/dL (6.3-8.3)
[2017-08-11] MEDS: Potassium Chloride 20 mEq ER Tab PO SCH (08:20)
[2017-08-11] MEDS: Magnesium Sulfate 1 GM in Dextrose 5% In Water 50 ML IV SCH ×2 (08:55→09:29)
--- NOTE | 2017-08-11 11:58 | CP.CCUPN ---
CCU Subjective - Physician Review Subjective (Free Text): Patient seen and examined at bedside. Patient lying in bed denies any chest pain. Patient not pacing having a sinus rhythm. 08/11/17 11:53 CCU Objective - Vital Signs / Intake & Output Vital Signs (Last 4 hours): Vital Signs Temp Pulse Resp BP Pulse Ox 08/11/17 10:00 65 11 L 98 08/11/17 09:25 59 L 12 110/75 97 08/11/17 09:00 59 L 11 L 96 08/11/17 08:26 59 L 9 L 119/64 97 08/11/17 08:00 98.4 F 61 9 L 97 Intake and Output (Last 8hrs): Intake & Output 08/10/17 08/11/17 08/11/17 22:59 06:59 14:59 Intake Total 810 1080 295 Output Total 855 550 220 Balance -45 530 75 Weight 239 lb Intake: IV 320 Intake, IV Amount 760 760 295 Right Antecubital 80 Right Hand 400 640 280 rt ac port 1 0 rt ac port 2 160 rt fem cordis 0 rt fem cordis distal 120 120 15 port Oral 50 Output: Urine 855 550 220 Urethral (Melissa) 855 550 220 Other: # Bowel Movements 0 - Physical Exam Head: Positive for: Atraumatic Pupils: Positive for: PERRL Conjunctiva: Positive for: Normal Mouth: Positive for: Other (intubation) Nose (External): Positive for: Atraumatic Respiratory/Chest: Positive for: Clear to Auscultation, Good Air Exchange. Negative for: Respiratory Distress, Accessory Muscle Use Cardiovascular: Positive for: Regular Rate and Rhythm Abdomen: Positive for: Normal Bowel Sounds. Negative for: Distention Upper Extremity: Positive for: Normal Inspection. Negative for: Edema Lower Extremity: Positive for: Other (SCDs in place). Negative for: Edema Neurological: Positive for: GCS=15, Speech Normal, Other (intubated) Skin: Positive for: Warm Psychiatric: Negative for: Alert, Oriented x 3 - Medications Active Medications: Active Medications Generic Name Dose Route Start Last Admin Trade Name Freq PRN Reason Stop Dose Admin Aspirin 81 mg 08/09/17 10:00 08/11/17 09:34 Ecotrin PO 81 mg DAILY [facility] Administration Clopidogrel Bisulfate 75 mg 08/09/17 10:00 08/11/17 09:34 Plavix PO 75 mg DAILY [facility] Administration Famotidine 20 mg 08/09/17 00:30 08/11/17 09:34 Pepcid IVP 20 mg Q12 [facility] Administration Heparin Sodium (Porcine) 5,000 units 08/09/17 06:00 08/11/17 06:11 Heparin SC 5,000 units Q8 [facility] Administration Sodium Chloride 1,000 mls @ 50 mls/hr 08/11/17 08:30 08/11/17 08:31 Sodium Chloride 0.9% IV 50 mls/hr .Q20H [facility] Administration Mexiletine HCl 150 mg 08/10/17 22:00 08/11/17 08:19 Mexiletine PO 150 mg Q8 [facility] Administration Potassium Chloride 40 meq 08/11/17 08:30 08/11/17 08:20 K-Dur 20 Meq Er Tab PO 40 meq ONCE [facility] Administration Rosuvastatin Calcium 20 mg 08/09/17 22:00 08/10/17 21:27 Crestor PO 20 mg HS [facility] Administration - Patient Studies Lab Studies: Microbiology Studies 08/09/17 00:20 MRSA Culture (Admit) - Final Nose MRSA NOT DETECTED Lab Studies 08/11/17 08/11/17 Range/Units 06:16 06:16 WBC 9.0 (4.8-10.8) K/uL RBC 4.11 L (4.40-5.90) Mil/uL Hgb 13.6 (12.0-18.0) g/dL Hct 40.1 (35.0-51.0) % MCV 97.4 H (80.0-94.0) fL MCH 33.1 H (27.0-31.0) pg MCHC 34.0 (33.0-37.0) g/dL RDW 13.6 (11.5-14.5) % Plt Count 132 (130-400) K/uL MPV 8.8 (7.2-11.7) fL Neut % (Auto) 73.5 (50.0-75.0) % Lymph % (Auto) 13.6 L (20.0-40.0) % Garvin % (Auto) 12.3 H (0.0-10.0) % Eos % (Auto) 0.4 (0.0-4.0) % Baso % (Auto) 0.2 (0.0-2.0) % Neut # 6.6 (1.8-7.0) K/uL Lymph # 1.2 (1.0-4.3) K/uL Garvin # 1.1 H (0.0-0.8) K/uL Eos # 0.0 (0.0-0.7) K/uL Baso # 0.0 (0.0-0.2) K/uL Sodium 139 (132-148) mmol/L Potassium 3.4 L (3.6-5.2) mmol/L Chloride 108 H (98-107) mmol/L Carbon Dioxide 23 (22-30) mmol/L Anion Gap 12 (10-20) BUN 9 (9-20) mg/dL Creatinine 1.0 (0.8-1.5) mg/dL Est GFR ( Amer) > 60 Est GFR (Non-Af Amer) > 60 Random Glucose 92 (75-110) mg/dL Calcium 8.3 L (8.6-10.4) mg/dl Magnesium 1.9 (1.6-2.3) mg/dL Total Bilirubin 1.1 (0.2-1.3) mg/dL AST 25 (17-59) U/L ALT 45 (21-72) U/L Alkaline Phosphatase 61 (38-126) U/L Total Creatine Kinase 69 (55-170) U/L CK-MB (Mass) 1.07 (0.0-3.38) ng/mL Troponin I 0.2560 H* (0.00-0.120) ng/mL Total Protein 5.1 L (6.3-8.3) g/dL Albumin 3.0 L (3.5-5.0) g/dL Globulin 2.1 L (2.2-3.9) gm/dL Albumin/Globulin Ratio 1.5 (1.0-2.1) Laboratory Results - last 24 hr 08/11/17 08/11/17 06:16 06:16 WBC 9.0 RBC 4.11 L Hgb 13.6 Hct 40.1 MCV 97.4 H MCH 33.1 H MCHC 34.0 RDW 13.6 Plt Count 132 MPV 8.8 Neut % (Auto) 73.5 Lymph % (Auto) 13.6 L Garvin % (Auto) 12.3 H Eos % (Auto) 0.4 Baso % (Auto) 0.2 Neut # 6.6 Lymph # 1.2 Garvin # 1.1 H Eos # 0.0 Baso # 0.0 Sodium 139 Potassium 3.4 L Chloride 108 H Carbon Dioxide 23 Anion Gap 12 BUN 9 Creatinine 1.0 Est GFR ( Amer) > 60 Est GFR (Non-Af Amer) > 60 Random Glucose 92 Calcium 8.3 L Magnesium 1.9 Total Bilirubin 1.1 AST 25 ALT 45 Alkaline Phosphatase 61 Total Creatine Kinase 69 CK-MB (Mass) 1.07 Troponin I 0.2560 H* Total Protein 5.1 L Albumin 3.0 L Globulin 2.1 L Albumin/Globulin Ratio 1.5 EKG/Cardiology Studies: Cardiology / EKG Studies 08/11/17 04:59 EKG [ELECTROCARDIOGRAM] Stat Comment: Mode Of Transportation: Reason For Exam: chest pain Fingerstick Blood Sugar Results: 149 Critical Care Progress Note - Nutrition Nutrition: Nutrition Category Date Time Status Heart Healthy Diet [DIET] Diets 08/11/17 Lunch Active Assessment/Plan - Assessment and Plan (Free Text) Plan: -V-tach: currently controlled on IV lidociaine and on oral mexilextine -Acute respiratory failure: resolved -CAD s/p PCI: will benefit from dual antiplatelets, beta blockers on hold 2nd baseline phylicia, continue statin if no contraindications -continue DVT/PUD ppx -Obesity hypoventilation: will benefit from CPAP at night PRn Patient remains hemodynamically stable off pressors
--- NOTE | 2017-08-11 12:51 | CP.PCM.PN ---
Subjective - Date & Time of Evaluation Date of Evaluation: 08/11/17 Time of Evaluation: 12:22 - Subjective Subjective: Sitting upright in chair Conscious and alert Family in attendance Offered no complaints Objective - Vital Signs/Intake and Output Vital Signs (last 24 hours): Temp Pulse Resp BP Pulse Ox 98.4 F 65 11 L 110/75 98 08/11/17 08:00 08/11/17 10:00 08/11/17 10:00 08/11/17 09:25 08/11/17 10:00 Intake and Output: 08/11/17 08/11/17 06:59 18:59 Intake Total 1510 295 Output Total 1000 220 Balance 510 75 - Medications Medications: Current Medications Aspirin (Ecotrin) 81 mg PO DAILY [facility] Last Admin: 08/11/17 09:34 Dose: 81 mg Clopidogrel Bisulfate (Plavix) 75 mg PO DAILY [facility] Last Admin: 08/11/17 09:34 Dose: 75 mg Famotidine (Pepcid) 20 mg IVP Q12 [facility] Last Admin: 08/11/17 09:34 Dose: 20 mg Heparin Sodium (Porcine) (Heparin) 5,000 units SC Q8 [facility] Last Admin: 08/11/17 06:11 Dose: 5,000 units Sodium Chloride (Sodium Chloride 0.9%) 1,000 mls @ 50 mls/hr IV .Q20H [facility] Last Admin: 08/11/17 08:31 Dose: 50 mls/hr Mexiletine HCl (Mexiletine) 150 mg PO Q8 [facility] Last Admin: 08/11/17 08:19 Dose: 150 mg Potassium Chloride (K-Dur 20 Meq Er Tab) 40 meq PO ONCE [facility] Last Admin: 08/11/17 08:20 Dose: 40 meq Rosuvastatin Calcium (Crestor) 20 mg PO HS [facility] Last Admin: 08/10/17 21:27 Dose: 20 mg - Labs Labs: 08/11/17 06:16 08/11/17 06:16 PT 11.5 SECONDS (9.7-12.2) 08/09/17 01:00 INR 1.0 08/09/17 01:00 APTT 44 SECONDS (21-34) H D 08/09/17 01:00 - Additional Findings Additional findings: Normal venous pressures normal heart sounds Assessment and Plan - Assessment and Plan (Free Text) Assessment: Stable post extubation remains in sinus rhythm without significant ventricular ectopy Stable hemodynamics Spontaneous ventricular fibrillation temporally related to coronary atherectomy although in time There were no ischemic symptoms ST changes or stenosis/occlusion or spasm of the coronaries Mechanism is unclear and speculative; its difficult to decipher a spontaneous idipathic etiology from an ischemic (undefined pathways ?microemboli The role of defibrillator is undefined but a clinical imperative Discussed with patient and family Discussed with Dr. Agustin Calderon NPO post breakfast tuesday Possible ICD in PM at the [facility]
--- NOTE | 2017-08-11 14:38 | CP.PCM.PN ---
Subjective - Date & Time of Evaluation Date of Evaluation: 08/11/17 Time of Evaluation: 13:00 - Subjective Subjective: Patient was seen and examined,Lying on bed comfortable.No complain.Extubated,c/ o hungry d/w Dr Velez s/p removal of transvenous pacing Objective - Vital Signs/Intake and Output Vital Signs (last 24 hours): Temp Pulse Resp BP Pulse Ox 97.8 F 60 11 L 125/79 96 08/11/17 12:00 08/11/17 12:25 08/11/17 12:25 08/11/17 12:25 08/11/17 12:25 Intake and Output: 08/11/17 08/11/17 06:59 18:59 Intake Total 1510 395 Output Total 1000 420 Balance 510 -25 - Medications Medications: Current Medications Aspirin (Ecotrin) 81 mg PO DAILY [facility] Last Admin: 08/11/17 09:34 Dose: 81 mg Clopidogrel Bisulfate (Plavix) 75 mg PO DAILY [facility] Last Admin: 08/11/17 09:34 Dose: 75 mg Famotidine (Pepcid) 20 mg IVP Q12 [facility] Last Admin: 08/11/17 09:34 Dose: 20 mg Heparin Sodium (Porcine) (Heparin) 5,000 units SC Q8 [facility] Last Admin: 08/11/17 06:11 Dose: 5,000 units Sodium Chloride (Sodium Chloride 0.9%) 1,000 mls @ 50 mls/hr IV .Q20H [facility] Last Admin: 08/11/17 08:31 Dose: 50 mls/hr Mexiletine HCl (Mexiletine) 150 mg PO Q8 [facility] Last Admin: 08/11/17 08:19 Dose: 150 mg Potassium Chloride (K-Dur 20 Meq Er Tab) 40 meq PO ONCE [facility] Last Admin: 08/11/17 08:20 Dose: 40 meq Rosuvastatin Calcium (Crestor) 20 mg PO HS [facility] Last Admin: 08/10/17 21:27 Dose: 20 mg - Labs Labs: 08/11/17 06:16 08/11/17 06:16 PT 11.5 SECONDS (9.7-12.2) 08/09/17 01:00 INR 1.0 08/09/17 01:00 APTT 44 SECONDS (21-34) H D 08/09/17 01:00 - Constitutional Appears: Non-toxic - Head Exam Head Exam: NORMAL INSPECTION - Eye Exam Eye Exam: Normal appearance - ENT Exam ENT Exam: Mucous Membranes Moist - Neck Exam Neck Exam: Full ROM - Respiratory Exam Respiratory Exam: Clear to Ausculation Bilateral, NORMAL BREATHING PATTERN - Cardiovascular Exam Cardiovascular Exam: REGULAR RHYTHM - GI/Abdominal Exam GI & Abdominal Exam: Soft, Normal Bowel Sounds - Back Exam Back Exam: NORMAL INSPECTION - Neurological Exam Neurological Exam: Oriented x3 - Psychiatric Exam Psychiatric exam: Normal Mood - Skin Skin Exam: Dry Assessment and Plan - Assessment and Plan (Free Text) Plan: his is a 76 years old male with history of hypertension who had Cardiac Cath & PCI with MIRTA to Cx yesterday at [facility] with Dr. Velez was brought in by BLS after having LOS and arrhythmia. Patient shocked twice and returned to rhythm. Patient given Mg and started on Amiodarone, but had recurrent VF arrythmia without pulse requiring defibrillation. Patient intubated in ED and Code Heart activated. Patient sent microbiology lab technician and started on Levophed. Patient found to have patent stent . Patient had another ventricular arrythmia requiring multiple defibrillation and code blue called. Patient started on Lidocaine. Plan: 1. s/o Code blue V-fib Multiple shock( shocked 2x by EMS/shocked 7x by ER/shocked 6x in microbiology lab technician = 15 total shocks) Continue Aspirin 81mg PO daily,Plavix 75mg PO daily Crestor 20mg PO HS,Levophed drip, off Lidocaine drip Off Transvenous pacing on .cardiology follow up appreciated d/w Dr Agustin Hampton's f/u appreciated Possible ICD NPO after breakfast on Tuesday for ICD at [facility] continue ICU care 2.acute respiratory failure Doing good on CPAP,awake and responsive 3. CAD,s/p stent continue asprin,plavix and crestor 4 Prophylactic: Pepcid 20mg IVP q12 Heparin 5,000 units SC q8
[2017-08-11 17:49] LABS: BLOOD UREA NITROGEN 11 mg/dL (9-20); CALCIUM 8.4 mg/dl (8.6-10.4); CARBON DIOXIDE 21 mmol/L (22-30); CHLORIDE 108 mmol/L (98-107); GFR AFRICAN-AMERICAN > 60; GLUCOSE,RANDOM 93 mg/dL (75-110); MAGNESIUM 2.2 mg/dL (1.6-2.3); PHOSPHOROUS 2.2 mg/dL (2.5-4.5); POTASSIUM 3.9 mmol/L (3.6-5.2); SODIUM 136 mmol/L (132-148)
--- NOTE | 2017-08-11 23:38 | CP.PCM.PN ---
Subjective - Date & Time of Evaluation Date of Evaluation: 08/11/17 Time of Evaluation: 17:20 - Subjective Subjective: Patient seen and evaluated Stable A line and TVP removed Lido drip d/c ed For ICD on Tuesday at [facility] Objective - Vital Signs/Intake and Output Vital Signs (last 24 hours): Temp Pulse Resp BP Pulse Ox 97.3 F L 61 11 L 133/82 99 08/11/17 20:00 08/11/17 22:26 08/11/17 22:26 08/11/17 22:26 08/11/17 22:26 Intake and Output: 08/11/17 08/12/17 18:59 06:59 Intake Total 995 200 Output Total 522 Balance 473 200 - Medications Medications: Current Medications Aspirin (Ecotrin) 81 mg PO DAILY [facility] Last Admin: 08/11/17 09:34 Dose: 81 mg Clopidogrel Bisulfate (Plavix) 75 mg PO DAILY [facility] Last Admin: 08/11/17 09:34 Dose: 75 mg Docusate Sodium (Colace) 100 mg PO TID [facility] Famotidine (Pepcid) 20 mg IVP Q12 [facility] Last Admin: 08/11/17 21:16 Dose: 20 mg Heparin Sodium (Porcine) (Heparin) 5,000 units SC Q8 [facility] Last Admin: 08/11/17 21:16 Dose: 5,000 units Sodium Chloride (Sodium Chloride 0.9%) 1,000 mls @ 50 mls/hr IV .Q20H [facility] Last Admin: 08/11/17 22:43 Dose: 50 mls/hr Mexiletine HCl (Mexiletine) 150 mg PO Q8 [facility] Last Admin: 08/11/17 21:16 Dose: 150 mg Potassium Chloride (K-Dur 20 Meq Er Tab) 40 meq PO ONCE [facility] Last Admin: 08/11/17 08:20 Dose: 40 meq Rosuvastatin Calcium (Crestor) 20 mg PO HS [facility] Last Admin: 08/11/17 21:16 Dose: 20 mg Sennosides (Senokot Tab) 8.6 mg PO HS [facility] Last Admin: 08/11/17 21:16 Dose: 8.6 mg - Labs Labs: 08/11/17 06:16 08/11/17 16:01 PT 11.5 SECONDS (9.7-12.2) 08/09/17 01:00 INR 1.0 08/09/17 01:00 APTT 44 SECONDS (21-34) H D 08/09/17 01:00
[2017-08-12 06:47] LABS: HEMATOCRIT 40.5 % (35.0-51.0); MEAN CELL VOLUME 97.7 fL (80.0-94.0); MEAN CORPUSCULAR HEMOGLOBIN 33.2 pg (27.0-31.0); MEAN CORPUSCULAR HGB CONC 33.9 g/dL (33.0-37.0); MEAN PLATELET VOLUME 9.2 fL (7.2-11.7); RED CELL DISTRIBUTION WIDTH 13.4 % (11.5-14.5); WHITE BLOOD COUNT 7.2 K/uL (4.8-10.8)
[2017-08-12] MEDS: Sodium Chloride 0.9% 1,000 ML IV SCH (07:48)
[2017-08-12 07:50] LABS: ALKALINE PHOSPHATASE 55 U/L (38-126); ALT/SGPT 43 U/L (21-72); AST/SGOT 26 U/L (17-59); BILIRUBIN,TOTAL 1.1 mg/dL (0.2-1.3); BLOOD UREA NITROGEN 11 mg/dL (9-20); CALCIUM 8.3 mg/dl (8.6-10.4); CARBON DIOXIDE 22 mmol/L (22-30); CHLORIDE 107 mmol/L (98-107); GFR AFRICAN-AMERICAN > 60; GLUCOSE,RANDOM 79 mg/dL (75-110); PHOSPHOROUS 2.4 mg/dL (2.5-4.5); SODIUM 136 mmol/L (132-148); TOTAL PROTEIN 5.4 g/dL (6.3-8.3)
[2017-08-12 07:52] LABS: ALB/GLOB RATIO 1.5 (1.0-2.1)
--- NOTE | 2017-08-12 12:25 | CP.CCUPN ---
CCU Subjective - Physician Review Subjective (Free Text): PGY1 ICU progress note for Dr. Choi Patient seen and examined at bedside this morning. Patient is resting comfortably eating breakfast, talking with his . Patient denies any chest pain. Patient is in sinus rhythm @60 bpm. 08/12/17 12:57 CCU Objective - Vital Signs / Intake & Output Intake and Output (Last 8hrs): Intake & Output 08/11/17 08/12/17 08/12/17 22:59 06:59 14:59 Intake Total 550 400 50 Output Total 302 350 Balance 248 50 50 Weight 251 lb Intake: Intake, IV Amount 400 400 50 Right Hand 400 400 50 Oral 150 Output: Urine 300 350 Urethral (Melissa) 100 Urine, Voided 200 350 Stool 2 Other: # Voids Urethral (Melissa) 1 - Physical Exam Head: Positive for: Atraumatic Pupils: Positive for: PERRL Conjunctiva: Positive for: Normal Mouth: Positive for: Moist Mucous Membranes Nose (External): Positive for: Atraumatic Respiratory/Chest: Positive for: Clear to Auscultation, Good Air Exchange. Negative for: Respiratory Distress, Accessory Muscle Use Cardiovascular: Positive for: Regular Rate and Rhythm Abdomen: Positive for: Normal Bowel Sounds. Negative for: Distention Upper Extremity: Positive for: Normal Inspection. Negative for: Edema Lower Extremity: Positive for: Other (SCDs in place). Negative for: Edema Neurological: Positive for: GCS=15, Speech Normal, Other (intubated) Skin: Positive for: Warm Psychiatric: Positive for: Alert, Oriented x 3 - Medications Active Medications: Active Medications Generic Name Dose Route Start Last Admin Trade Name Ducq PRN Reason Stop Dose Admin Aspirin 81 mg 08/09/17 10:00 08/12/17 11:19 Ecotrin PO 81 mg DAILY [facility] Administration Clopidogrel Bisulfate 75 mg 08/09/17 10:00 08/12/17 11:19 Plavix PO 75 mg DAILY [facility] Administration Docusate Sodium 100 mg 08/12/17 10:00 08/12/17 11:19 Colace PO 100 mg TID [facility] Administration Famotidine 20 mg 08/09/17 00:30 08/12/17 11:19 Pepcid IVP 20 mg Q12 [facility] Administration Sodium Chloride 1,000 mls @ 50 mls/hr 08/11/17 08:30 08/12/17 07:48 Sodium Chloride 0.9% IV Not Given .Q20H [facility] Mexiletine HCl 150 mg 08/10/17 22:00 08/12/17 05:38 Mexiletine PO 150 mg Q8 [facility] Administration Potassium Chloride 40 meq 08/11/17 08:30 08/11/17 08:20 K-Dur 20 Meq Er Tab PO 40 meq ONCE [facility] Administration Rosuvastatin Calcium 20 mg 08/09/17 22:00 08/11/17 21:16 Crestor PO 20 mg HS [facility] Administration Sennosides 8.6 mg 08/11/17 22:00 08/11/17 21:16 Senokot Tab PO 8.6 mg HS [facility] Administration - Patient Studies Lab Studies: Microbiology Studies 08/09/17 00:20 MRSA Culture (Admit) - Final Nose MRSA NOT DETECTED Lab Studies 08/12/17 08/12/17 08/11/17 Range/Units 06:36 06:36 16:01 WBC 7.2 (4.8-10.8) K/uL RBC 4.15 L (4.40-5.90) Mil/uL Hgb 13.7 (12.0-18.0) g/dL Hct 40.5 (35.0-51.0) % MCV 97.7 H (80.0-94.0) fL MCH 33.2 H (27.0-31.0) pg MCHC 33.9 (33.0-37.0) g/dL RDW 13.4 (11.5-14.5) % Plt Count 128 L (130-400) K/uL MPV 9.2 (7.2-11.7) fL Differential Comment Sodium 136 136 (132-148) mmol/L Potassium 4.0 3.9 (3.6-5.2) mmol/L Chloride 107 108 H (98-107) mmol/L Carbon Dioxide 22 21 L (22-30) mmol/L Anion Gap 11 11 (10-20) BUN 11 11 (9-20) mg/dL Creatinine 1.0 1.0 (0.8-1.5) mg/dL Est GFR ( Amer) > 60 > 60 Est GFR (Non-Af Amer) > 60 > 60 Random Glucose 79 93 (75-110) mg/dL Calcium 8.3 L 8.4 L (8.6-10.4) mg/dl Phosphorus 2.4 L 2.2 L (2.5-4.5) mg/dL Magnesium 2.0 2.2 (1.6-2.3) mg/dL Total Bilirubin 1.1 (0.2-1.3) mg/dL AST 26 (17-59) U/L ALT 43 (21-72) U/L Alkaline Phosphatase 55 (38-126) U/L Total Protein 5.4 L (6.3-8.3) g/dL Albumin 3.2 L (3.5-5.0) g/dL Globulin 2.2 (2.2-3.9) gm/dL Albumin/Globulin Ratio 1.5 (1.0-2.1) Laboratory Results - last 24 hr 08/11/17 08/12/17 08/12/17 16:01 06:36 06:36 WBC 7.2 RBC 4.15 L Hgb 13.7 Hct 40.5 MCV 97.7 H MCH 33.2 H MCHC 33.9 RDW 13.4 Plt Count 128 L MPV 9.2 Differential Comment Sodium 136 136 Potassium 3.9 4.0 Chloride 108 H 107 Carbon Dioxide 21 L 22 Anion Gap 11 11 BUN 11 11 Creatinine 1.0 1.0 Est GFR ( Amer) > 60 > 60 Est GFR (Non-Af Amer) > 60 > 60 Random Glucose 93 79 Calcium 8.4 L 8.3 L Phosphorus 2.2 L 2.4 L Magnesium 2.2 2.0 Total Bilirubin 1.1 AST 26 ALT 43 Alkaline Phosphatase 55 Total Protein 5.4 L Albumin 3.2 L Globulin 2.2 Albumin/Globulin Ratio 1.5 Fingerstick Blood Sugar Results: 149 Review of Systems - Cardiovascular Cardiovascular: absent: Chest Pain, Chest Pain at Rest, Dyspnea - Respiratory Respiratory: absent: Cough, Dyspnea on Exertion - Gastrointestinal Gastrointestinal: absent: Abdominal Pain, Nausea, Vomiting - Neurological Neurological: absent: Syncope Critical Care Progress Note - Nutrition Nutrition: Nutrition Category Date Time Status Heart Healthy Diet [DIET] Diets 08/11/17 Lunch Active Assessment/Plan - Assessment and Plan (Free Text) Assessment: 76 year old male with PMH of HTN and DM presenting with LOC and V-fib/torsade's after PCI and MIRTA placement. Code Heart/Code Blue. Shocked 2x by EMS/7x in ED/ 6x in orthodontic laboratory technician. Plan: Cardio: Dr. Velez consulted, help appreciated Dr. Hampton consulted, help appreciated Code Heart/Code Blue s/p left circumflex MIRTA (08/08/17) at [facility] [place] with Dr. Velez patient was taken back to orthodontic laboratory technician overnight - no blockages seen, stent patent. V-fib w/ or w/o "Torsades" arrhythmias - shocked 2x by EMS/shocked 7x by ER/ shocked 6x in orthodontic laboratory technician = 15 total shocks ECHO- LV function preserved, near normal EF Aspirin 81mg PO daily Plavix 75mg PO daily Crestor 20mg PO HS Mexiletine 150mg PO q8h Levophed drip Lidocaine drip, per cardio - discontinued Transvenous pacing, per cardio - removed A-line removed NS @ 50ml/hr f/u cardio recs - Patient scheduled for ICD on tuesday at [facility] [place] Respiratory: Extubated Saturating well @99% on 3L NC Neuro: Head CT - negative for brain bleed Electrolytes: K+ = 4.0 Goal potassium > 4 Prophylactic: Pepcid 20mg IVP q12h Heparin 5,000 units SC q8h Patient is stable. Will be downgraded to telemetry. Case discussed with Dr. Jimbo Pritchard Chris PGY1
--- NOTE | 2017-08-12 18:54 | CP.PCM.PN ---
Subjective - Date & Time of Evaluation Date of Evaluation: 08/12/17 Time of Evaluation: 13:00 - Subjective Subjective: Patient was seen and examined.sitting on the chair and talking to his friend comfortable.No complain Objective - Vital Signs/Intake and Output Vital Signs (last 24 hours): Temp Pulse Resp BP Pulse Ox 98.5 F 60 10 L 138/93 H 98 08/12/17 04:00 08/12/17 12:35 08/12/17 12:35 08/12/17 07:26 08/12/17 12:35 Intake and Output: 08/12/17 08/12/17 06:59 18:59 Intake Total 600 800 Output Total 550 Balance 50 800 - Medications Medications: Current Medications Aspirin (Ecotrin) 81 mg PO DAILY [facility] Last Admin: 08/12/17 11:19 Dose: 81 mg Clopidogrel Bisulfate (Plavix) 75 mg PO DAILY [facility] Last Admin: 08/12/17 11:19 Dose: 75 mg Docusate Sodium (Colace) 100 mg PO TID [facility] Last Admin: 08/12/17 18:16 Dose: 100 mg Famotidine (Pepcid) 20 mg IVP Q12 [facility] Last Admin: 08/12/17 11:19 Dose: 20 mg Heparin Sodium (Porcine) (Heparin) 5,000 units SC Q8 [facility] Last Admin: 08/12/17 15:12 Dose: 5,000 units Sodium Chloride (Sodium Chloride 0.9%) 1,000 mls @ 50 mls/hr IV .Q20H [facility] Last Admin: 08/12/17 07:48 Dose: Not Given Mexiletine HCl (Mexiletine) 150 mg PO Q8 [facility] Last Admin: 08/12/17 15:13 Dose: 150 mg Potassium Chloride (K-Dur 20 Meq Er Tab) 40 meq PO ONCE [facility] Last Admin: 08/11/17 08:20 Dose: 40 meq Rosuvastatin Calcium (Crestor) 20 mg PO HS [facility] Last Admin: 08/11/17 21:16 Dose: 20 mg Sennosides (Senokot Tab) 8.6 mg PO HS [facility] Last Admin: 08/11/17 21:16 Dose: 8.6 mg - Labs Labs: 08/12/17 06:36 08/12/17 06:36 PT 11.5 SECONDS (9.7-12.2) 08/09/17 01:00 INR 1.0 08/09/17 01:00 APTT 44 SECONDS (21-34) H D 08/09/17 01:00 - Constitutional Appears: No Acute Distress - Head Exam Head Exam: ATRAUMATIC - Eye Exam Eye Exam: Normal appearance - ENT Exam ENT Exam: Mucous Membranes Moist - Respiratory Exam Respiratory Exam: Clear to Ausculation Bilateral - Cardiovascular Exam Cardiovascular Exam: REGULAR RHYTHM - GI/Abdominal Exam GI & Abdominal Exam: Soft, Normal Bowel Sounds - Extremities Exam Extremities Exam: Full ROM - Back Exam Back Exam: NORMAL INSPECTION - Neurological Exam Neurological Exam: Oriented x3 - Psychiatric Exam Psychiatric exam: Normal Mood - Skin Skin Exam: Dry Assessment and Plan - Assessment and Plan (Free Text) Plan: This is a 76 years old male with history of hypertension who had Cardiac Cath & PCI with MIRTA to Cx yesterday at [facility] [place] with Dr. Velez was brought in by BLS after having LOS and arrhythmia. Patient shocked twice and returned to rhythm. Patient given Mg and started on Amiodarone, but had recurrent VF arrythmia without pulse requiring defibrillation. Patient intubated in ED and Code Heart activated. Patient sent labor relations supervisor and started on Levophed. Patient found to have patent stent . Patient had another ventricular arrythmia requiring multiple defibrillation and code blue called. Patient started on Lidocaine. 1. S/P Code blue V-fib Multiple shock( shocked 2x by EMS/shocked 7x by ER/shocked 6x in labor relations supervisor = 15 total shocks) Continue Aspirin 81mg PO daily,Plavix 75mg PO daily Crestor 20mg PO HS,Levophed drip, off Lidocaine drip Off Transvenous pacing on Possible ICD NPO after breakfast on Tuesday for ICD at [facility] continue ICU care 2.acute respiratory failure Doing good on CPAP,awake and responsive 3. CAD,s/p stent continue asprin,plavix and crestor 4 Prophylactic: Pepcid 20mg IVP q12 Heparin 5,000 units SC q8
--- NOTE | 2017-08-12 21:52 | CP.PCM.PN ---
Subjective - Date & Time of Evaluation Date of Evaluation: 08/12/17 Time of Evaluation: 11:00 - Subjective Subjective: Patient seen and evaluated Comfortable No cardiac events noted Continue current medications For ICD at [facility] [place] on Tuesday Objective - Vital Signs/Intake and Output Vital Signs (last 24 hours): Temp Pulse Resp BP Pulse Ox 97.7 F 56 L 10 L 122/64 97 08/12/17 16:00 08/12/17 20:00 08/12/17 20:00 08/12/17 19:37 08/12/17 20:00 Intake and Output: 08/12/17 08/13/17 18:59 06:59 Intake Total 1350 0 Output Total 600 Balance 750 0 - Medications Medications: Current Medications Aspirin (Ecotrin) 81 mg PO DAILY [facility] Last Admin: 08/12/17 11:19 Dose: 81 mg Clopidogrel Bisulfate (Plavix) 75 mg PO DAILY [facility] Last Admin: 08/12/17 11:19 Dose: 75 mg Docusate Sodium (Colace) 100 mg PO TID [facility] Last Admin: 08/12/17 18:16 Dose: 100 mg Famotidine (Pepcid) 20 mg IVP Q12 [facility] Last Admin: 08/12/17 21:32 Dose: 20 mg Heparin Sodium (Porcine) (Heparin) 5,000 units SC Q8 [facility] Last Admin: 08/12/17 21:32 Dose: 5,000 units Sodium Chloride (Sodium Chloride 0.9%) 1,000 mls @ 50 mls/hr IV .Q20H [facility] Last Admin: 08/12/17 07:48 Dose: Not Given Mexiletine HCl (Mexiletine) 150 mg PO Q8 [facility] Last Admin: 08/12/17 21:32 Dose: 150 mg Potassium Chloride (K-Dur 20 Meq Er Tab) 40 meq PO ONCE [facility] Last Admin: 08/11/17 08:20 Dose: 40 meq Rosuvastatin Calcium (Crestor) 20 mg PO HS [facility] Last Admin: 08/12/17 21:32 Dose: 20 mg Sennosides (Senokot Tab) 8.6 mg PO HS [facility] Last Admin: 08/12/17 21:32 Dose: 8.6 mg - Labs Labs: 08/12/17 06:36 08/12/17 06:36 PT 11.5 SECONDS (9.7-12.2) 08/09/17 01:00 INR 1.0 08/09/17 01:00 APTT 44 SECONDS (21-34) H D 08/09/17 01:00
[2017-08-13] MEDS: Sodium Chloride 0.9% 1,000 ML IV SCH (00:30)
[2017-08-13 06:47] LABS: ALB/GLOB RATIO 1.5 (1.0-2.1); ALKALINE PHOSPHATASE 66 U/L (38-126); ALT/SGPT 44 U/L (21-72); AST/SGOT 25 U/L (17-59); BILIRUBIN,TOTAL 0.9 mg/dL (0.2-1.3); BLOOD UREA NITROGEN 8 mg/dL (9-20); CALCIUM 8.5 mg/dl (8.6-10.4); CARBON DIOXIDE 25 mmol/L (22-30); CHLORIDE 105 mmol/L (98-107); GFR AFRICAN-AMERICAN > 60; GLUCOSE,RANDOM 84 mg/dL (75-110); MAGNESIUM 1.8 mg/dL (1.6-2.3); POTASSIUM 3.6 mmol/L (3.6-5.2); SODIUM 138 mmol/L (132-148); TOTAL PROTEIN 5.4 g/dL (6.3-8.3)
--- NOTE | 2017-08-13 12:20 | CP.PCM.PN ---
Subjective - Date & Time of Evaluation Date of Evaluation: 08/13/17 Time of Evaluation: 09:30 - Subjective Subjective: Seen and examined,No complain,denies pain Objective - Vital Signs/Intake and Output Vital Signs (last 24 hours): Temp Pulse Resp BP Pulse Ox 98 F 89 20 128/78 100 08/13/17 11:33 08/13/17 11:33 08/13/17 11:33 08/13/17 11:33 08/13/17 11:33 Intake and Output: 08/13/17 08/13/17 06:59 18:59 Intake Total 200 Output Total 1050 Balance -850 - Medications Medications: Current Medications Aspirin (Ecotrin) 81 mg PO DAILY [facility] Last Admin: 08/13/17 09:53 Dose: 81 mg Clopidogrel Bisulfate (Plavix) 75 mg PO DAILY [facility] Last Admin: 08/13/17 09:52 Dose: 75 mg Docusate Sodium (Colace) 100 mg PO TID [facility] Last Admin: 08/13/17 09:53 Dose: 100 mg Famotidine (Pepcid) 20 mg IVP Q12 [facility] Last Admin: 08/13/17 09:52 Dose: 20 mg Heparin Sodium (Porcine) (Heparin) 5,000 units SC Q8 [facility] Last Admin: 08/13/17 05:12 Dose: 5,000 units Sodium Chloride (Sodium Chloride 0.9%) 1,000 mls @ 50 mls/hr IV .Q20H [facility] Last Admin: 08/13/17 00:30 Dose: Not Given Mexiletine HCl (Mexiletine) 150 mg PO Q8 [facility] Last Admin: 08/13/17 05:13 Dose: 150 mg Potassium Chloride (K-Dur 20 Meq Er Tab) 40 meq PO ONCE [facility] Last Admin: 08/11/17 08:20 Dose: 40 meq Rosuvastatin Calcium (Crestor) 20 mg PO HS [facility] Last Admin: 08/12/17 21:32 Dose: 20 mg Sennosides (Senokot Tab) 8.6 mg PO HS [facility] Last Admin: 08/12/17 21:32 Dose: 8.6 mg - Labs Labs: 08/12/17 06:36 08/13/17 06:26 PT 11.5 SECONDS (9.7-12.2) 08/09/17 01:00 INR 1.0 08/09/17 01:00 APTT 44 SECONDS (21-34) H D 08/09/17 01:00 - Constitutional Appears: No Acute Distress - Head Exam Head Exam: NORMAL INSPECTION - Eye Exam Eye Exam: Normal appearance - ENT Exam ENT Exam: Mucous Membranes Moist - Neck Exam Neck Exam: Full ROM - Respiratory Exam Respiratory Exam: Clear to Ausculation Bilateral, NORMAL BREATHING PATTERN - Cardiovascular Exam Cardiovascular Exam: REGULAR RHYTHM - GI/Abdominal Exam GI & Abdominal Exam: Soft, Normal Bowel Sounds - Extremities Exam Extremities Exam: Full ROM - Back Exam Back Exam: NORMAL INSPECTION - Neurological Exam Neurological Exam: Oriented x3 - Psychiatric Exam Psychiatric exam: Normal Mood - Skin Skin Exam: Dry Assessment and Plan - Assessment and Plan (Free Text) Plan: This is a 76 years old male with history of hypertension who had Cardiac Cath & PCI with MIRTA to Cx yesterday at [facility] [place] with Dr. Velez was brought in by BLS after having LOS and arrhythmia. Patient shocked twice and returned to rhythm. Patient given Mg and started on Amiodarone, but had recurrent VF arrythmia without pulse requiring defibrillation. Patient intubated in ED and Code Heart activated. Patient sent label printer and started on Levophed. Patient found to have patent stent . Patient had another ventricular arrythmia requiring multiple defibrillation and code blue called. Patient started on Lidocaine. 1. S/P Code blue V-fib Multiple shock( shocked 2x by EMS/shocked 7x by ER/shocked 6x in label printer = 15 total shocks) Continue Aspirin 81mg PO daily,Plavix 75mg PO daily Crestor 20mg PO HS,Levophed drip, off Lidocaine drip Off Transvenous pacing on NPO after breakfast on Tuesday for ICD at [facility] continue ICU monitoring 2.acute respiratory failure Doing good on CPAP,awake and responsive 3. CAD,s/p stent continue asprin,plavix and crestor 4 Prophylactic: Pepcid 20mg IVP q12 Heparin 5,000 units SC q8
[2017-08-13] MEDS ORDERED: Magnesium Oxide 400 mg Tab UD PO SCH (15:00)
[2017-08-13] MEDS ORDERED: Potassium Chloride 20 mEq ER Tab PO ONE (15:00)
[2017-08-13] MEDS: Magnesium Oxide 400 mg Tab UD PO SCH (15:36)
--- NOTE | 2017-08-13 16:52 | CARD ---
APPROVED REPORT EKG Measurement Heart [id number] ID [id number] <Conclusion> Normal sinus rhythm Low voltage QRS Borderline ECG
--- NOTE | 2017-08-13 18:43 | CARDCATH ---
PROCEDURE DATE: 08/09/2017 PROCEDURES: 1. Coronary angiogram. 2. LV angiogram. 3. Aortic root angiogram. 4. Transvenous pacemaker placement. 5. Radiological supervision and radiological interpretation of the coronary angiogram and LV angiogram. CLINICAL INDICATIONS: 1. Cardiac arrest, status post multiple shocks. 2. Coronary artery disease, status post left circumflex stent. 3. Hypertension. 4. Hyperlipidemia. 5. Obesity. REFERRING PHYSICIAN: Toñito Casiano MD PERFORMING PHYSICIAN: Denilson Velez MD PROCEDURE: After informed consent, the patient was prepped and draped in the usual sterile fashion. A 2% lidocaine was given in the right groin for local anesthesia. Using micropuncture technique, #6-Argentine sheath was introduced into the right common femoral artery. A #7-Argentine sheath was introduced into right common femoral vein. Transvenous pacemaker placed in the right ventricle via the #7-Argentine sheath. JL4 #6-Argentine diagnostic catheter engaged in the left main coronary artery. Contrast injected and left coronary angiogram was performed. JR4 #6-Argentine diagnostic catheter engaged into right coronary artery. Contrast injected and right coronary angiogram was performed. Pigtail catheter inserted into left ventricle across the aortic valve. Contrast injected and LV angiography was performed. EDP and pressure gradient across aortic valve were measured. Pigtail catheter pulled back into aorta. Contrast injected and aortic root angiogram was performed. FINDINGS: 1. Left main coronary artery is patent. 2. Prior LAD stent is patent. Diagonal branches are patent. 3. Prior left circumflex stent is patent. Obtuse marginal branches are patent. 4. Right coronary artery is patent. 5. LV ejection fraction is approximately 60%. No wall motion abnormalities noted. EDP is 20. No gradient across the aortic valve. 6. Aortic root angiogram demonstrates mildly dilated aortic root. No aortic insufficiency noted. IMPRESSION: 1. Patent coronaries. 2. Normal left ventricular systolic function. The patient was admitted today with multiple shocks. The patient was started on lidocaine drip and overdrive pacing was performed. The patient will be transferred to intensive care unit for further management. Denilson Velez MD [facility] # [id number]
--- NOTE | 2017-08-13 22:19 | CP.PCM.PN ---
Subjective - Date & Time of Evaluation Date of Evaluation: 08/13/17 Time of Evaluation: 10:35 - Subjective Subjective: Patient seen and evaluated Denies chest pain and dyspnea K and Mag replaced OOB to ambulate Transfer to [facility] [place] Tuesday for ICD Patient signed EMTALA Objective - Vital Signs/Intake and Output Vital Signs (last 24 hours): Temp Pulse Resp BP Pulse Ox 98 F 55 L 19 128/78 99 08/13/17 20:00 08/13/17 20:00 08/13/17 20:00 08/13/17 11:33 08/13/17 20:00 - Medications Medications: Current Medications Aspirin (Ecotrin) 81 mg PO DAILY [facility] Last Admin: 08/13/17 09:53 Dose: 81 mg Clopidogrel Bisulfate (Plavix) 75 mg PO DAILY [facility] Last Admin: 08/13/17 09:52 Dose: 75 mg Docusate Sodium (Colace) 100 mg PO TID [facility] Last Admin: 08/13/17 17:44 Dose: 100 mg Famotidine (Pepcid) 20 mg IVP Q12 [facility] Last Admin: 08/13/17 21:20 Dose: 20 mg Heparin Sodium (Porcine) (Heparin) 5,000 units SC Q8 [facility] Last Admin: 08/13/17 21:19 Dose: 5,000 units Magnesium Oxide (Mag-Ox) 400 mg PO DAILY [facility] Stop: 08/15/17 10:00 Last Admin: 08/13/17 15:36 Dose: 400 mg Mexiletine HCl (Mexiletine) 150 mg PO Q8 [facility] Last Admin: 08/13/17 21:21 Dose: 150 mg Potassium Chloride (K-Dur 20 Meq Er Tab) 40 meq PO ONCE [facility] Last Admin: 08/11/17 08:20 Dose: 40 meq Rosuvastatin Calcium (Crestor) 20 mg PO HS [facility] Last Admin: 08/13/17 21:22 Dose: 20 mg Sennosides (Senokot Tab) 8.6 mg PO HS [facility] Last Admin: 08/13/17 21:21 Dose: 8.6 mg - Labs Labs: 08/12/17 06:36 08/13/17 06:26 PT 11.5 SECONDS (9.7-12.2) 08/09/17 01:00 INR 1.0 08/09/17 01:00 APTT 44 SECONDS (21-34) H D 08/09/17 01:00
[2017-08-14 06:11] LABS: BASO # 0.1 K/uL (0.0-0.2); EOS # 0.2 K/uL (0.0-0.7); EOS % 3.1 % (0.0-4.0); HEMATOCRIT 41.5 % (35.0-51.0); LYMPH # 1.4 K/uL (1.0-4.3); LYMPH % 23.3 % (20.0-40.0); MEAN CORPUSCULAR HEMOGLOBIN 32.7 pg (27.0-31.0); MEAN CORPUSCULAR HGB CONC 33.7 g/dL (33.0-37.0); MONO # 0.7 K/uL (0.0-0.8); MONO % 11.9 % (0.0-10.0); NRBC % 0.1 % (0.0-2.0); RED CELL DISTRIBUTION WIDTH 13.3 % (11.5-14.5); WHITE BLOOD COUNT 6.2 K/uL (4.8-10.8)
[2017-08-14 06:16] LABS: INR 1.1
[2017-08-14 06:37] LABS: ALKALINE PHOSPHATASE 69 U/L (38-126); ALT/SGPT 46 U/L (21-72); AST/SGOT 35 U/L (17-59); BILIRUBIN,TOTAL 0.7 mg/dL (0.2-1.3); BLOOD UREA NITROGEN 8 mg/dL (9-20); CALCIUM 8.9 mg/dl (8.6-10.4); CARBON DIOXIDE 24 mmol/L (22-30); CHLORIDE 104 mmol/L (98-107); GFR AFRICAN-AMERICAN > 60; GLUCOSE,RANDOM 84 mg/dL (75-110); MAGNESIUM 1.9 mg/dL (1.6-2.3); PHOSPHOROUS 3.5 mg/dL (2.5-4.5); POTASSIUM 3.6 mmol/L (3.6-5.2); SODIUM 135 mmol/L (132-148); TOTAL PROTEIN 6.6 g/dL (6.3-8.3)
--- NOTE | 2017-08-14 09:14 | CP.PCM.PN ---
Subjective - Date & Time of Evaluation Date of Evaluation: 08/14/17 Time of Evaluation: 08:35 - Subjective Subjective: Seen and examined,no complain,sitting on bed comfortable,denies pain Going to [facility] on Tuesday for ICD Objective - Vital Signs/Intake and Output Vital Signs (last 24 hours): Temp Pulse Resp BP Pulse Ox 98.6 F 54 L 7 L 134/87 98 08/14/17 08:00 08/14/17 07:00 08/14/17 07:00 08/14/17 05:23 08/14/17 07:00 Intake and Output: 08/14/17 08/14/17 06:59 18:59 Intake Total 200 Output Total 400 Balance -200 - Medications Medications: Current Medications Aspirin (Ecotrin) 81 mg PO DAILY [facility] Last Admin: 08/13/17 09:53 Dose: 81 mg Clopidogrel Bisulfate (Plavix) 75 mg PO DAILY [facility] Last Admin: 08/13/17 09:52 Dose: 75 mg Docusate Sodium (Colace) 100 mg PO TID [facility] Last Admin: 08/13/17 17:44 Dose: 100 mg Famotidine (Pepcid) 20 mg IVP Q12 [facility] Last Admin: 08/13/17 21:20 Dose: 20 mg Heparin Sodium (Porcine) (Heparin) 5,000 units SC Q8 [facility] Last Admin: 08/14/17 05:22 Dose: 5,000 units Magnesium Oxide (Mag-Ox) 400 mg PO DAILY [facility] Stop: 08/15/17 10:00 Last Admin: 08/13/17 15:36 Dose: 400 mg Mexiletine HCl (Mexiletine) 150 mg PO Q8 [facility] Last Admin: 08/14/17 05:22 Dose: 150 mg Potassium Chloride (K-Dur 20 Meq Er Tab) 40 meq PO ONCE [facility] Last Admin: 08/11/17 08:20 Dose: 40 meq Rosuvastatin Calcium (Crestor) 20 mg PO HS [facility] Last Admin: 08/13/17 21:22 Dose: 20 mg Sennosides (Senokot Tab) 8.6 mg PO HS [facility] Last Admin: 08/13/17 21:21 Dose: 8.6 mg - Labs Labs: 08/14/17 06:05 08/14/17 06:05 PT 12.4 SECONDS (9.7-12.2) H 08/14/17 06:05 INR 1.1 08/14/17 06:05 APTT 34 SECONDS (21-34) 08/14/17 06:05 - Constitutional Appears: Non-toxic - Head Exam Head Exam: NORMOCEPHALIC - Eye Exam Pupil Exam: NORMAL ACCOMODATION - ENT Exam ENT Exam: Mucous Membranes Moist - Neck Exam Neck Exam: Full ROM - Respiratory Exam Respiratory Exam: Clear to Ausculation Bilateral, NORMAL BREATHING PATTERN - Cardiovascular Exam Cardiovascular Exam: REGULAR RHYTHM - GI/Abdominal Exam GI & Abdominal Exam: Soft, Normal Bowel Sounds - Extremities Exam Extremities Exam: Full ROM - Back Exam Back Exam: NORMAL INSPECTION - Neurological Exam Neurological Exam: Oriented x3 - Psychiatric Exam Psychiatric exam: Normal Affect - Skin Skin Exam: Normal Color, Warm Assessment and Plan - Assessment and Plan (Free Text) Assessment: This is a 76 years old male with history of hypertension who had Cardiac Cath & PCI with MIRTA to Cx yesterday at [facility] with Dr. Velez was brought in by BLS after having LOS and arrhythmia. Patient shocked twice and returned to rhythm. Patient given Mg and started on Amiodarone, but had recurrent VF arrythmia without pulse requiring defibrillation. Patient intubated in ED and Code Heart activated. Patient sent labor conciliator and started on Levophed. Patient found to have patent stent . Patient had another ventricular arrythmia requiring multiple defibrillation and code blue called. Patient started on Lidocaine. Now he off vent,NSR on Mexiletin,asprin,plavix and Statin.Going for ICD Plan: 1. S/P Code blue V-fib Multiple shock( shocked 2x by EMS/shocked 7x by ER/shocked 6x in labor conciliator = 15 total shocks) Continue Aspirin 81mg PO daily,Plavix 75mg PO daily Crestor 20mg PO HS, off Lidocaine drip Off Transvenous pacing ,On Mexiletin NPO after breakfast on Tuesday for ICD at [facility] continue ICU monitoring 2.acute respiratory failure Resolved 3. CAD,s/p stent continue asprin,plavix and crestor 4 Prophylactic: Pepcid 20mg IVP q12 Heparin 5,000 units SC q8
[2017-08-14] MEDS: Magnesium Oxide 400 mg Tab UD PO SCH (10:03)
[2017-08-14] MEDS ORDERED: Potassium Chloride 20 mEq ER Tab PO ONE (15:00)
[2017-08-14] MEDS: Potassium Chloride 20 mEq ER Tab PO SCH ×2 (17:41→17:42)
--- NOTE | 2017-08-14 19:45 | CP.PCM.PN ---
Subjective - Date & Time of Evaluation Date of Evaluation: 08/14/17 Time of Evaluation: 19:44 - Subjective Subjective: Patient seen and evaluated Denies chest pain and dyspnea No more additional v fib episodes For ICD tomorrow orders written Objective - Vital Signs/Intake and Output Vital Signs (last 24 hours): Temp Pulse Resp BP Pulse Ox 98 F 57 L 10 L 130/84 98 08/14/17 16:00 08/14/17 19:22 08/14/17 19:22 08/14/17 19:22 08/14/17 10:00 Intake and Output: 08/14/17 08/15/17 18:59 06:59 Intake Total 400 Output Total 600 Balance -200 - Medications Medications: Current Medications Aspirin (Ecotrin) 81 mg PO DAILY [facility] Last Admin: 08/14/17 10:03 Dose: 81 mg Clopidogrel Bisulfate (Plavix) 75 mg PO DAILY [facility] Last Admin: 08/14/17 10:03 Dose: 75 mg Docusate Sodium (Colace) 100 mg PO TID [facility] Last Admin: 08/14/17 17:41 Dose: 100 mg Famotidine (Pepcid) 20 mg IVP Q12 [facility] Last Admin: 08/14/17 10:03 Dose: 20 mg Heparin Sodium (Porcine) (Heparin) 5,000 units SC Q8 [facility] Last Admin: 08/14/17 14:04 Dose: 5,000 units Magnesium Oxide (Mag-Ox) 400 mg PO DAILY [facility] Stop: 08/15/17 10:00 Last Admin: 08/14/17 10:03 Dose: 400 mg Mexiletine HCl (Mexiletine) 150 mg PO Q8 [facility] Last Admin: 08/14/17 14:04 Dose: 150 mg Potassium Chloride (K-Dur 20 Meq Er Tab) 40 meq PO ONCE [facility] Last Admin: 08/14/17 17:41 Dose: 40 meq Potassium Chloride (K-Dur 20 Meq Er Tab) 40 meq PO BRK [facility] Last Admin: 08/14/17 17:42 Dose: 40 meq Rosuvastatin Calcium (Crestor) 20 mg PO HS [facility] Last Admin: 08/13/17 21:22 Dose: 20 mg Sennosides (Senokot Tab) 8.6 mg PO HS [facility] Last Admin: 08/13/17 21:21 Dose: 8.6 mg - Labs Labs: 08/14/17 06:05 08/14/17 06:05 PT 12.4 SECONDS (9.7-12.2) H 08/14/17 06:05 INR 1.1 08/14/17 06:05 APTT 34 SECONDS (21-34) 08/14/17 06:05
[2017-08-15 06:43] LABS: HEMATOCRIT 41.6 % (35.0-51.0); MEAN CELL VOLUME 96.3 fL (80.0-94.0); MEAN CORPUSCULAR HEMOGLOBIN 33.7 pg (27.0-31.0); RED CELL DISTRIBUTION WIDTH 13.3 % (11.5-14.5); WHITE BLOOD COUNT 5.9 K/uL (4.8-10.8)
[2017-08-15 07:20] LABS: ALB/GLOB RATIO 1.5 (1.0-2.1); ALKALINE PHOSPHATASE 65 U/L (38-126); ALT/SGPT 45 U/L (21-72); AST/SGOT 41 U/L (17-59); BILIRUBIN,TOTAL 0.9 mg/dL (0.2-1.3); BLOOD UREA NITROGEN 9 mg/dL (9-20); CALCIUM 9.1 mg/dl (8.6-10.4); CARBON DIOXIDE 24 mmol/L (22-30); CHLORIDE 103 mmol/L (98-107); GFR AFRICAN-AMERICAN > 60; GLUCOSE,RANDOM 87 mg/dL (75-110); POTASSIUM 4.5 mmol/L (3.6-5.2); SODIUM 135 mmol/L (132-148); TOTAL PROTEIN 5.8 g/dL (6.3-8.3)
[2017-08-15] MEDS: Potassium Chloride 20 mEq ER Tab PO SCH (08:00)
[2017-08-15] MEDS: Magnesium Oxide 400 mg Tab UD PO SCH (10:00)
--- NOTE | 2017-08-15 17:01 | CP.PCM.PN ---
<Malinda Thurston - Last Filed: 08/15/17 17:37> Subjective - Date & Time of Evaluation Date of Evaluation: 08/15/17 Time of Evaluation: 16:59 - Subjective Subjective: Progress note for Dr. Aquiles Choi Patient went for defibrillator placement to [facility] [facility] today at noon. Patient denied chest pain, shortness of breath, constipation, diarrhea, Objective - Vital Signs/Intake and Output Vital Signs (last 24 hours): Temp Pulse Resp BP Pulse Ox 98.1 F 54 L 20 115/77 98 08/15/17 12:00 08/15/17 13:00 08/15/17 13:00 08/15/17 12:36 08/15/17 00:00 Intake and Output: 08/15/17 08/15/17 06:59 18:59 Intake Total 200 Output Total 400 Balance -200 - Medications Medications: Current Medications Aspirin (Ecotrin) 81 mg PO DAILY [facility] Last Admin: 08/15/17 10:00 Dose: Not Given Clopidogrel Bisulfate (Plavix) 75 mg PO DAILY [facility] Last Admin: 08/15/17 10:00 Dose: Not Given Docusate Sodium (Colace) 100 mg PO TID [facility] Last Admin: 08/15/17 13:33 Dose: Not Given Famotidine (Pepcid) 20 mg IVP Q12 [facility] Last Admin: 08/15/17 10:00 Dose: Not Given Mexiletine HCl (Mexiletine) 150 mg PO Q8 [facility] Last Admin: 08/15/17 13:36 Dose: Not Given Potassium Chloride (K-Dur 20 Meq Er Tab) 40 meq PO ONCE [facility] Last Admin: 08/14/17 17:41 Dose: 40 meq Potassium Chloride (K-Dur 20 Meq Er Tab) 40 meq PO BRK [facility] Last Admin: 08/15/17 08:00 Dose: Not Given Rosuvastatin Calcium (Crestor) 20 mg PO HS [facility] Last Admin: 08/14/17 21:47 Dose: 20 mg Sennosides (Senokot Tab) 8.6 mg PO HS [facility] Last Admin: 08/14/17 21:47 Dose: 8.6 mg - Labs Labs: 08/15/17 06:20 08/15/17 06:20 PT 12.4 SECONDS (9.7-12.2) H 08/14/17 06:05 INR 1.1 08/14/17 06:05 APTT 34 SECONDS (21-34) 08/14/17 06:05 - Constitutional Appears: Non-toxic - Head Exam Head Exam: NORMAL INSPECTION - Eye Exam Eye Exam: EOMI, Normal appearance - ENT Exam ENT Exam: Mucous Membranes Moist - Neck Exam Neck Exam: Full ROM - Cardiovascular Exam Cardiovascular Exam: REGULAR RHYTHM, +S1, +S2. absent: Diastolic murmur - GI/Abdominal Exam GI & Abdominal Exam: Soft. absent: Tenderness - Extremities Exam Extremities Exam: Full ROM. absent: Pedal Edema - Neurological Exam Neurological Exam: Alert, Normal Gait, Oriented x3 - Psychiatric Exam Psychiatric exam: Normal Affect, Normal Mood - Skin Skin Exam: Dry Assessment and Plan - Assessment and Plan (Free Text) Assessment: 76 yo M with past medical history of cardiac cath and PCI with MIRTA at [facility] [place], [place] Patient is going for ICD POD#0 CAD s/p stent continue ASA 81 mg POQD Plavix 75mg POQD Arrythmia Mexiletin 150mg POQ8 (antiarrhythmic) f/u ICD placement, and order heart healthy diet, low salt/low cholesterol constipation Colace 100mg POTID Sennosides A and B 8.6mg POQHS Hyokalemia, repleted Prophylaxis Pepcid 20mg IVPQ12 DVT prophylaxis: patient is on anticoagulation s/p MIRTA placement discussed with Dr. Aquiles Thurston DO PGY1 <Aquiles Choi - Last Filed: 08/15/17 20:23> Objective - Vital Signs/Intake and Output Vital Signs (last 24 hours): Temp Pulse Resp BP Pulse Ox 98.1 F 54 L 20 115/77 98 08/15/17 12:00 08/15/17 13:00 08/15/17 13:00 08/15/17 12:36 08/15/17 00:00 - Medications Medications: Current Medications Aspirin (Ecotrin) 81 mg PO DAILY [facility] Last Admin: 08/15/17 10:00 Dose: Not Given Clopidogrel Bisulfate (Plavix) 75 mg PO DAILY [facility] Last Admin: 08/15/17 10:00 Dose: Not Given Docusate Sodium (Colace) 100 mg PO TID [facility] Last Admin: 08/15/17 13:33 Dose: Not Given Famotidine (Pepcid) 20 mg IVP Q12 [facility] Last Admin: 08/15/17 10:00 Dose: Not Given Mexiletine HCl (Mexiletine) 150 mg PO Q8 [facility] Last Admin: 08/15/17 13:36 Dose: Not Given Potassium Chloride (K-Dur 20 Meq Er Tab) 40 meq PO ONCE [facility] Last Admin: 08/14/17 17:41 Dose: 40 meq Potassium Chloride (K-Dur 20 Meq Er Tab) 40 meq PO BRK [facility] Last Admin: 08/15/17 08:00 Dose: Not Given Rosuvastatin Calcium (Crestor) 20 mg PO HS [facility] Last Admin: 08/14/17 21:47 Dose: 20 mg Sennosides (Senokot Tab) 8.6 mg PO HS [facility] Last Admin: 08/14/17 21:47 Dose: 8.6 mg - Labs Labs: 08/15/17 06:20 08/15/17 06:20 PT 12.4 SECONDS (9.7-12.2) H 08/14/17 06:05 INR 1.1 08/14/17 06:05 APTT 34 SECONDS (21-34) 08/14/17 06:05 Attending/Attestation - Attestation I have personally seen and examined this patient.: Yes I have fully participated in the care of the patient.: Yes I have reviewed all pertinent clinical information, including history, physical exam and plan: Yes Notes (Text): 08/15/17 20:20 Patient was seen and examined at 8:50 AM 08/15/17 ICU Bed #3 Exam, Assessment and Plan were thoroughly gone over with the resident. Assessments: 1). S/P Code Blue/Vfib: Mexiletene 2). Hx Acute Respiratory Failure 3). CAD S/P Stent 4). Systolic Heart Failure: EF estimated at 40 %. Will need to speak with Cardiology as patient is NOT on an ACEI and NOT on BetaBlocker Patient is for ICD placement by Cardiology Dr. Velez at [facility] [facility] at 12 PM Aquiles Choi D.O.
--- NOTE | 2017-08-15 17:20 | CP.PCM.CON ---
Past Patient History - Past Medical History & Family History Past Medical History?: Yes - Past Social History Smoking Status: Unknown If Ever Smoked - CARDIAC Hx Hypertension: Yes - PULMONARY Hx Respiratory Disorders: No - NEUROLOGICAL Hx Neurological Disorder: No - HEENT Hx HEENT Problems: No - RENAL Hx Chronic Kidney Disease: No - ENDOCRINE/METABOLIC Hx Endocrine Disorders: Yes Hx Diabetes Mellitus Type 2: Yes - HEMATOLOGICAL/ONCOLOGICAL Hx Blood Disorders: No - INTEGUMENTARY Hx Dermatological Problems: No - MUSCULOSKELETAL/RHEUMATOLOGICAL Hx Musculoskeletal Disorders: No - GASTROINTESTINAL Hx Gastrointestinal Disorders: Yes - GENITOURINARY/GYNECOLOGICAL Hx Genitourinary Disorders: No - PSYCHIATRIC Hx Substance Use: No - SURGICAL HISTORY Hx Coronary Stent: Yes - ANESTHESIA Hx Anesthesia: Yes Meds Allergies/Adverse Reactions: Allergies Allergy/AdvReac Type Severity Reaction Status Date / Time No Known Allergies Allergy Verified 08/08/17 21:43 - Medications Medications: Current Medications Aspirin (Ecotrin) 81 mg PO DAILY [facility] Last Admin: 08/15/17 10:00 Dose: Not Given Clopidogrel Bisulfate (Plavix) 75 mg PO DAILY [facility] Last Admin: 08/15/17 10:00 Dose: Not Given Docusate Sodium (Colace) 100 mg PO TID [facility] Last Admin: 08/15/17 13:33 Dose: Not Given Famotidine (Pepcid) 20 mg IVP Q12 [facility] Last Admin: 08/15/17 10:00 Dose: Not Given Mexiletine HCl (Mexiletine) 150 mg PO Q8 [facility] Last Admin: 08/15/17 13:36 Dose: Not Given Potassium Chloride (K-Dur 20 Meq Er Tab) 40 meq PO ONCE [facility] Last Admin: 08/14/17 17:41 Dose: 40 meq Potassium Chloride (K-Dur 20 Meq Er Tab) 40 meq PO BRK [facility] Last Admin: 08/15/17 08:00 Dose: Not Given Rosuvastatin Calcium (Crestor) 20 mg PO HS [facility] Last Admin: 08/14/17 21:47 Dose: 20 mg Sennosides (Senokot Tab) 8.6 mg PO HS [facility] Last Admin: 08/14/17 21:47 Dose: 8.6 mg Results - Vital Signs Recent Vital Signs: Last Vital Signs Temp 98.1 F 08/15/17 12:00 Pulse 54 L 08/15/17 13:00 Resp 20 08/15/17 13:00 BP 115/77 08/15/17 12:36 Pulse Ox 98 08/15/17 00:00 - Labs Result Diagrams: 08/15/17 06:20 08/15/17 06:20 Labs: Laboratory Results - last 24 hr 08/15/17 08/15/17 06:20 06:20 WBC 5.9 RBC 4.32 L Hgb 14.5 Hct 41.6 MCV 96.3 H MCH 33.7 H MCHC 35.0 RDW 13.3 Plt Count 171 MPV 9.0 Sodium 135 Potassium 4.5 Chloride 103 Carbon Dioxide 24 Anion Gap 11 BUN 9 Creatinine 0.9 Est GFR ( Amer) > 60 Est GFR (Non-Af Amer) > 60 Random Glucose 87 Calcium 9.1 Magnesium 2.0 Total Bilirubin 0.9 AST 41 ALT 45 Alkaline Phosphatase 65 Total Protein 5.8 L Albumin 3.5 Globulin 2.3 Albumin/Globulin Ratio 1.5
[2017-08-16] MEDS: Potassium Chloride 20 mEq ER Tab PO SCH ×4 (08:25→09:52)
--- NOTE | 2017-08-16 09:54 | CP.PCM.PN ---
<Malinda Thurston - Last Filed: 08/16/17 16:23> Subjective - Date & Time of Evaluation Date of Evaluation: 08/16/17 Time of Evaluation: 09:51 - Subjective Subjective: Progress note for Dr. Choi Patient seen an examined at [facility]. Patient tolerated the procedure well at [facility]. Patient denies fever, chills, nausea, abdominal pain. patient states hes hungry Objective - Vital Signs/Intake and Output Vital Signs (last 24 hours): Temp Pulse Resp BP Pulse Ox 98.5 F 64 24 130/85 93 L 08/16/17 04:00 08/16/17 04:00 08/16/17 04:00 08/16/17 02:12 08/16/17 04:00 Intake and Output: 08/16/17 08/16/17 06:59 18:59 Intake Total 150 Output Total 300 Balance -150 - Medications Medications: Current Medications Aspirin (Ecotrin) 81 mg PO DAILY [facility] Last Admin: 08/16/17 09:48 Dose: 81 mg Clopidogrel Bisulfate (Plavix) 75 mg PO DAILY [facility] Last Admin: 08/16/17 09:47 Dose: 75 mg Docusate Sodium (Colace) 100 mg PO TID [facility] Last Admin: 08/16/17 09:48 Dose: 100 mg Famotidine (Pepcid) 20 mg IVP Q12 [facility] Last Admin: 08/16/17 09:47 Dose: 20 mg Mexiletine HCl (Mexiletine) 150 mg PO Q8 [facility] Last Admin: 08/16/17 06:45 Dose: 150 mg Potassium Chloride (K-Dur 20 Meq Er Tab) 40 meq PO ONCE [facility] Last Admin: 08/16/17 09:47 Dose: 40 meq Potassium Chloride (K-Dur 20 Meq Er Tab) 40 meq PO BRK [facility] Last Admin: 08/15/17 08:00 Dose: Not Given Rosuvastatin Calcium (Crestor) 20 mg PO HS [facility] Last Admin: 08/15/17 22:30 Dose: 20 mg Sennosides (Senokot Tab) 8.6 mg PO HS [facility] Last Admin: 08/15/17 22:38 Dose: 8.6 mg - Labs Labs: 08/15/17 06:20 08/15/17 06:20 PT 12.4 SECONDS (9.7-12.2) H 08/14/17 06:05 INR 1.1 08/14/17 06:05 APTT 34 SECONDS (21-34) 08/14/17 06:05 - Constitutional Appears: Non-toxic - Head Exam Head Exam: NORMAL INSPECTION - Eye Exam Eye Exam: EOMI, Normal appearance - ENT Exam ENT Exam: Mucous Membranes Moist - Neck Exam Neck Exam: Full ROM - Respiratory Exam Respiratory Exam: Decreased Breath Sounds, NORMAL BREATHING PATTERN - Cardiovascular Exam Cardiovascular Exam: REGULAR RHYTHM, +S1, +S2 - GI/Abdominal Exam GI & Abdominal Exam: Soft, Normal Bowel Sounds - Extremities Exam Extremities Exam: Full ROM - Neurological Exam Neurological Exam: Alert, Awake - Skin Skin Exam: Dry, Warm Additional comments: site of ICD is tender to palpation. no hematoma, erythema dressings in place. c/d/i Assessment and Plan - Assessment and Plan (Free Text) Assessment: 76 yo M with past medical history of cardiac cath and PCI with MIRTA at [facility] [place], [place] Patient is going for ICD POD#1 Incentive spirometer ordered for bedside PT therapy eval and treat ordered for tomorrow. Patient is likely to be discharged tomorrow after defibrillator tested tomorrow CAD s/p stent continue ASA 81 mg POQD Plavix 75mg POQD Arrythmia Mexiletin 150mg POQ8 (antiarrhythmic) f/u ICD placement constipation Colace 100mg POTID Sennosides A and B 8.6mg POQHS Hyokalemia, repleted Prophylaxis Pepcid 20mg IVPQ12 DVT prophylaxis: patient is on anticoagulation s/p MIRTA placement Diet: heart healthy diet, low salt/low cholesterol diet discussed with Dr. Aquiles Thurston DO PGY1 <Aquiles Choi - Last Filed: 08/16/17 18:30> Objective - Vital Signs/Intake and Output Vital Signs (last 24 hours): Temp Pulse Resp BP Pulse Ox 98.4 F 64 18 142/80 99 08/16/17 12:00 08/16/17 12:00 08/16/17 12:00 08/16/17 12:00 08/16/17 12:00 Intake and Output: 08/16/17 08/16/17 06:59 18:59 Intake Total 150 Output Total 300 Balance -150 - Medications Medications: Current Medications Aspirin (Ecotrin) 81 mg PO DAILY [facility] Last Admin: 08/16/17 09:48 Dose: 81 mg Clopidogrel Bisulfate (Plavix) 75 mg PO DAILY [facility] Last Admin: 08/16/17 09:47 Dose: 75 mg Docusate Sodium (Colace) 100 mg PO TID [facility] Last Admin: 08/16/17 18:24 Dose: 100 mg Famotidine (Pepcid) 20 mg IVP Q12 [facility] Last Admin: 08/16/17 09:47 Dose: 20 mg Heparin Sodium (Porcine) (Heparin) 5,000 units SC Q8 [facility] Last Admin: 08/16/17 14:00 Dose: 5,000 units Mexiletine HCl (Mexiletine) 150 mg PO Q8 [facility] Last Admin: 08/16/17 14:30 Dose: 150 mg Potassium Chloride (K-Dur 20 Meq Er Tab) 40 meq PO ONCE [facility] Last Admin: 08/16/17 09:52 Dose: 40 meq Potassium Chloride (K-Dur 20 Meq Er Tab) 40 meq PO BRK [facility] Last Admin: 08/16/17 09:00 Dose: 40 meq Rosuvastatin Calcium (Crestor) 20 mg PO HS [facility] Last Admin: 08/15/17 22:30 Dose: 20 mg Sennosides (Senokot Tab) 8.6 mg PO HS [facility] Last Admin: 08/15/17 22:38 Dose: 8.6 mg - Labs Labs: 08/15/17 06:20 08/15/17 06:20 PT 12.4 SECONDS (9.7-12.2) H 08/14/17 06:05 INR 1.1 08/14/17 06:05 APTT 34 SECONDS (21-34) 08/14/17 06:05 Attending/Attestation - Attestation I have personally seen and examined this patient.: Yes I have fully participated in the care of the patient.: Yes I have reviewed all pertinent clinical information, including history, physical exam and plan: Yes Notes (Text): 08/16/17 18:28 Patient was seen and examined at 10:30 AM 08/16/17 ICU Bed #3 Exam, Assessment and Plan were thoroughly gone over with the resident. Assessments: 1). S/P Code Blue/Vfib: Mexiletene 2). Hx Acute Respiratory Failure 3). CAD S/P Stent 4). Systolic Heart Failure: EF estimated at 40 %. Will need to speak with Cardiology as patient is NOT on an ACEI and NOT on BetaBlocker 5). S/P ICD Placement 08/16/17 Follow up with PT and Cardiology Dr. Velez 08/17/17 and will likely discharge patient. Aquiles Choi D.O.
--- NOTE | 2017-08-16 15:41 | CP.PCM.PN ---
Subjective - Date & Time of Evaluation Date of Evaluation: 08/16/17 Time of Evaluation: 15:41 Objective - Vital Signs/Intake and Output Vital Signs (last 24 hours): Temp Pulse Resp BP Pulse Ox 98.4 F 64 18 142/80 99 08/16/17 12:00 08/16/17 12:00 08/16/17 12:00 08/16/17 12:00 08/16/17 12:00 Intake and Output: 08/16/17 08/16/17 06:59 18:59 Intake Total 150 Output Total 300 Balance -150 - Medications Medications: Current Medications Aspirin (Ecotrin) 81 mg PO DAILY [facility] Last Admin: 08/16/17 09:48 Dose: 81 mg Clopidogrel Bisulfate (Plavix) 75 mg PO DAILY [facility] Last Admin: 08/16/17 09:47 Dose: 75 mg Docusate Sodium (Colace) 100 mg PO TID [facility] Last Admin: 08/16/17 09:52 Dose: 100 mg Famotidine (Pepcid) 20 mg IVP Q12 [facility] Last Admin: 08/16/17 09:47 Dose: 20 mg Heparin Sodium (Porcine) (Heparin) 5,000 units SC Q8 [facility] Mexiletine HCl (Mexiletine) 150 mg PO Q8 [facility] Last Admin: 08/16/17 06:45 Dose: 150 mg Potassium Chloride (K-Dur 20 Meq Er Tab) 40 meq PO ONCE [facility] Last Admin: 08/16/17 09:52 Dose: 40 meq Potassium Chloride (K-Dur 20 Meq Er Tab) 40 meq PO BRK [facility] Last Admin: 08/16/17 09:00 Dose: 40 meq Rosuvastatin Calcium (Crestor) 20 mg PO HS [facility] Last Admin: 08/15/17 22:30 Dose: 20 mg Sennosides (Senokot Tab) 8.6 mg PO HS [facility] Last Admin: 08/15/17 22:38 Dose: 8.6 mg - Labs Labs: 08/15/17 06:20 08/15/17 06:20 PT 12.4 SECONDS (9.7-12.2) H 08/14/17 06:05 INR 1.1 08/14/17 06:05 APTT 34 SECONDS (21-34) 08/14/17 06:05
--- NOTE | 2017-08-16 22:19 | CP.PCM.PN ---
Subjective - Date & Time of Evaluation Date of Evaluation: 08/16/17 Time of Evaluation: 09:30 - Subjective Subjective: Patient seen and evaluated S/P AICD POD # 1 No cardiac events Objective - Vital Signs/Intake and Output Vital Signs (last 24 hours): Temp Pulse Resp BP Pulse Ox 97.8 F 61 13 93/53 L 99 08/16/17 16:00 08/16/17 21:00 08/16/17 21:00 08/16/17 18:12 08/16/17 21:00 - Medications Medications: Current Medications Aspirin (Ecotrin) 81 mg PO DAILY [facility] Last Admin: 08/16/17 09:48 Dose: 81 mg Clopidogrel Bisulfate (Plavix) 75 mg PO DAILY [facility] Last Admin: 08/16/17 09:47 Dose: 75 mg Docusate Sodium (Colace) 100 mg PO TID [facility] Last Admin: 08/16/17 18:24 Dose: 100 mg Famotidine (Pepcid) 20 mg PO Q12H [facility] Heparin Sodium (Porcine) (Heparin) 5,000 units SC Q8 [facility] Last Admin: 08/16/17 14:00 Dose: 5,000 units Mexiletine HCl (Mexiletine) 150 mg PO Q8 [facility] Last Admin: 08/16/17 14:30 Dose: 150 mg Potassium Chloride (K-Dur 20 Meq Er Tab) 40 meq PO ONCE [facility] Last Admin: 08/16/17 09:52 Dose: 40 meq Potassium Chloride (K-Dur 20 Meq Er Tab) 40 meq PO BRK [facility] Last Admin: 08/16/17 09:00 Dose: 40 meq Rosuvastatin Calcium (Crestor) 20 mg PO HS [facility] Last Admin: 08/15/17 22:30 Dose: 20 mg Sennosides (Senokot Tab) 8.6 mg PO HS [facility] Last Admin: 08/15/17 22:38 Dose: 8.6 mg - Labs Labs: 08/15/17 06:20 08/15/17 06:20 PT 12.4 SECONDS (9.7-12.2) H 08/14/17 06:05 INR 1.1 08/14/17 06:05 APTT 34 SECONDS (21-34) 08/14/17 06:05
[2017-08-17 06:38] LABS: BASO % 0.5 % (0.0-2.0); EOS # 0.1 K/uL (0.0-0.7); EOS % 1.2 % (0.0-4.0); HEMATOCRIT 46.2 % (35.0-51.0); LYMPH # 1.6 K/uL (1.0-4.3); LYMPH % 17.6 % (20.0-40.0); MEAN CELL VOLUME 97.4 fL (80.0-94.0); MEAN CORPUSCULAR HEMOGLOBIN 32.7 pg (27.0-31.0); MEAN CORPUSCULAR HGB CONC 33.6 g/dL (33.0-37.0); MEAN PLATELET VOLUME 8.3 fL (7.2-11.7); MONO # 1.2 K/uL (0.0-0.8); MONO % 12.6 % (0.0-10.0); RED CELL DISTRIBUTION WIDTH 13.5 % (11.5-14.5); WHITE BLOOD COUNT 9.2 K/uL (4.8-10.8)
[2017-08-17 07:06] LABS: ALB/GLOB RATIO 1.1 (1.0-2.1); ALKALINE PHOSPHATASE 73 U/L (38-126); ALT/SGPT 48 U/L (21-72); AST/SGOT 32 U/L (17-59); BILIRUBIN,TOTAL 0.7 mg/dL (0.2-1.3); BLOOD UREA NITROGEN 10 mg/dL (9-20); CARBON DIOXIDE 25 mmol/L (22-30); CHLORIDE 101 mmol/L (98-107); GFR AFRICAN-AMERICAN > 60; GLUCOSE,RANDOM 86 mg/dL (75-110); SODIUM 138 mmol/L (132-148); TOTAL PROTEIN 7.6 g/dL (6.3-8.3)
[2017-08-17] MEDS: Potassium Chloride 20 mEq ER Tab PO SCH ×2 (10:03→10:05)
--- NOTE | 2017-08-17 15:15 | CP.PCM.DIS ---
Provider - Provider Date of Admission: 08/08/17 22:59 Attending physician: Lonnie Lara MD Consults: Cardiology Dr. Hampton s/p cardiac arrest, Dr. Velez Pulmonology DR. Salas Time Spent in preparation of Discharge (in minutes): 35 Hospital Course - Lab Results Lab Results: Micro Results 08/09/17 00:20 Nose MRSA Culture (Admit) - Final MRSA NOT DETECTED Most Recent Lab Values WBC 9.2 K/uL (4.8-10.8) D 08/17/17 06:29 RBC 4.74 Mil/uL (4.40-5.90) 08/17/17 06:29 Hgb 15.5 g/dL (12.0-18.0) 08/17/17 06:29 Hct 46.2 % (35.0-51.0) 08/17/17 06:29 MCV 97.4 fL (80.0-94.0) H 08/17/17 06:29 MCH 32.7 pg (27.0-31.0) H 08/17/17 06:29 MCHC 33.6 g/dL (33.0-37.0) 08/17/17 06:29 RDW 13.5 % (11.5-14.5) 08/17/17 06:29 Plt Count 227 K/uL (130-400) 08/17/17 06:29 MPV 8.3 fL (7.2-11.7) 08/17/17 06: Neut % (Auto) 68.1 % (50.0-75.0) 08/17/17 06:29 Lymph % (Auto) 17.6 % (20.0-40.0) L 08/17/17 06:29 [place] % (Auto) 12.6 % (0.0-10.0) H 08/17/17 06:29 Eos % (Auto) 1.2 % (0.0-4.0) 08/17/17 06:29 Baso % (Auto) 0.5 % (0.0-2.0) 08/17/17 06:29 Neut # 6.3 K/uL (1.8-7.0) 08/17/17 06:29 Lymph # 1.6 K/uL (1.0-4.3) 08/17/17 06:29 [place] # 1.2 K/uL (0.0-0.8) H 08/17/17 06:29 Eos # 0.1 K/uL (0.0-0.7) 08/17/17 06:29 Baso # 0.0 K/uL (0.0-0.2) 08/17/17 06:29 Neutrophils % (Manual) 82 % (50-75) H 08/09/17 06:43 Band Neutrophils % 4 % (0-2) H 08/09/17 06:43 Lymphocytes % (Manual) 8 % (20-40) L 08/09/17 06:43 Reactive Lymphs % 2 % (0-0) H 08/09/17 01:00 Monocytes % (Manual) 6 % (0-10) 08/09/17 06:43 Differential Comment 08/12/17 06:36 Toxic Granulation Present 08/09/17 01:00 Platelet Estimate Normal (NORMAL) 08/09/17 06:43 Large Platelets Present 08/09/17 06:43 Giant Platelets Present 08/09/17 06:43 RBC Morphology Normal 08/09/17 01:00 PT 12.4 SECONDS (9.7-12.2) H 08/14/17 06:05 INR 1.1 08/14/17 06:05 APTT 34 SECONDS (21-34) 08/14/17 06:05 Puncture Site Rb 08/10/17 05:00 pCO2 37 mm/Hg (35-45) 08/10/17 05:00 pO2 146 mm/Hg (80-100) H 08/10/17 05:00 HCO3 21.3 mmol/L (21-28) 08/10/17 05:00 ABG pH 7.35 (7.35-7.45) 08/10/17 05:00 ABG Total CO2 21.5 mmol/L (22-28) L 08/10/17 05:00 ABG O2 Saturation 99.0 % (95-98) H 08/10/17 05:00 ABG Base Excess -4.6 mmol/L (-2.0-3.0) L 08/10/17 05:00 ABG Hemoglobin 15.3 g/dL (11.7-17.4) 08/10/17 05:00 ABG Carboxyhemoglobin 1.2 % (0.5-1.5) 08/10/17 05:00 POC ABG HHb (Measured) 1.0 % (0.0-5.0) 08/10/17 05:00 ABG Methemoglobin 1.1 % (0.0-3.0) 08/10/17 05:00 Andres Test Na 08/10/17 05:00 A-a O2 Difference 164.0 mm/Hg 08/10/17 05:00 Respiratory Index 1.1 08/10/17 05:00 Hgb O2 Saturation 96.7 % (95.0-98.0) 08/10/17 05:00 Vent Mode Prvc 08/10/17 05:00 Mechanical Rate 12 08/10/17 05:00 FiO2 50.0 % 08/10/17 05:00 Tidal Volume 500 08/10/17 05:00 PEEP 5 08/10/17 05:00 Sodium 138 mmol/L (132-148) 08/17/17 06:29 Potassium 4.0 mmol/L (3.6-5.2) 08/17/17 06:29 Chloride 101 mmol/L (98-107) 08/17/17 06:29 Carbon Dioxide 25 mmol/L (22-30) 08/17/17 06:29 Anion Gap 17 (10-20) 08/17/17 06:29 BUN 10 mg/dL (9-20) 08/17/17 06:29 Creatinine 1.1 mg/dL (0.8-1.5) 08/17/17 06:29 Est GFR ( Amer) > 60 08/17/17 06:29 Est GFR (Non-Af Amer) > 60 08/17/17 06:29 POC Glucose (mg/dL) 149 mg/dL (65-110) H 08/08/17 21:35 Random Glucose 86 mg/dL (75-110) 08/17/17 06:29 Calcium 9.0 mg/dl (8.6-10.4) 08/17/17 06:29 Phosphorus 3.5 mg/dL (2.5-4.5) 08/14/17 06:05 Magnesium 2.0 mg/dL (1.6-2.3) 08/15/17 06:20 Total Bilirubin 0.7 mg/dL (0.2-1.3) 08/17/17 06:29 AST 32 U/L (17-59) 08/17/17 06:29 ALT 48 U/L (21-72) 08/17/17 06:29 Alkaline Phosphatase 73 U/L (38-126) 08/17/17 06:29 Total Creatine Kinase 69 U/L (55-170) 08/11/17 06:16 CK-MB (Mass) 1.07 ng/mL (0.0-3.38) 08/11/17 06:16 Troponin I 0.2560 ng/mL (0.00-0.120) H* 08/11/17 06:16 NT-Pro-B Natriuret Pep 57.4 pg/mL (0-900) 08/08/17 21:37 Total Protein 7.6 g/dL (6.3-8.3) 08/17/17 06:29 Albumin 4.0 g/dL (3.5-5.0) 08/17/17 06:29 Globulin 3.6 gm/dL (2.2-3.9) 08/17/17 06:29 Albumin/Globulin Ratio 1.1 (1.0-2.1) 08/17/17 06:29 Urine Color Yellow (YELLOW) 08/09/17 08:41 Urine Clarity [place] (Clear) 08/09/17 08:41 Urine pH 5.0 (5.0-8.0) 08/09/17 08:41 Ur Specific [place] 1.031 (1.003-1.030) H 08/09/17 08:41 Urine Protein 1+ mg/dL (NEGATIVE) H 08/09/17 08:41 Urine Glucose (UA) Normal mg/dL (Normal) 08/09/17 08:41 Urine Ketones Negative mg/dL (NEGATIVE) 08/09/17 08:41 Urine Blood 2+ (NEGATIVE) H 08/09/17 08:41 Urine Nitrate Negative (NEGATIVE) 08/09/17 08:41 Urine Bilirubin Negative (NEGATIVE) 08/09/17 08:41 Urine Urobilinogen Normal mg/dL (0.2-1.0) 08/09/17 08:41 Ur Leukocyte Esterase 1+ [place]/uL (Negative) H 08/09/17 08:41 Urine WBC (Auto) 14 /hpf (0-5) H 08/09/17 08:41 Urine RBC (Auto) 24 /hpf (0-3) H 08/09/17 08:41 Urine Bacteria Rare (<OCC) 08/09/17 08:41 Blood Type O POSITIVE 08/09/17 01:05 Antibody Screen Negative 08/09/17 01:05 - Hospital Course Hospital Course: 76 yo male with hx HTN who had Cardiac Cath & PCI with [facility] to Cx earlier today at [facility] with Dr. Velez. Patient brought in by BLS after having LOS and arrhythmia. Patient shocked twice and returned to rhythm. Patient given Mg and started on Amiodarone, but had recurrent VF arrythmia without pulse requiring defibrillation. Patient intubated in ED and Code Heart activated. Patient sent senior label specialist and started on Levophed. Patient found to have patent stent and okay left ventricular function by Dr. Velez. Patient had another ventricular arrythmia requiring multiple defibrillations and code blue called. Patient started on Lidocaine and K+. Patient intubated and on propofol and unable to give history or answer ROS Patient was transferred to [facility] for defibrillator placement and tolerated the procedure well. PAtient tolerated diet and pain after procedure. Incentive spirometer in place. Patient demonstrated ability to use the spirometer. Patient denied any issues during hospital stay and tolerated pain well. Today, patient is stable for transfer to [facility] for rehabilitation and was approved by insurance company. - Date & Time of H&P Date of H&P: 08/17/17 Time of H&P: 18:58 Discharge Exam - Head Exam Head Exam: NORMAL INSPECTION - Eye Exam Eye Exam: EOMI, Normal appearance - ENT Exam ENT Exam: Mucous Membranes Moist - Respiratory Exam Respiratory Exam: NORMAL BREATHING PATTERN - Cardiovascular Exam Cardiovascular Exam: REGULAR RHYTHM, +S1, +S2 - GI/Abdominal Exam GI & Abdominal Exam: Normal Bowel Sounds, Soft - Extremities Exam Extremities exam: full ROM Additional comments: no pedal edema - Neurological Exam Neurological exam: Alert, Oriented x3 - Skin Skin Exam: Dry Additional comments: dressing over defibrillator site c/d/i Discharge Plan - Follow Up Plan Condition: CRITICAL Disposition: Trans to Other Acute Care Hosp Instructions: Myocardial Infarction (DC), Implantable Cardioverter Defibrillator (DC) Additional Instructions: patient is stable for transfer to [facility] patient is instructed to follow up with Dr. Velez in one week please take medications as directed
--- NOTE | 2017-08-17 16:01 | CP.PCM.PN ---
Subjective - Date & Time of Evaluation Date of Evaluation: 08/17/17 Time of Evaluation: 16:01 Objective - Vital Signs/Intake and Output Vital Signs (last 24 hours): Temp Pulse Resp BP Pulse Ox 97.7 F 60 24 126/78 92 L 08/17/17 12:00 08/17/17 11:00 08/17/17 11:00 08/17/17 10:13 08/17/17 11:00 Intake and Output: 08/17/17 08/17/17 06:59 18:59 Intake Total 360 Output Total 600 Balance -240 - Medications Medications: Current Medications Aspirin (Ecotrin) 81 mg PO DAILY [facility] Last Admin: 08/17/17 10:02 Dose: 81 mg Carvedilol (Coreg) 3.125 mg PO BID [facility] Clopidogrel Bisulfate (Plavix) 75 mg PO DAILY [facility] Last Admin: 08/17/17 10:02 Dose: 75 mg Docusate Sodium (Colace) 100 mg PO TID [facility] Last Admin: 08/17/17 15:32 Dose: 100 mg Famotidine (Pepcid) 20 mg PO Q12H [facility] Last Admin: 08/17/17 10:02 Dose: 20 mg Heparin Sodium (Porcine) (Heparin) 5,000 units SC Q8 [facility] Last Admin: 08/17/17 15:33 Dose: 5,000 units Mexiletine HCl (Mexiletine) 150 mg PO Q8 [facility] Last Admin: 08/17/17 15:33 Dose: 150 mg Potassium Chloride (K-Dur 20 Meq Er Tab) 40 meq PO ONCE [facility] Last Admin: 08/16/17 09:52 Dose: 40 meq Potassium Chloride (K-Dur 20 Meq Er Tab) 40 meq PO BRK [facility] Last Admin: 08/17/17 10:05 Dose: 40 meq Rosuvastatin Calcium (Crestor) 20 mg PO HS [facility] Last Admin: 08/16/17 23:59 Dose: 20 mg Sennosides (Senokot Tab) 8.6 mg PO HS [facility] Last Admin: 08/16/17 23:59 Dose: Not Given - Labs Labs: 08/17/17 06:29 08/17/17 06:29 PT 12.4 SECONDS (9.7-12.2) H 08/14/17 06:05 INR 1.1 08/14/17 06:05 APTT 34 SECONDS (21-34) 08/14/17 06:05
[2017-08-17 17:44] VITALS: BP 111/63; PULSE 75; RESP 15; O2SAT 95
[2017-08-17 17:46] VITALS: TEMP 97.3
--- NOTE | 2017-08-18 15:41 | CARD ---
APPROVED REPORT EKG Measurement Heart [id number] 192P [id number] <Conclusion> Sinus bradycardia with premature atrial complexes Low voltage QRS Borderline ECG
== END 2017-08-17 20:45 | DRG 280 ==
LOC: C.ER 21:18 → C.9I 22:59
PROVIDERS: ADMIT Internal Medicine; ATTEND Internal Medicine
PROC: B2111ZZ Fluoroscopy of Multiple Coronary Arteries using Low Osmolar Contrast (ICD-10-PCS; principal; 2017-08-09)
PROC: 5A1945Z Respiratory Ventilation, 24-96 Consecutive Hours (ICD-10-PCS; 2017-08-09)
PROC: 5A1223Z Performance of Cardiac Pacing, Continuous (ICD-10-PCS; 2017-08-09)
PROC: B2151ZZ Fluoroscopy of Left Heart using Low Osmolar Contrast (ICD-10-PCS; 2017-08-09)
PROC: B3101ZZ Fluoroscopy of Thoracic Aorta using Low Osmolar Contrast (ICD-10-PCS; 2017-08-09)
PROC: 0BH17EZ Insertion of Endotracheal Airway into Trachea, Via Natural or Artificial Opening (ICD-10-PCS; 2017-08-09)
DX: I21.4 Non-ST elevation (NSTEMI) myocardial infarction (principal); I49.01 Ventricular fibrillation; J96.00 Acute respiratory failure, unspecified whether with hypoxia or hypercapnia; I46.2 Cardiac arrest due to underlying cardiac condition; I50.20 Unspecified systolic (congestive) heart failure; R57.9 Shock, unspecified; I47.2 Ventricular tachycardia; I11.0 Hypertensive heart disease with heart failure; E11.9 Type 2 diabetes mellitus without complications; E66.9 Obesity, unspecified; E78.5 Hyperlipidemia, unspecified; E87.6 Hypokalemia; I25.10 Atherosclerotic heart disease of native coronary artery without angina pectoris; K59.00 Constipation, unspecified; Z79.82 Long term (current) use of aspirin; Z95.5 Presence of coronary angioplasty implant and graft